=== PATIENT | female | born 1935 | race Caucasian/White ===

== ENCOUNTER → 2016-11-24 | Outpatient (CLI) | payer MEDICARE, BC ==
--- NOTE | 2016-11-25 13:09 | MM ---
Reason for exam: screening (asymptomatic). Last mammogram was performed 1 year and 1 month ago. History: Patient is postmenopausal. Benign right US cyst aspiration of the right breast, July 11, 2006. Benign stereotactic core biopsy of the left breast, February 22, 2003. Core biopsy of the left breast. Took estrogen for 33 years beginning at age 41. Physical Findings: A clinical breast exam by your physician is recommended on an annual basis and results should be correlated with mammographic findings. MG 3D Screening Mammo W/Cad Bilateral CC and MLO view(s) were taken. Prior study comparison: November 06, 2015, bilateral MG 3d screening mammo w/cad. October 30, 2014, bilateral MG screening mammo w CAD. October 02, 2013, bilateral MG screening mammo w CAD. September 29, 2011, bilateral digital screening mammo w/CAD. The breast tissue is heterogeneously dense. This may lower the sensitivity of mammography. There are benign appearing bilateral calcifications present back to 8-8-12. No suspicious abnormality. No significant changes when compared with prior studies. ASSESSMENT: Benign, BI-RAD 2 RECOMMENDATION: Routine screening mammogram of both breasts in 1 year.
== END | disposition home or self-care (01) ==
LOC: RADMAMWWP 11:00
PROVIDERS: ATTEND Family Medicine
DX: Z12.31 Encounter for screening mammogram for malignant neoplasm of breast (principal)
CPT/HCPCS: 77063; G0202

== ENCOUNTER → 2020-09-10 | Outpatient (CLI) | payer MEDICARE, BC ==
[~2020-09-10] MED LIST: IOPAMIDOL CONTRAST (ORAL USE) VIAL PO PRN
--- NOTE | 2020-09-10 10:40 | CT ---
EXAMINATION TYPE: CT abdomen pelvis wo con DATE OF EXAM: 09/10/2020 COMPARISON: None HISTORY: Bowel obstruction CT DLP: 261.00 mGycm Examination of the solid and hollow viscera is limited given the lack of contrast. FINDINGS: LUNG BASES: No evidence for nodule. No evidence for infiltrate. LIVER/GB: The gallbladder is unremarkable. No space-occupying hepatic lesion. PANCREAS: No pancreatic mass identified. No inflammatory process seen. SPLEEN: No evidence for splenomegaly. No intrasplenic lesions seen. ADRENALS: No adrenal nodules identified. No evidence for thickening. KIDNEYS: No evidence for renal mass. No nephrolithiasis. No hydronephrosis. BOWEL: Appendix has a normal appearance. No evidence of bowel obstruction. No inflammatory process. T he stomach is almost entirely intrathoracic in location. Contrast is noted within the small bowel. No dilated bowel identified. No evidence for free air or abscess. All Lymph nodes: No evidence for adenopathy greater than 1 cm. Abdominal aorta: Atheromatous changes seen. No evidence for aneurysm. Genital organs: No significant abnormality. Other: No significant abnormality. IMPRESSION: The stomach is almost entirely intrathoracic in location. No evidence for obstruction. No inflammator y process.
--- NOTE | 2020-09-10 13:13 | FL ---
EXAMINATION TYPE: FL barium swallow DATE OF EXAM: 09/10/2020 CLINICAL HISTORY: Hiatal hernia TECHNIQUE: A double contrast esophagram is performed utilizing air and barium. A total of 42 second s of fluoroscopic time was utilized during procedure and 71 images obtained. COMPARISON: None FINDINGS: There is normal transit of contrast through the esophagus without holdup. No definite intri nsic or extrinsic mass is seen. No gastroesophageal reflux was observed. Organoaxial volvulus is susp ected. 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
== END | disposition home or self-care (01) ==
LOC: RADCTMAIN 07:45
PROVIDERS: ATTEND Surgery Plastic and Reconstructive Surgery
DX: K44.9 Diaphragmatic hernia without obstruction or gangrene (principal)
CPT/HCPCS: 36415; 74176; 74220; 82565; 84520

== ENCOUNTER 2020-09-24 07:27 | Day surgery (SDC) | payer MEDICARE, BC ==
[2020-09-19 10:08] VITALS: BMI 24.5
[~2020-09-24 07:27] MED LIST changes: -IOPAMIDOL CONTRAST (ORAL USE) VIAL PO PRN; +LACTATED RINGERS 1,000 ML IV SCH
[2020-09-24 07:50] VITALS: RESP 16; TEMP 96.4
[2020-09-24] MEDS ORDERED: LIDOCAINE 1% INJ 10MG/ML (20 ML MDV) ONE (08:13)
[2020-09-24] MEDS ORDERED: PROPOFOL 10 MG/ML 20 ML VIAL IV ONE (08:13)
--- NOTE | 2020-09-24 08:18 | P.GSHP ---
History of Present Illness H&P Date: 09/24/20 CHIEF COMPLAINT: GERD HISTORY OF PRESENT ILLNESS: The patient is a 85-year-old female who presents reports gastroesophageal reflux disease. Upper endoscopy was offered for further evaluation and management. PAST MEDICAL HISTORY: Please see list. PAST SURGICAL HISTORY: Please see list. MEDICATIONS: Please see list. ALLERGIES: Please see list. SOCIAL HISTORY: No illicit drug use FAMILY HISTORY: No reports of Crohn disease or ulcerative colitis. REVIEW OF ORGAN SYSTEMS: CONSTITUTIONAL: No reports of fevers or chills. GI: Denies any blood in stools or constipation. PHYSICAL EXAM: VITAL SIGNS: Stable GENERAL: Well-developed and pleasant in no acute distress. HEENT: No scleral icterus. Extraocular movements grossly intact. Moist buccal mucosa. NECK: Supple without lymphadenopathy. CHEST: Unlabored respirations. Equal bilateral excursions. CARDIOVASCULAR: Regular rate and rhythm. Distal 2+ pulses. ABDOMEN: Soft, nondistended. MUSCULOSKELETAL: No clubbing, cyanosis, or edema. ASSESSMENT: 1. Gastroesophageal reflux disease PLAN: 1. Recommend proceeding with an upper endoscopy Patient has advanced directive Past Medical History Past Medical History: GERD/Reflux, Hyperlipidemia, Hypertension, Osteoarthritis (OA), Renal Disease, Skin Disorder Additional Past Medical History / Comment(s): hiatal hernia, sensitive skin, "weak bladder"-urinary leakage, reflux/gas/abdominal pain especially when bending over, varicose veins History of Any Multi-Drug Resistant Organisms: None Reported Past Surgical History: Appendectomy, Bladder Surgery, Cardiac Valve Replacement, Heart Catheterization, Hysterectomy, Orthopedic Surgery Additional Past Surgical History / Comment(s): aortic valve replacement 2019, rt leg surgery for varicose veins, eliana carpal tunnel, bladder sling, eliana cataracts Past Anesthesia/Blood Transfusion Reactions: Motion Sickness Smoking Status: Never smoker - Past Family History Mother Family Medical History: No Reported History Medications and Allergies Home Medications Medication Instructions Recorded Confirmed Type Aspirin [Adult Low Dose Aspirin EC] 81 mg PO DAILY 09/19/20 09/24/20 History Levothyroxine Sodium [Synthroid] 88 mcg PO DAILY 09/19/20 09/19/20 History Metoprolol Tartrate [Lopressor] 25 mg PO BID 09/19/20 09/19/20 History Multivit-Min/FA/Lycopen/Lutein 1 each PO DAILY 09/19/20 09/19/20 History [Centrum Silver Tablet] [place]-3 Fatty Acids/Fish Oil [Fish 1 each PO DAILY 09/19/20 09/19/20 History Oil 1,000 mg Softgel] Omeprazole [PriLOSEC] 40 mg PO W/SUPPER 09/19/20 09/24/20 History Ubidecarenone [Co Q-10] 100 mg PO DAILY 09/19/20 09/24/20 History gemfibroziL [Lopid] 600 mg PO AC-BID 09/19/20 09/19/20 History Allergies Allergy/AdvReac Type Severity Reaction Status Date / Time adhesive tape Allergy Rash/Hives Verified 09/24/20 07:44 doxycycline Allergy Unknown Verified 09/24/20 07:44 Sulfa (Sulfonamide Allergy Unknown Verified 09/24/20 07:44 Antibiotics) Surgical - Exam Vital Signs Temp Pulse Resp BP Pulse Ox 96.4 F L 55 L 16 140/66 96 09/24/20 07:46 09/24/20 07:46 09/24/20 07:46 09/24/20 07:46 09/24/20 07:46
--- NOTE | 2020-09-24 08:42 | P.PCN ---
Date of Procedure: 09/24/20 Description of Procedure: PREOPERATIVE DIAGNOSIS: Gastroesophageal reflux disease. Hiatal hernia POSTOPERATIVE DIAGNOSIS: Gastritis. Gastroesophageal reflux disease. Diaphragmatic hiatal hernia, paraesophageal OPERATION: Esophagogastroduodenoscopy with biopsies along antrum. SURGEON: Dominga Villar MD ANESTHESIA: MAC. INDICATIONS: The patient is a 85-year-old female who presents with a history of reflux disease. Benefits and risks of the procedure were described. Informed consent was obtained. DESCRIPTION: The patient was brought into the endoscopy suite and laid in the left lateral decubitus position. An Olympus gastroscope was passed along the posterior oropharynx down to the distal esophagus where the squamocolumnar junction was encountered at 32 cm from the incisors. The stomach was entered and no bile reflux was found. Additional findings are listed below. Biopsies with cold for ceps were obtained of the antrum. The first through third portion of the duodenum was examined and unremarkable. Retroflexion of the scope confirmed Hill grade 4 lower esophageal valve. The squamocolumnar junction demonstrated LA grade A erosive esophagitis. The stomach was desufflated. The patient tolerated the procedure well. FINDINGS: Squamocolumnar junction 32 cm from the incisors. Diaphragmatic hiatus at 35 cm. 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 LA grade A erosive esophagitis. No active duodenitis. Chronic gastritis RECOMMENDATIONS: 1. Recommend CT of the chest and/or esophagram to elucidate paraesophageal hiatal hernia Plan - Discharge Summary New Discharge Prescriptions: Continue Ubidecarenone [Co Q-10] 100 mg PO DAILY Multivit-Min/FA/Lycopen/Lutein [Centrum Silver Tablet] 1 each PO DAILY gemfibroziL [Lopid] 600 mg PO AC-BID Metoprolol Tartrate [Lopressor] 25 mg PO BID Aspirin [Adult Low Dose Aspirin EC] 81 mg PO DAILY [place]-3 Fatty Acids/Fish Oil [Fish Oil 1,000 mg Softgel] 1 each PO DAILY Omeprazole [PriLOSEC] 40 mg PO W/SUPPER Levothyroxine Sodium [Synthroid] 88 mcg PO DAILY Discharge Medication List Aspirin [Adult Low Dose Aspirin EC] 81 mg PO DAILY 09/19/20 [History] Levothyroxine Sodium [Synthroid] 88 mcg PO DAILY 09/19/20 [History] Metoprolol Tartrate [Lopressor] 25 mg PO BID 09/19/20 [History] Multivit-Min/FA/Lycopen/Lutein [Centrum Silver Tablet] 1 each PO DAILY 09/19/20 [History] [place]-3 Fatty Acids/Fish Oil [Fish Oil 1,000 mg Softgel] 1 each PO DAILY 09/19/20 [History] Omeprazole [PriLOSEC] 40 mg PO W/SUPPER 09/19/20 [History] Ubidecarenone [Co Q-10] 100 mg PO DAILY 09/19/20 [History] gemfibroziL [Lopid] 600 mg PO AC-BID 09/19/20 [History] Follow up Appointment(s)/Referral(s): Dominga Villar MD [STAFF PHYSICIAN] - 09/30/20 Patient Instructions/Handouts: Hiatal Hernia (DC) Discharge Disposition: HOME SELF-CARE
[2020-09-24 09:04] VITALS: BP 102/59; PULSE 66
== END 2020-09-24 10:00 | disposition home or self-care (01) ==
LOC: ORWHC2ENDO 07:27
PROVIDERS: ATTEND Surgery Plastic and Reconstructive Surgery
DX: K29.70 Gastritis, unspecified, without bleeding (principal); K44.9 Diaphragmatic hernia without obstruction or gangrene; E78.5 Hyperlipidemia, unspecified; K21.9 Gastro-esophageal reflux disease without esophagitis; I10 Essential (primary) hypertension; M19.90 Unspecified osteoarthritis, unspecified site; Z79.82 Long term (current) use of aspirin; Z88.2 Allergy status to sulfonamides; Z90.49 Acquired absence of other specified parts of digestive tract; Z95.2 Presence of prosthetic heart valve
CPT/HCPCS: 43239; 88305; J2001; J2704

== ENCOUNTER 2020-11-12 11:55 | Inpatient (IN) | payer MEDICARE, BC ==
[~2020-11-12 11:55] MED LIST changes: +HEPARIN SODIUM,PORCINE 10,000 UNIT in SODIUM CHLORIDE 0.9% 1,000 ML IRRIGATION PRN; +HEPARIN SODIUM,PORCINE 2,500 UNIT in SODIUM CHLORIDE 0.9% 250 ML IRRIGATION PRN; -LACTATED RINGERS 1,000 ML IV SCH
--- NOTE | 2020-11-12 12:57 | ED ---
Chest Pain HPI - General Chief Complaint: Chest Pain Stated Complaint: elevated troponin Time Seen by Provider: 11/12/20 12:13 Source: patient, EMS, RN notes reviewed Mode of arrival: EMS Limitations: no limitations - History of Present Illness Initial Comments: 85-year-old female with hypertension history of thyroid disease history of cardiac valve replacement who presents from The hospital after presenting this morning with complaints of chest pain last evening states the pain was sharp across her chest down both arms and across her back. Lasted 2 or 3 hours she said she felt better when she laid down. This morning she is asymptomatic she was found the have a markedly elevated troponin no obvious ST elevation lower. She currently has no pain no place at this time. He did recently have a hiatal hernia repair done about one week ago at [facility] in [facility] Complaint: chest pain - Related Data Home Medications Medication Instructions Recorded Confirmed Aspirin [Adult Low Dose Aspirin EC] 81 mg PO DAILY 09/19/20 09/24/20 Levothyroxine Sodium [Synthroid] 88 mcg PO DAILY 09/19/20 09/19/20 Metoprolol Tartrate [Lopressor] 25 mg PO BID 09/19/20 09/19/20 Multivit-Min/FA/Lycopen/Lutein 1 each PO DAILY 09/19/20 09/19/20 [Centrum Silver Tablet] [place]-3 Fatty Acids/Fish Oil [Fish 1 each PO DAILY 09/19/20 09/19/20 Oil 1,000 mg Softgel] Omeprazole [PriLOSEC] 40 mg PO W/SUPPER 09/19/20 09/24/20 Ubidecarenone [Co Q-10] 100 mg PO DAILY 09/19/20 09/24/20 gemfibroziL [Lopid] 600 mg PO AC-BID 09/19/20 09/19/20 Allergies Allergy/AdvReac Type Severity Reaction Status Date / Time adhesive tape Allergy Rash/Hives Verified 09/24/20 07:44 doxycycline Allergy Unknown Verified 09/24/20 07:44 Sulfa (Sulfonamide Allergy Unknown Verified 09/24/20 07:44 Antibiotics) Review of Systems ROS Statement: Those systems with pertinent positive or pertinent negative responses have been documented in the HPI. ROS Other: All systems not noted in ROS Statement are negative. EKG Findings - EKG Results: EKG: interpreted by ERMD, sinus rhythm (Sinus rhythm a 65. Interval 136 QRS anabaptist 86 QT since QTC 4:30/447 evidence of possible left atrial enlargement old inferior changes this is unchanged from the EKG presented from [facility].) Past Medical History Past Medical History: Atrial Fibrillation, GERD/Reflux, Hyperlipidemia, Thyroid Disorder Past Surgical History: Adenoidectomy, Cardiac Valve Replacement, Hernia Repair Additional Past Surgical History / Comment(s): heart valve Smoking Status: Never smoker Past Alcohol Use History: Rare Past Drug Use History: None Reported General Exam - General Exam Comments Initial Comments: This is a well-developed well-nourished awake alert oriented 3 female Limitations: no limitations General appearance: alert, in no apparent distress Head exam: Present: atraumatic, normocephalic, normal inspection Eye exam: Present: normal appearance, PERRL, EOMI. Absent: scleral icterus, conjunctival injection, periorbital swelling ENT exam: Present: normal exam, mucous membranes moist Neck exam: Present: normal inspection. Absent: tenderness, meningismus, lymphadenopathy Respiratory exam: Present: normal lung sounds bilaterally. Absent: respiratory distress, wheezes, rales, rhonchi, stridor Cardiovascular Exam: Present: regular rate, normal rhythm, normal heart sounds. Absent: systolic murmur, diastolic murmur, rubs, gallop, clicks GI/Abdominal exam: Present: soft, normal bowel sounds. Absent: distended, tenderness, guarding, rebound, rigid Extremities exam: Present: normal inspection, full ROM, normal capillary refill. Absent: tenderness, pedal edema, joint swelling, calf tenderness Back exam: Present: normal inspection Neurological exam: Present: alert, oriented X3, CN II-XII intact Psychiatric exam: Present: normal affect, normal mood Skin exam: Present: warm, dry, intact, normal color. Absent: rash Course Vital Signs 11/12/20 11:58 Temperature 98.7 F Pulse Rate 66 Respiratory 18 Rate Blood Pressure 128/61 O2 Sat by Pulse 95 Oximetry Chest Pain MDM - MDM I did review the materials presented from [facility] I did discuss the case both with Dr. Ruiz and Dr. Mast from cardiology. Patient will be admitted for further evaluation and treatment. Disposition Clinical Impression: Non-ST elevation myocardial infarction (NSTEMI), Chest pain Disposition: ADMITTED IP TO THIS HOSP Condition: Fair Referrals: Ayden Adrian MD [Primary Care Provider] - 1-2 days
[2020-11-12] MEDS ORDERED: HEPARIN SODIUM 1,000 UN/ML (10ML VL) IV PRN (12:58)
[2020-11-12] MEDS ORDERED: HEPARIN SOD,PORK IN 0.45% NACL 25,000 UNIT in 0.45% NACL 1 250ML.BAG IV SCH (13:00)
[2020-11-12] MEDS ORDERED: NALOXONE 0.4 MG/ML 1 ML VIAL IV PRN (13:01)
[2020-11-12] MEDS ORDERED: NITROGLYCERIN SL TABS 0.4 MG TAB SUBLINGUAL PRN (13:08)
[2020-11-12] MEDS ORDERED: ATORVASTATIN 80 MG TAB PO STA (13:08)
[2020-11-12] MEDS ORDERED: ASPIRIN 325 MG TAB PO STA (13:08)
[2020-11-12] MEDS ORDERED: SODIUM CHLORIDE 0.9% 1,000 ML in EMPTY BAG 1 BAG IV ONE (13:08)
[2020-11-12] MEDS ORDERED: ALPRAZolam 0.5 MG TAB PO PRN (13:08)
[2020-11-12] MEDS ORDERED: ALPRAZolam 0.25 MG TAB PO PRN (13:08)
[2020-11-12 13:25] LABS: Basophils % (A) 0 %; Eosinophils # (A) 0.3 k/uL (0-0.7); Eosinophils % (A) 3 %; HCT 34.4 % (34.0-46.0); HGB 11.3 gm/dL (11.4-16.0); Lymphocytes # (A) 1.4 k/uL (1.0-4.8); Lymphocytes % (A) 13 %; MCHC 32.8 g/dL (31.0-37.0); MCV 97.4 fL (80.0-100.0); Mean Platelet Volume 9.2; Monocytes # (A) 0.6 k/uL (0-1.0); Monocytes % (A) 6 %; Neutrophils # (A) 8.4 k/uL (1.3-7.7); Neutrophils % (A) 77 %; Platelet Count 308 k/uL (150-450); RBC 3.53 m/uL (3.80-5.40); RDW 12.4 % (11.5-15.5); WBC 10.9 k/uL (3.8-10.6)
[2020-11-12 13:49] LABS: INR 1.1 (<1.2); Prothrombin Time 11.7 sec (9.0-12.0)
[2020-11-12 14:03] LABS: Partial Thromboplastin Time 118.2 sec (22.0-30.0)
[2020-11-12 16:51] LABS: Glucose,Whole Blood 121 mg/dL (75-99)
[2020-11-12] MEDS ORDERED: MAG HYDROX/AL HYDROX/SIMETH 30 ML CUP PO PRN (17:18)
[2020-11-12] MEDS ORDERED: ACETAMINOPHEN TAB 325 MG TAB PO PRN (17:18)
[2020-11-12] MEDS ORDERED: MELATONIN 3 MG TABLET PO PRN (17:18)
[2020-11-12] MEDS ORDERED: CALCIUM CARBONATE 500 MG CHEWABLE PO PRN (17:18)
[2020-11-12] MEDS ORDERED: ONDANSETRON 4 MG/2 ML VIAL IVP PRN (17:18)
--- NOTE | 2020-11-12 17:20 | P.HPIM ---
History of Present Illness H&P Date: 11/12/20 Chief Complaint: Chest pain History of presenting complaint: This is a pleasant 85-year-old patient follows with Dr. Adrian. 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 Patient had an incarcerated stomach and one week ago underwent hiatal hernia repair by in [facility]. Patient was referred by Dr. Riojas, of her surgeon from [facility]. Patient also has a PEG tube to support the stomach and does not use for feeding. Patient is on a liquid diet with no lumps and bumps. Patient's had stress test in the past on a bit negative and does follow with a nanny caregiver. Yesterday patient's is feeling tired and yesterday evening started having chest pain. It went down to both the arms. Did dizzy. This morning went to [facility]. Patient reported for acute PR with a troponin in up to 24. EKG showed peaked T waves. Cartilage was consulted. Patient seen by Dr. Velazquez and is planning to take the patient to the cardiac cath lab manager. Patient has some residual chest pain. Patient's [id number] at the bedside. Patient recently sold a house and is in process of moving to [place]. Review of systems: GEN.: Tired EYES: None HEENT: None NECK: None RESPIRATORY: None CARDIOVASCULAR: [As above GASTROINTESTINAL: Occasional heartburn GENITOURINARY: Urinary incontinence MUSCULOSKELETAL: Joint pains LYMPHATICS: None HEMATOLOGICAL: None PSYCHIATRY: None NEUROLOGICAL: None Past medical history to include: Hypertension, hypothyroid, osteoarthritis, GERD Past surgical history to include: Adenoidectomy, aortic valve replacement with a bovine valve, hiatal hernia repair Social history: No smoking. Alcohol rarely. Currently living with her son and [id number]. Physical examination: VITAL SIGNS: 98.7, 66, 18, 1 28 x 61, 95% on room air GENERAL: BMI 23.6, laying in bed, awake. EYES: Pupils equal. Conjunctiva normal. HEENT: External appearance of nose and ears normal, oral cavity grossly normal. NECK: JVD not raised; masses not palpable. HEART: First and second heart sounds are normal; no edema. LUNGS: Respiratory rate normal; clear to auscultation. ABDOMEN: Soft, nontender, liver spleen not palpable, no masses palpable, PEG tube. PSYCH: Alert and oriented x3; mood and affect normal. 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 LYMPHATICS: No lymph nodes palpable in the axilla and neck INVESTIGATIONS, reviewed in the clinical context: White count 10.9 hemoglobin 11.3 platelets 308 Troponin I 39.8 Lab work from [facility]: Sodium 133, potassium 3.8, BUN 15, creatinine 1, AST 170, AST 35, bilirubin 0.7, WBC 9.1, hemoglobin 9.4, EKG tracing personally reviewed by me-prominent peaked T waves Assessment and plan: -Acute non-ST elevation myocardial infarction IV heparin. Aspirin. Lipitor. Patient seen by Dr. Mast from [facility]. Pending cardiac cardiac cath lab manager. -IV heparin monitoring Follow PTT -Essential hypertension Lopressor 25 mg twice a day -Hypothyroid Synthroid 88 g a day -GERD Prilosec 40 mg with supper -Hyperlipidemia Lopid 600 mg twice a day -Patient 1 week ago underwent repair of incarcerated stomach and has a PEG tube to hold the stomach intra-abdominally. It is not to be used for feeding. Patient is on a clear liquid diet for the same. Care was discussed with the patient and [id number] at the bedside. Home medications resumed. IV heparin. Aspirin, beta alessandro, Lipitor. Pending cardiac catheterization. Given the complexity and severity of patient's condition expect the patient to be in the hospital at least for 2 overnights Past Medical History Past Medical History: Atrial Fibrillation, GERD/Reflux, Hyperlipidemia, Thyroid Disorder Past Surgical History: Adenoidectomy, Cardiac Valve Replacement, Hernia Repair Additional Past Surgical History / Comment(s): heart valve Smoking Status: Never smoker Past Alcohol Use History: Rare Past Drug Use History: None Reported Medications and Allergies Home Medications Medication Instructions Recorded Confirmed Type Aspirin [Adult Low Dose Aspirin EC] 81 mg PO DAILY 09/19/20 11/12/20 History Levothyroxine Sodium [Synthroid] 88 mcg PO DAILY 09/19/20 11/12/20 History Metoprolol Tartrate [Lopressor] 25 mg PO BID 09/19/20 11/12/20 History Multivit-Min/FA/Lycopen/Lutein 1 tab PO DAILY 09/19/20 11/12/20 History [Centrum Silver Tablet] [place]-3 Fatty Acids/Fish Oil [Fish 1 cap PO DAILY 09/19/20 11/12/20 History Oil 1,000 mg Softgel] Omeprazole [PriLOSEC] 40 mg PO W/SUPPER 09/19/20 11/12/20 History Ubidecarenone [Co Q-10] 100 mg PO DAILY 09/19/20 11/12/20 History gemfibroziL [Lopid] 600 mg PO AC-BID 09/19/20 11/12/20 History Allergies Allergy/AdvReac Type Severity Reaction Status Date / Time adhesive tape Allergy Rash/Hives Verified 11/12/20 12:52 doxycycline Allergy Unknown Verified 11/12/20 12:52 Sulfa (Sulfonamide Allergy Unknown Verified 11/12/20 12:52 Antibiotics) Physical Exam Vitals: Vital Signs Temp Pulse Resp BP Pulse Ox 11/12/20 16:53 68 18 117/54 94 L 11/12/20 15:40 64 18 112/64 94 L 11/12/20 13:56 67 18 115/57 94 L 11/12/20 13:11 65 18 121/59 98 11/12/20 11:58 98.7 F 66 18 128/61 95 Intake and Output 11/12/20 11/12/20 11/12/20 06:59 14:59 22:59 Intake Total 5.103 0 Balance 5.103 0 Intake: Intake, IV Titration 5.103 0 Amount Heparin Sod,Pork in 0.45% 5.103 0 NaCl 25,000 unit In 0.45 % NaCl 1 250ml.bag @ 12 UNITS/KG/HR 6.804 mls/hr IV .Q24H [facility] Rx#: [id number] Other: Weight 56.699 kg Results CBC & Chem 7: 11/12/20 13:00 Labs: Abnormal Lab Results - Last 24 Hours (Table) 11/12/20 11/12/20 11/12/20 Range/Units 13:00 13:00 13:00 WBC 10.9 H (3.8-10.6) k/uL RBC 3.53 L (3.80-5.40) m/uL Hgb 11.3 L (11.4-16.0) gm/dL Neutrophils # 8.4 H (1.3-7.7) k/uL APTT 118.2 H* (22.0-30.0) sec POC Glucose (mg/dL) (75-99) mg/dL Troponin I 39.800 H* (0.000-0.034) ng/mL 11/12/20 11/12/20 Range/Units 15:55 16:48 WBC (3.8-10.6) k/uL RBC (3.80-5.40) m/uL Hgb (11.4-16.0) gm/dL Neutrophils # (1.3-7.7) k/uL APTT (22.0-30.0) sec POC Glucose (mg/dL) 121 H (75-99) mg/dL Troponin I 38.100 H* (0.000-0.034) ng/mL
--- NOTE | 2020-11-12 17:49 | XR ---
EXAMINATION TYPE: XR chest 1V portable DATE OF EXAM: 11/12/2020 COMPARISON: NONE HISTORY: Hip fracture. TECHNIQUE: Single frontal view of the chest is obtained. FINDINGS: There is a comminuted, mildly displaced right intertrochanteric fracture. IMPRESSION: There is a comminuted, mildly displaced right intertrochanteric fracture.
[2020-11-12] MEDS ORDERED: LIDOCAINE 1% INJ 10MG/ML (20 ML MDV) ONE (18:00)
[2020-11-12] MEDS ORDERED: HEPARIN SODIUM 1,000 UN/ML (10ML VL) ONE (18:00)
[2020-11-12] MEDS ORDERED: VERAPAMIL 2.5 MG/ML 2 ML AMP ONE (18:00)
[2020-11-12] MEDS ORDERED: IV FLUID CONTINUATION 900 ML IV ONE (18:08)
--- NOTE | 2020-11-12 18:08 | P.CRDCN ---
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 The patient presented to the emergency department complaining of chest discomfort. She was in her usual state of health yesterday when she was at home and suddenly started experiencing discomfort in the middle of the chest as a pressure on the chest radiating to her back associated with numbness in both arms. The chest discomfort yesterday was associated with sweating. Currently the patient is having mild ongoing chest discomfort. She was also experiencing some shortness of breath. No dizziness or lightheadedness and no presyncope or syncope. In the emergency department the initial EKG showed sinus rhythm with peaked T waves. Beside that the troponin came in to be severely abnormal coronary syndrome. Because of that heart catheterization was advised. The patient stated that she underwent transcutaneous aortic valve replacement in the past and she underwent a heart catheterization before the procedure and that was unremarkable. Without have any higher medical records at this point. Her blood work reviewed including the CBC and BMP. The patient is in process to undergo a heart catheterization. Past Medical History Past Medical History: Atrial Fibrillation, GERD/Reflux, Hyperlipidemia, Thyroid Disorder Past Surgical History: Adenoidectomy, Cardiac Valve Replacement, Hernia Repair Additional Past Surgical History / Comment(s): heart valve Smoking Status: Never smoker Past Alcohol Use History: Rare Past Drug Use History: None Reported Medications and Allergies Home Medications Medication Instructions Recorded Confirmed Type Aspirin [Adult Low Dose Aspirin EC] 81 mg PO DAILY 09/19/20 11/12/20 History Levothyroxine Sodium [Synthroid] 88 mcg PO DAILY 09/19/20 11/12/20 History Metoprolol Tartrate [Lopressor] 25 mg PO BID 09/19/20 11/12/20 History Multivit-Min/FA/Lycopen/Lutein 1 tab PO DAILY 09/19/20 11/12/20 History [Centrum Silver Tablet] [place]-3 Fatty Acids/Fish Oil [Fish 1 cap PO DAILY 09/19/20 11/12/20 History Oil 1,000 mg Softgel] Omeprazole [PriLOSEC] 40 mg PO W/SUPPER 09/19/20 11/12/20 History Ubidecarenone [Co Q-10] 100 mg PO DAILY 09/19/20 11/12/20 History gemfibroziL [Lopid] 600 mg PO AC-BID 09/19/20 11/12/20 History Allergies Allergy/AdvReac Type Severity Reaction Status Date / Time adhesive tape Allergy Rash/Hives Verified 11/12/20 12:52 doxycycline Allergy Unknown Verified 11/12/20 12:52 Sulfa (Sulfonamide Allergy Unknown Verified 11/12/20 12:52 Antibiotics) Physical Exam Vitals: Vital Signs Temp Pulse Resp BP Pulse Ox 11/12/20 17:45 81 18 128/57 95 11/12/20 16:53 68 18 117/54 94 L 11/12/20 15:40 64 18 112/64 94 L 11/12/20 13:56 67 18 115/57 94 L 11/12/20 13:11 65 18 121/59 98 11/12/20 11:58 98.7 F 66 18 128/61 95 Intake and Output 11/12/20 11/12/20 11/12/20 06:59 14:59 22:59 Intake Total 5.103 0 Balance 5.103 0 Intake: Intake, IV Titration 5.103 0 Amount Heparin Sod,Pork in 0.45% 5.103 0 NaCl 25,000 unit In 0.45 % NaCl 1 250ml.bag @ 12 UNITS/KG/HR 6.804 mls/hr IV .Q24H [facility] Rx#: [id number] Other: Weight 56.699 kg - Constitutional General appearance: no acute distress - Cardiovascular Rhythm: regular Heart sounds: normal: S1, S2 Abnormal Heart Sounds: systolic murmur Results 11/12/20 13:00 Cardiac Enzymes 11/12/20 11/12/20 Range/Units 13:00 15:55 Troponin I 39.800 H* 38.100 H* (0.000-0.034) ng/mL Coagulation 11/12/20 Range/Units 13:00 PT 11.7 (9.0-12.0) sec APTT 118.2 H* (22.0-30.0) sec CBC 11/12/20 Range/Units 13:00 WBC 10.9 H (3.8-10.6) k/uL RBC 3.53 L (3.80-5.40) m/uL Hgb 11.3 L (11.4-16.0) gm/dL Hct 34.4 (34.0-46.0) % Plt Count 308 (150-450) k/uL Current Medications Generic Name Dose Route Start Last Admin Trade Name Freq PRN Reason Stop Dose Admin Acetaminophen 650 mg 11/12/20 17:18 Acetaminophen Tab 325 Mg Tab PO Q6HR PRN Mild Pain or Fever > 100.5 Al Hydroxide/Mg Hydroxide 15 ml 11/12/20 17:18 Mag Hydrox/Al Hydrox/Simeth 30 Ml Cup PO Q6HR PRN Indigestion Alprazolam 0.25 mg 11/12/20 13:08 Alprazolam 0.25 Mg Tab PO Q6HR PRN Mild Anxiety Alprazolam 0.5 mg 11/12/20 13:08 Alprazolam 0.5 Mg Tab PO Q6HR PRN Moderate Anxiety Calcium Carbonate/Glycine 1,000 mg 11/12/20 17:18 Calcium Carbonate 500 Mg Chewable PO Q4HR PRN Dyspepsia Heparin Sodium (Porcine) 0 unit 11/12/20 12:58 Heparin Sodium 1,000 Un/Ml (10ml Vl) IV PER PROTOCOL PRN Low PTT Protocol Heparin Sodium/Sodium Chloride 250 mls @ 6.804 mls/hr 11/12/20 13:00 11/12/20 15:38 25,000 unit/ Sodium Chloride IV 9 units/kg/hr .Q24H JOZEF 5.103 mls/hr Titration Protocol 12 UNITS/KG/HR Sodium Chloride 1,000 ml/ IV 1,000 mls @ 56.699 mls/hr 11/12/20 13:08 10/23 04/13 13:28 Solution IV 11/13/20 06:46 56.699 mls/hr .[id number] ONE Administration 1 ML/KG/HR Heparin Sodium (Porcine) 10, 1,001 mls @ 999 mls/hr 11/12/20 07:00 000 unit/ Sodium Chloride IRRIGATION 11/12/20 23:00 ONCE PRN INTRA-OP Heparin Sodium (Porcine) 2,500 250.5 mls @ 250 mls/hr 11/12/20 07:00 unit/ Sodium Chloride IRRIGATION 11/12/20 23:00 ONCE PRN INTRA-OP Levothyroxine Sodium 88 mcg 11/13/20 06:30 Levothyroxine 88 Mcg Tab PO DAILY@0630 [facility] Melatonin 3 mg 11/12/20 17:18 Melatonin 3 Mg Tablet PO HS PRN Insomnia Metoprolol Tartrate 25 mg 11/12/20 21:00 Metoprolol Tartrate 25 Mg Tab PO BID [facility] Naloxone HCl 0.2 mg 11/12/20 13:01 Naloxone 0.4 Mg/Ml 1 Ml Vial IV Q2M PRN Opioid Reversal Nitroglycerin 0.4 mg 11/12/20 13:08 Nitroglycerin Sl Tabs 0.4 Mg Tab SUBLINGUAL Q5M PRN Chest Pain Ondansetron HCl 4 mg 11/12/20 17:18 Ondansetron 4 Mg/2 Ml Vial IVP Q8HR PRN Nausea And Vomiting Pantoprazole Sodium 40 mg 11/12/20 17:30 Pantoprazole 40 Mg Tablet PO W/SUPPER [facility] Intake and Output 11/12/20 11/12/20 11/12/20 06:59 14:59 22:59 Intake Total 5.103 0 Balance 5.103 0 Intake: Intake, IV Titration 5.103 0 Amount Heparin Sod,Pork in 0.45% 5.103 0 NaCl 25,000 unit In 0.45 % NaCl 1 250ml.bag @ 12 UNITS/KG/HR 6.804 mls/hr IV .Q24H [facility] Rx#: [id number] Other: Weight 56.699 kg Patient Weight 11/13/20 06:59 Weight 56.699 kg 11/12/20 13:00 Assessment and Plan Assessment: Assessment #1 acute coronary syndrome #2 valvular heart disease and status post vascular tenderness aortic valve replacement #3 hypertension #4 dyslipidemia # recent surgery for incarcerated stomach and placement of PEG tube Plan #1 The patient was advised to undergo a coronary angiogram #2 the procedure in details was explained to her #3 Continue aspirin and high intensity statin and heparin and metoprolol #4 obtain an echocardiogram was Doppler #5 follow-up with the patient
[2020-11-12] MEDS ORDERED: MIDAZOLAM 2 MG/2 ML VIAL IV ONE (18:23)
[2020-11-12] MEDS ORDERED: LIDOCAINE 1% INJ 10MG/ML (20 ML MDV) SQ ONE (18:24)
[2020-11-12] MEDS ORDERED: VERAPAMIL SYRINGE (5 MG/10 ML) INTRAARTER ONE (18:26)
[2020-11-12] MEDS ORDERED: HEPARIN SODIUM 1,000 UN/ML (10ML VL) IV ONE (18:41)
[2020-11-12] MEDS ORDERED: IOPAMIDOL-370 125ML BTL INJ ONE (18:52)
[2020-11-12] MEDS ORDERED: RX INFO: IV CONTRAST WAS GIVEN 1 EACH MISC MISCELLANE PRN (18:57)
[2020-11-12] MEDS ORDERED: SODIUM CHLORIDE 0.9% 1,000 ML IV SCH (19:00)
--- NOTE | 2020-11-12 20:08 | CC ---
CARDIAC CATHETERIZATION REPORT DATE OF SERVICE: November 12, 2020. PERFORMING PHYSICIAN: Kain Velazquez MD. PROCEDURE PERFORMED: Selective right and left coronary angiogram. INDICATION: This is a pleasant 85-year-old female patient with hypertension and dyslipidemia and transcutaneous aortic valve replacement, who was transferred to the emergency department from another hospital with chest discomfort and abnormal cardiac enzymes consistent with non ST elevation myocardial infarction. APPROACH: Right radial artery. COMPLICATION: None. LEVEL OF SEDATION: Moderate with sedation length of 30 minutes. PROCEDURE DESCRIPTION: After obtaining informed consent, the patient was brought to the cardiac laborer filter plant. The right radial artery was cannulated using micropuncture technique, the micropuncture wire passed easily. Then I placed a 6-Khmer sheath at the right radial artery. Selective right and left coronary angiogram performed with JR4 and JL3.5 catheters. Left heart catheterization was not performed. SELECTIVE CORONARY ANGIOGRAM: 1. The right coronary artery is a medium caliber vessel and appeared to be a codominant vessel. The RCA appeared to have mild disease only. 2. The left main is a large caliber vessel. It bifurcates into left circumflex and left anterior descending artery. 3. The left circumflex is a large caliber vessel. It is a dominant vessel. The left circumflex proximally and distally appeared to be angiographically normal. After that, bifurcates into PDA and PLV branches. The PDA branch of the left circumflex appeared to be concerning for distal occlusion. The wire did not go through it very easily. 4. The LAD: The LAD appeared to have mild disease only. The LAD gives rise into multiple small diagonal branches. They appeared to be angiographically normal. 5. ATTEMPTED PCI OF THE LEFT CIRCUMFLEX: Anticoagulation was achieved using heparin with continuous ACT monitoring. Subsequently, I did engage the left main using JL3 guide. I did advance the wire to the distal left circumflex but the wire was not going through the PDA of the left circumflex very easily. Because I was not quite sure if the PDA is occluded or because of the angulation looks like it is occluded, I decided to stop. The procedure was completed without any complication. POSTPROCEDURE MANAGEMENT: 1. Dual anti-platelet therapy. 2. Aggressive cholesterol control. 3. Risk factor modifications. 4. Obtain echocardiogram with Doppler. 5. Follow up with the patient. MMODL / IJN: [id number] /
[2020-11-12] MEDS ORDERED: NITROGLYCERIN OINT 1 INCH/GM PACKET TOPICAL SCH (22:00)
[2020-11-12] MEDS: METOPROLOL TARTRATE 25 MG TAB PO SCH (22:34)
[2020-11-12] MEDS: PANTOPRAZOLE 40 MG TABLET PO SCH (22:34)
[2020-11-13] MEDS: LEVOTHYROXINE 88 MCG TAB PO SCH (06:16)
[2020-11-13 08:42] LABS: Basophils % (A) 0 %; Eosinophils # (A) 0.2 k/uL (0-0.7); Eosinophils % (A) 1 %; HCT 36.1 % (34.0-46.0); HGB 11.5 gm/dL (11.4-16.0); Lymphocytes # (A) 0.9 k/uL (1.0-4.8); Lymphocytes % (A) 6 %; MCH 31.2 pg (25.0-35.0); MCHC 31.7 g/dL (31.0-37.0); MCV 98.3 fL (80.0-100.0); Mean Platelet Volume 8.7; Monocytes % (A) 6 %; Neutrophils # (A) 13.1 k/uL (1.3-7.7); Neutrophils % (A) 85 %; Platelet Count 354 k/uL (150-450); RBC 3.67 m/uL (3.80-5.40); RDW 12.4 % (11.5-15.5); WBC 15.5 k/uL (3.8-10.6)
[2020-11-13 08:54] LABS: INR 1.1 (<1.2); Prothrombin Time 11.2 sec (9.0-12.0)
[2020-11-13] MEDS: ATORVASTATIN 40 MG TAB PO SCH (09:01)
[2020-11-13] MEDS: ASPIRIN 81 MG PO SCH (09:01)
[2020-11-13] MEDS: CLOPIDOGREL 75 MG TAB PO SCH (09:01)
[2020-11-13] MEDS: METOPROLOL TARTRATE 25 MG TAB PO SCH ×2 (09:01→22:10)
[2020-11-13 09:37] LABS: Calcium 8.8 mg/dL (8.4-10.2); Potassium 4.5 mmol/L (3.5-5.1)
--- NOTE | 2020-11-13 10:50 | P.PN ---
Subjective This is a pleasant 85 year old female past medical history significant for recent bowel resection, hypertension, TAVR, dyslipidemia and hypothyroidism. She underwent cardiac catheterization yesterday with Dr. Velazquez revealing distal occlusion of the PDA. No PCI performed. She is seen and examined laying flat in bed in no acute distress. She denies chest pain, shortness of breath, dizziness or palpitations. She complains of feeling nauseated with poor appetite. Blood pressure 112/59 heart rate 81 afebrile and maintaining oxygen saturation on room air. Laboratory data reviewed, WBC 15.5, hgb 11.5, plt 354, sodium 131, potassium 4.5, creatinine 0.86. Peak troponin 39.8. Telemetry tracings indicate SR with no arrhythmia. GENERAL: Well-appearing, well-nourished and in no acute distress. NECK: Supple without JVD or thyromegaly. LUNGS: Breath sounds clear to auscultation bilaterally. Respiration equal and unlabored. No wheezes, rales or rhonchi. HEART: Regular rate and rhythm with systolic ejection murmur at the base, no rubs or gallops. S1 and S2 heard. EXTREMITIES: Normal range of motion, no edema. No clubbing or cyanosis. P eripheral pulses intact. ASSESSMENT NSTEMI Valvular heart disease s/p TAVR Hypertension Dyslipidemia PLAN Echocardiogram has been obtained and will be reviewed. Check lactic acid. Add daily aspirin along with plavix. Add atorvastatin to her daily regimen. Increase activity and ambulation as tolerated. Nurse Practitioner note has been reviewed, I agree with a documented findings and plan of care. Patient was seen and examined. Objective - Vital Signs Vital signs: Vital Signs Temp 98.8 F 11/13/20 08:20 Pulse 81 11/13/20 08:20 Resp 16 11/13/20 08:20 BP 112/59 11/13/20 08:20 Pulse Ox 94 L 11/13/20 08:20 Intake & Output 11/12/20 11/13/20 11/13/20 18:59 06:59 18:59 Intake Total 105.103 780 0 Balance 105.103 780 0 Weight 56.699 kg 56 kg Intake: IV 100 Intake, IV Titration 5.103 Amount Heparin Sod,Pork in 0.45% 5.103 NaCl 25,000 unit In 0.45 % NaCl 1 250ml.bag @ 12 UNITS/KG/HR 6.804 mls/hr IV .Q24H [facility] Rx#: [id number] Oral 780 0 Other: # Voids 1 - Labs CBC & Chem 7: 11/13/20 07:41 11/13/20 09:02 Labs: Abnormal Lab Results - Last 24 Hours (Table) 11/12/20 11/12/20 11/12/20 Range/Units 13:00 13:00 13:00 WBC 10.9 H (3.8-10.6) k/uL RBC 3.53 L (3.80-5.40) m/uL Hgb 11.3 L (11.4-16.0) gm/dL Neutrophils # 8.4 H (1.3-7.7) k/uL Lymphocytes # (1.0-4.8) k/uL APTT 118.2 H* (22.0-30.0) sec Sodium (137-145) mmol/L Carbon Dioxide (22-30) mmol/L POC Glucose (mg/dL) (75-99) mg/dL Troponin I 39.800 H* (0.000-0.034) ng/mL 11/12/20 11/12/20 11/13/20 Range/Units 15:55 16:48 07:41 WBC 15.5 H (3.8-10.6) k/uL RBC 3.67 L (3.80-5.40) m/uL Hgb (11.4-16.0) gm/dL Neutrophils # 13.1 H (1.3-7.7) k/uL Lymphocytes # 0.9 L (1.0-4.8) k/uL APTT (22.0-30.0) sec Sodium (137-145) mmol/L Carbon Dioxide (22-30) mmol/L POC Glucose (mg/dL) 121 H (75-99) mg/dL Troponin I 38.100 H* (0.000-0.034) ng/mL 11/13/20 Range/Units 09:02 WBC (3.8-10.6) k/uL RBC (3.80-5.40) m/uL Hgb (11.4-16.0) gm/dL Neutrophils # (1.3-7.7) k/uL Lymphocytes # (1.0-4.8) k/uL APTT (22.0-30.0) sec Sodium 131 L (137-145) mmol/L Carbon Dioxide 16 L (22-30) mmol/L POC Glucose (mg/dL) (75-99) mg/dL Troponin I (0.000-0.034) ng/mL
--- NOTE | 2020-11-13 12:03 | ECHOF ---
Referral Reason:acs MEASUREMENTS -------- HEIGHT: 160.0 cm WEIGHT: 55.8 kg BP: IVSd: 0.9 cm (0.6 - 1.1) LVIDd: 3.6 cm (3.9 - 5.3) LVPWd: 1.1 cm (0.6 - 1.1) IVSs: 1.2 cm LVIDs: 2.3 cm LVPWs: 1.4 cm LAESV Index (A-L): 48.54 ml/m MV EXCURSION: 13.883 mm (> 18.000) MV EF SLOPE: 26 mm/s (70 - 150) EPSS: 0.5 cm MV E Slick: 1.23 m/s MV DecT: 297 ms MV A Slick: 1.88 m/s MV E/A Ratio: 0.65 AV maxP.88 mmHg AV meanP.24 mmHg RAP: 5.00 mmHg RVSP: 57.92 mmHg FINDINGS -------- Sinus rhythm. This was a technically adequate study. The left ventricular size is normal. Left ventricular wall thickness is normal. Overall left vent ricular systolic function is low-normal with, an EF between 50 - 55 %. Apical lateral LV wall motio n is hypokinetic. The right ventricle is normal in size. LA is severely dilated >40 ml/m2 The right atrial size is normal. There is mild aortic regurgitation. Peak/mean gradient across the Aortic Valve is 27.88mmHg / 16.24 mmHg. TAVR done Moderate mitral annular calcification present. [id number] mitral regurgitation is present. The peak and mean MV gradients are 16.60mmHg 6.42mmHg as measured by doppler. Moderate mitral sten osis. Mild tricuspid regurgitation present. There is moderate pulmonary hypertension. The right ventric ular systolic pressure, as measured by Doppler, is 57.92mmHg. The pulmonic valve was not well visualized. There is no pulmonic regurgitation present. There is no pericardial effusion. CONCLUSIONS -------- 1. Overall left ventricular systolic function is low-normal with, an EF between 50 - 55 %. 2. Apical lateral LV wall motion is hypokinetic. 3. LA is severely dilated >40 ml/m2 4. There is mild aortic regurgitation. 5. Peak/mean gradient across the Aortic Valve is 27.88mmHg / 16.24mmHg. 6. TAVR done 7. Moderate mitral annular calcification present. 8. [id number]-tfvskhyp mitral regurgitation is present. 9. The peak and mean MV gradients are 16.60mmHg 6.42mmHg as measured by doppler. 10. Moderate mitral stenosis. 11. Mild tricuspid regurgitation present. 12. There is moderate pulmonary hypertension. 13. There is no pericardial effusion. DANCER OR CHOREOGRAPHER: Ailyn Garcia RDCS
[2020-11-13] MEDS: PANTOPRAZOLE 40 MG TABLET PO SCH (13:46)
[2020-11-13] MEDS: ISOSORBIDE MONONITRATE ER 15 MG TAB PO SCH (13:46)
--- NOTE | 2020-11-13 15:27 | P.PN ---
Progress Note - Text Progress Note Date: 11/13/20 Chief Complaint: Chest pain History of presenting complaint: This is a pleasant 85-year-old patient follows with Dr. Adrian. 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 Patient had an incarcerated stomach and one week ago underwent hiatal hernia repair by in [place]. Patient was referred by Dr. Riojas, of her surgeon from [facility]. Patient also has a PEG tube to support the stomach and does not use for feeding. Patient is on a liquid diet with no lumps and bumps. Patient's had stress test in the past on a bit negative and does follow with a mechanical field engineer. Yesterday patient's is feeling tired and yesterday evening started having chest pain. It went down to both the arms. Did dizzy. This morning went to [facility]. Patient reported for acute IN with a troponin in up to 24. EKG showed peaked T waves. Cardiology was consulted. Patient seen by Dr. Velazquez and is planning to take the patient to the chemistry lab instructor. Patient has some residual chest pain. Patient's ibtdqfru-[id number]-van at the bedside. Patient recently sold a house and is in process of moving to [place]. Admitted with acute non-Q-wave IN. Started on IV heparin. Patient is taken to cardiac catheterization lab by Dr. Mast. Intraoperative, intracardiac wire could not be advanced as procedure was stopped without any complications. November 13: Patient is laying in bed this afternoon. Complaining of some chest pressure. I have ordered Imdur 50 mg. Patient feels rather tired. Review of systems: Was done for constitutional, cardiovascular, GI, pulmonary. relevant finding as above Active Medications Acetaminophen (Acetaminophen Tab 325 Mg Tab) 650 mg PO Q6HR PRN PRN Reason: Mild Pain or Fever > 100.5 Al Hydroxide/Mg Hydroxide (Mag Hydrox/Al Hydrox/Simeth 30 Ml Cup) 15 ml PO Q6HR PRN PRN Reason: Indigestion Alprazolam (Alprazolam 0.25 Mg Tab) 0.25 mg PO Q6HR PRN PRN Reason: Mild Anxiety Alprazolam (Alprazolam 0.5 Mg Tab) 0.5 mg PO Q6HR PRN PRN Reason: Moderate Anxiety Aspirin (Aspirin 81 Mg) 81 mg PO DAILY [facility] Last Admin: 11/13/20 09:01 Dose: 81 mg Documented by: Atorvastatin Calcium (Atorvastatin 40 Mg Tab) 40 mg PO DAILY [facility] Last Admin: 11/13/20 09:01 Dose: 40 mg Documented by: Calcium Carbonate/Glycine (Calcium Carbonate 500 Mg Chewable) 1,000 mg PO Q4HR PRN PRN Reason: Dyspepsia Clopidogrel Bisulfate (Clopidogrel 75 Mg Tab) 75 mg PO DAILY [facility] Last Admin: 11/13/20 09:01 Dose: 75 mg Documented by: Isosorbide Mononitrate (Isosorbide Mononitrate Er 15 Mg Tab) 15 mg PO DAILY [facility] Last Admin: 11/13/20 13:46 Dose: 15 mg Documented by: Levothyroxine Sodium (Levothyroxine 88 Mcg Tab) 88 mcg PO DAILY@0630 [facility] Last Admin: 11/13/20 06:16 Dose: 88 mcg Documented by: Melatonin (Melatonin 3 Mg Tablet) 3 mg PO HS PRN PRN Reason: Insomnia Metoprolol Tartrate (Metoprolol Tartrate 25 Mg Tab) 25 mg PO BID [facility] Last Admin: 11/13/20 09:01 Dose: 25 mg Documented by: Miscellaneous Information (Rx Info: Iv Contrast Was Given 1 Each Misc) 1 each MISCELLANE DAILY PRN PRN Reason: Per Protocol Stop: 11/14/20 18:57 Naloxone HCl (Naloxone 0.4 Mg/Ml 1 Ml Vial) 0.2 mg IV Q2M PRN PRN Reason: Opioid Reversal Nitroglycerin (Nitroglycerin Sl Tabs 0.4 Mg Tab) 0.4 mg SUBLINGUAL Q5M PRN PRN Reason: Chest Pain Ondansetron HCl (Ondansetron 4 Mg/2 Ml Vial) 4 mg IVP Q8HR PRN PRN Reason: Nausea And Vomiting Pantoprazole Sodium (Pantoprazole 40 Mg Tablet) 40 mg PO W/SUPPER [facility] Last Admin: 11/13/20 13:46 Dose: 40 mg Documented by: Past medical history to include: Hypertension, hypothyroid, osteoarthritis, GERD Past surgical history to include: Adenoidectomy, aortic valve replacement with a bovine valve, hiatal hernia repair Social history: No smoking. Alcohol rarely. Currently living with her son and zuicruqg-ce-ifa. Physical examination: VITAL SIGNS: 98, 75, 16, 93/51, 93% on room air GENERAL: Laying in bed, awake, tired. EYES: Pupils equal. Conjunctiva normal. NECK: JVD not raised; masses not palpable. HEART: First and second heart sounds are normal; no edema. LUNGS: Respiratory rate normal; clear to auscultation. ABDOMEN: Soft, nontender, liver spleen not palpable, no masses palpable, PEG tube. PSYCH: Alert and oriented x3; mood and affect normal. MUSCULOSKELETAL: Evidence of OA especially in the hands INVESTIGATIONS, reviewed in the clinical context: November 13: White count 15.5 hemoglobin 11.5 platelets 354 potassium 4.5 crit 0.86 sodium 131 White count 10.9 hemoglobin 11.3 platelets 308 Troponin I 39.8, 38 Lab work from [facility]: Sodium 133, potassium 3.8, BUN 15, creatinine 1, AST 170, AST 35, bilirubin 0.7, WBC 9.1, hemoglobin 9.4, EKG tracing personally reviewed by me-prominent peaked T waves Chest x-ray film personally reviewed by me-bilateral bases haziness Assessment and plan: -Acute non-ST elevation myocardial infarction Underwent cardiac catheterization -CAD [Cardiac catheterization: Intracardiac Guidewire could not be advanced, hence procedure was abandoned]. Aspirin 81 mg, Lipitor 40 mg, Lopressor 25 mg twice a day -Post IN angina: New diagnosis Add Imdur 50 mg by mouth daily. -IV heparin monitoring: Discontinued -Essential hypertension Lopressor 25 mg twice a day -Hypothyroid Synthroid 88 g a day -GERD Prilosec 40 mg with supper -Hyperlipidemia Lipitor 40 mg daily - repair of incarcerated stomach and has a PEG tube to hold the stomach intra- abdominally [procedure done 1 week prior to admission.] clear liquid diet for the same. Care was discussed with the patient . Continue current medications. Add Imdur 50 mg daily. Continue liquid diet.
--- NOTE | 2020-11-13 22:14 | P.GSCN ---
History of Present Illness Consult date: 11/13/20 History of present illness: CHIEF COMPLAINT: Hiatal hernia repair HISTORY OF PRESENT ILLNESS: The patient is a 85 year old female who is less than 2 weeks out from an intrathoracic paraesophageal hiatal hernia repair at [facility]. Patient had gone home. She recently developed weakness. She was brought back to the hospital with elevated troponins over 24 consistent with acute myocardial infarction. As a result recent surgery at [facility] for paraesophageal hiatal hernia, general surgery is consulted. She denies any abdominal pain. She is tolerating liquids. PAST MEDICAL HISTORY: See list and reviewed PAST SURGICAL HISTORY: See list and reviewed MEDICATIONS: See list and reviewed ALLERGIES: See list and reviewed SOCIAL HISTORY: See list and reviewed FAMILY HISTORY: See list and reviewed REVIEW OF ORGAN SYSTEMS: CONSTITUTIONAL: No fevers or chills. EYES: Denies any trouble with vision. Wears glasses. HEENT: No difficulties with hearing. No nosebleeds. No difficulty swallowing. RESPIRATORY: Denies pneumonia. Denies any troubles with breathing or dyspnea on exertion. CARDIOVASCULAR: Has atrial fibrillation. Current acute myocardial infarction. Has cardiac valve replacement. GASTROINTESTINAL: Denies fatty food intolerance. Denies change in bowel habits and gas bloat. Has gastroesophageal reflux disease. Recent paraesophageal hiatal hernia repair. GENITOURINARY: Denies any blood in urine or increased urinary frequency. NEUROLOGICAL: Denies any numbness or tingling along the distal extremities. No seizure disorders or headaches. MUSCULOSKELETAL: Has back pain, stiffness or joint arthritis. SKIN: No current skin cancer. No rash. PSYCHIATRIC: Denies current depression or suicidal thoughts. ENDOCRINE: Has hypothyroidism. Denies any blood sugar glucose intolerance. HEME/LYMPHATIC: Denies any lumps and bumps around the neck. No recent deep venous thrombosis. ALLERGY/IMMUNOLOGY: No immunoglobulin therapy. No immune deficiencies. BREAST: Denies current breast lumps, pain or nipple discharge. PHYSICAL EXAM: VITALS: Reviewed CONSTITUTIONAL: Well developed and in no acute distress. EYES: Conjuctivae without sclera icterus. Extraocular movements grossly intact. HEAD, EARS, NOSE, THROAT: Moist buccal mucosa. Head is atraumatic, normocephalic. Hears conversational speech. No nasal drainage. NECK: Supple. No JV distention. No thyroidomegaly. RESPIRATORY: Non-labored respirations and equal bilateral excursions. No gross wheezes. CARDIOVASCULAR: 2+ radial pulses. ABDOMEN: No peritonitis. LYMPH: No neck lymphadenopathy. MUSCULOSKELETAL: Nail and fingers with good capillary refill. SKIN: Warm and well perfused with good skin turgor. NEUROLOGIC: Cranial nerves II through XII grossly intact. No focal or lateralizing signs. PSYCH: Appropriate affect. Alert and oriented to person, place and time. Displays appropriate insight. CLINCAL LABS: Reviewed. WBC elevated from over 10,000-15,000. Troponins elevated over 39 on admission. EKG: Inferior infarction with left atrial enlargement. RADIOLOGY: Report reviewed with left pleural effusion. ASSESSMENT: 1. Acute myocardial infarction 2. Recent paraesophageal hiatal hernia repair PLAN: 1. With recent surgery, recommend Yaneth liquid diet without carbonated beverages or straws. 2. Management of acute myocardial infarction per cardiology. Thank you for this kind consultation. Past Medical History Past Medical History: Atrial Fibrillation, GERD/Reflux, Hyperlipidemia, Thyroid Disorder History of Any Multi-Drug Resistant Organisms: None Reported Past Surgical History: Adenoidectomy, Cardiac Valve Replacement, Heart Catheterization, Hernia Repair Additional Past Surgical History / Comment(s): heart valve Past Anesthesia/Blood Transfusion Reactions: No Reported Reaction Past Psychological History: No Psychological Hx Reported Smoking Status: Never smoker Past Alcohol Use History: Rare Past Drug Use History: None Reported - Past Family History Mother Additional Family Medical History / Comment(s): Lupus Father Family Medical History: Coronary Artery Disease (CAD) Medications and Allergies Home Medications Medication Instructions Recorded Confirmed Type Aspirin [Adult Low Dose Aspirin EC] 81 mg PO DAILY 09/19/20 11/12/20 History Levothyroxine Sodium [Synthroid] 88 mcg PO DAILY 09/19/20 11/12/20 History Metoprolol Tartrate [Lopressor] 25 mg PO BID 09/19/20 11/12/20 History Multivit-Min/FA/Lycopen/Lutein 1 tab PO DAILY 09/19/20 11/12/20 History [Centrum Silver Tablet] [place]-3 Fatty Acids/Fish Oil [Fish 1 cap PO DAILY 09/19/20 11/12/20 History Oil 1,000 mg Softgel] Omeprazole [PriLOSEC] 40 mg PO W/SUPPER 09/19/20 11/12/20 History Ubidecarenone [Co Q-10] 100 mg PO DAILY 09/19/20 11/12/20 History gemfibroziL [Lopid] 600 mg PO AC-BID 09/19/20 11/12/20 History Allergies Allergy/AdvReac Type Severity Reaction Status Date / Time adhesive tape Allergy Rash/Hives Verified 11/12/20 12:52 doxycycline Allergy Unknown Verified 11/12/20 12:52 Sulfa (Sulfonamide Allergy Unknown Verified 11/12/20 12:52 Antibiotics) Surgical - Exam Vital Signs Temp Pulse Resp BP Pulse Ox 98.7 F 66 18 128/61 95 11/12/20 11:58 11/12/20 11:58 11/12/20 11:58 11/12/20 11:58 11/12/20 11:58 Results - Labs 11/13/20 07:41 11/13/20 09:02 Abnormal Lab Results - Last 24 Hours (Table) 11/13/20 11/13/20 Range/Units 07:41 09:02 WBC 15.5 H (3.8-10.6) k/uL RBC 3.67 L (3.80-5.40) m/uL Neutrophils # 13.1 H (1.3-7.7) k/uL Lymphocytes # 0.9 L (1.0-4.8) k/uL Sodium 131 L (137-145) mmol/L Carbon Dioxide 16 L (22-30) mmol/L Diabetes panel 11/13/20 Range/Units 09:02 Sodium 131 L (137-145) mmol/L Potassium 4.5 (3.5-5.1) mmol/L Chloride 105 (98-107) mmol/L Carbon Dioxide 16 L (22-30) mmol/L BUN 13 (7-17) mg/dL Creatinine 0.86 (0.52-1.04) mg/dL Glucose 90 (74-99) mg/dL Calcium 8.8 (8.4-10.2) mg/dL Calcium panel 11/13/20 Range/Units 09:02 Calcium 8.8 (8.4-10.2) mg/dL Pituitary panel 11/13/20 Range/Units 09:02 Sodium 131 L (137-145) mmol/L Potassium 4.5 (3.5-5.1) mmol/L Chloride 105 (98-107) mmol/L Carbon Dioxide 16 L (22-30) mmol/L BUN 13 (7-17) mg/dL Creatinine 0.86 (0.52-1.04) mg/dL Glucose 90 (74-99) mg/dL Calcium 8.8 (8.4-10.2) mg/dL Adrenal panel 11/13/20 Range/Units 09:02 Sodium 131 L (137-145) mmol/L Potassium 4.5 (3.5-5.1) mmol/L Chloride 105 (98-107) mmol/L Carbon Dioxide 16 L (22-30) mmol/L BUN 13 (7-17) mg/dL Creatinine 0.86 (0.52-1.04) mg/dL Glucose 90 (74-99) mg/dL Calcium 8.8 (8.4-10.2) mg/dL Assessment and Plan (1) Paraesophageal hiatal hernia Current Visit: Yes Status: Acute Code(s): K44.9 - DIAPHRAGMATIC HERNIA WITHOUT OBSTRUCTION OR GANGRENE SNOMED Code(s): 3439903 (2) Atrial fibrillation Current Visit: Yes Status: Acute Code(s): I48.91 - UNSPECIFIED ATRIAL FIBRILLATION SNOMED Code(s): 05190280 (3) Non-ST elevation myocardial infarction (NSTEMI) Current Visit: Yes Status: Acute Code(s): I21.4 - NON-ST ELEVATION (NSTEMI) MYOCARDIAL INFARCTION SNOMED Code(s): 52844952
[2020-11-14 01:07] VITALS: RESP 16
[2020-11-14] MEDS: LEVOTHYROXINE 88 MCG TAB PO SCH (06:22)
[2020-11-14] MEDS: ATORVASTATIN 40 MG TAB PO SCH (09:03)
[2020-11-14] MEDS: ISOSORBIDE MONONITRATE ER 15 MG TAB PO SCH (09:03)
[2020-11-14] MEDS: CLOPIDOGREL 75 MG TAB PO SCH (09:03)
[2020-11-14] MEDS: METOPROLOL TARTRATE 25 MG TAB PO SCH ×2 (09:03→20:36)
[2020-11-14] MEDS: ASPIRIN 81 MG PO SCH (09:03)
[2020-11-14 09:18] LABS: Chol/HDL Ratio 4.65; LDL Cholesterol,Calculated 116.8 mg/dL (0.0-131.0); VLDL Calculation 29.2 mg/dL (5.00-40.00)
--- NOTE | 2020-11-14 09:52 | P.PN ---
Subjective This is a pleasant 85 year old female past medical history significant for recent bowel resection, hypertension, TAVR, dyslipidemia and hypothyroidism. She underwent cardiac catheterization yesterday with Dr. Velazquez revealing distal occlusion of the PDA. No PCI performed. She is seen and examined laying flat in bed in no acute distress. She denies chest pain, shortness of breath, dizziness or palpitations. She complains of feeling nauseated with poor appetite. Blood pressure 112/59 heart rate 81 afebrile and maintaining oxygen saturation on room air. Laboratory data reviewed, WBC 15.5, hgb 11.5, plt 354, sodium 131, potassium 4.5, creatinine 0.86. Peak troponin 39.8. Telemetry tracings indicate SR with no arrhythmia. 11/14/2020 Pt seen and examiend sitting up in bed in no acute distress. STill not really eating. Tolerating water. No chest pain or shortness of breath. Echo reviewed, EF 50-55%, apical lateral hypokinesia noted, s/p TAVR with mean gradient 16 mmHg. D-dimer 7.5. Vital signs stable. Tolerating increased activity. GENERAL: Well-appearing, well-nourished and in no acute distress. NECK: Supple without JVD or thyromegaly. LUNGS: Breath sounds clear to auscultation bilaterally. Respiration equal and unlabored. No wheezes, rales or rhonchi. HEART: Regular rate and rhythm with systolic ejection murmur at the base, no rubs or gallops. S1 and S2 heard. EXTREMITIES: Normal range of motion, no edema. No clubbing or cyanosis. Peripheral pulses intact. ASSESSMENT NSTEMI Valvular heart disease s/p TAVR Hypertension Dyslipidemia PLAN Continue dual anti-platelet therapy. Check CTA to rule out PE. Continue to increase activity and encourage oral intake. Further recommendations to follow based on clinical course. Nurse Practitioner note has been reviewed, I agree with a documented findings and plan of care. Patient was seen and examined. Objective - Vital Signs Vital signs: Vital Signs Temp 98.4 F 11/14/20 07:20 Pulse 66 11/14/20 07:20 Resp 16 11/14/20 07:20 BP 101/55 11/14/20 07:20 Pulse Ox 96 11/14/20 07:20 Intake & Output 11/13/20 11/14/20 11/14/20 18:59 06:59 18:59 Intake Total 967 250 Output Total 500 Balance 967 -250 Weight 55.9 kg Intake: IV 30 10 Invasive Line 1 20 10 Invasive Line 2 10 Oral 937 240 Output: Urine 500 Other: # Voids 1 1 1 - Labs CBC & Chem 7: 11/13/20 07:41 11/13/20 09:02 Labs: Abnormal Lab Results - Last 24 Hours (Table) 11/14/20 11/14/20 Range/Units 07:23 07:23 D-Dimer 7.52 H (<0.60) mg/L FEU C-Reactive Protein 25.7 H (<1.0) mg/dL
--- NOTE | 2020-11-14 10:45 | P.PN ---
<HayleyEileen - Last Filed: 11/14/20 10:38> Subjective Progress Note Date: 11/14/20 CHIEF COMPLAINT: Hiatal hernia repair HISTORY OF PRESENT ILLNESS: The patient is a 85 year old female who is less than 2 weeks out from an intrathoracic paraesophageal hiatal hernia repair at [facility]. Patient is the hospital with an NSTEMI. She is followed by cardiology service. Surgical service is following due to her recent intrathoracic paraesophageal hiatal hernia repair. Patient has been had very minimal oral intake. She reports that when she drinks it sits heavy and epigastric area. She's currently been receiving full liquid diet. And is unable to eat oatmeal. She has been having some nausea. She was able to drink some milk. And a few sips of watered down ensure. Patient denies any further chest pain. She did have elevated d-dimer CTA of the chest ordered by cardiology service. Afebrile. PHYSICAL EXAM: VITAL SIGNS: Reviewed GENERAL: Well-developed in no acute distress. HEENT: No sclera icterus. Extraocular movements grossly intact. Moist buccal mucosa. Head is atraumatic, normocephalic. Hears conversational speech. No nasal drainage. NECK: Supple without lymphadenopathy. CHEST: Non-labored respirations and equal bilateral excursions. CARDIOVASCULAR: Palpable 2+ radial pulses. ABDOMEN: Soft. Nondistended. Nontender. Incision sites clean dry and intact. Has PEG tube in place. MUSCULOSKELETAL: No clubbing or cyanosis. NEUROLOGIC: No focal or lateralizing signs. Cranial nerves II through XII grossly intact. PSYCH: Appropriate affect. Alert and oriented to person, place and time. SKIN: Well perfused. Good skin turgor. ASSESSMENT: 1. Acute myocardial infarction 2. Recent paraesophageal hiatal hernia repair PLAN: -Change diet to Yaneth clear liquids without carbonated beverages or straws -Management of acute myocardial infarction per cardiology Physician Metal Ceiling Builder note has been reviewed by physician. Signing provider agrees with the documented findings, assessment, and plan of care. Objective - Vital Signs Vital signs: Vital Signs Temp 98.4 F 11/14/20 07:20 Pulse 66 11/14/20 07:20 Resp 16 11/14/20 07:20 BP 101/55 11/14/20 07:20 Pulse Ox 96 11/14/20 07:20 Intake & Output 11/13/20 11/14/20 11/14/20 18:59 06:59 18:59 Intake Total 967 250 Output Total 500 Balance 967 -250 Weight 55.9 kg Intake: IV 30 10 Invasive Line 1 20 10 Invasive Line 2 10 Oral 937 240 Output: Urine 500 Other: # Voids 1 1 1 - Labs CBC & Chem 7: 11/13/20 07:41 11/13/20 09:02 Labs: Abnormal Lab Results - Last 24 Hours (Table) 11/14/20 11/14/20 Range/Units 07:23 07:23 D-Dimer 7.52 H (<0.60) mg/L FEU C-Reactive Protein 25.7 H (<1.0) mg/dL <Dominga Villar - Last Filed: 11/14/20 17:39> Subjective Patient seen and evaluated. CHIEF COMPLAINT: Hiatal hernia repair HISTORY OF PRESENT ILLNESS: The patient is a 85 year old female status post repair of large intrathoracic paraesophageal hiatal hernia by cardiothoracic surgeon in [facility] less than 1 week ago whi developed acute myocardial infarction. She reports tolerating liquids. She does have a PEG tube use as a positional bolster. Her son and family at bedside. She is voiding spontaneously. REVIEW OF ORGAN SYSTEMS: No moderate or shortness of breath. No fevers or chills. No nausea or vomiting. PHYSICAL EXAM: VITALS: Reviewed CONSTITUTIONAL: Well developed and in no acute distress. EYES: Conjuctivae without sclera icterus. Extraocular movements grossly intact. HEAD, EARS, NOSE, THROAT: Moist buccal mucosa. Head is atraumatic, normocephalic. Hears conversational speech. No nasal drainage. NECK: Supple. No JV distention. No thyroidomegaly. RESPIRATORY: Non-labored respirations and equal bilateral excursions. No gross wheezes. CARDIOVASCULAR: Irregular rate. Irregular rhythm. ABDOMEN: Incisions clean dry and intact. PEG tube with appropriate tenderness. No cellulitis or infection. MUSCULOSKELETAL: No clubbing, cyanosis, or edema. SKIN: Warm and well perfused with good skin turgor. NEUROLOGIC: Cranial nerves II through XII grossly intact. No focal or lateralizing signs. PSYCH: Appropriate affect. Alert and oriented to person, place and time. Displays appropriate insight. CLINCAL LABS: Reviewed. WBC elevated from over 10,000-15,000. Troponins elevated over 39 on admission. IMAGES: CT chest independently reviewed demonstrating complete reduction of large intrathoracic paraesophageal hernia. This is my independent interpretation. ASSESSMENT: 1. Acute myocardial infarction 2. Recent paraesophageal hiatal hernia repair PLAN: 1. May have bariatric full liquid diet without straws or carbonated beverages including appropriate shakes. 2. Recommend follow-up as outpatient with her operating surgeon once medically stable for discharge. Objective - Vital Signs Vital signs: Vital Signs Temp 98.2 F 11/14/20 12:30 Pulse 70 11/14/20 12:30 Resp 16 11/14/20 12:30 BP 106/55 11/14/20 12:30 Pulse Ox 94 L 11/14/20 12:30 Intake & Output 11/13/20 11/14/20 11/14/20 18:59 06:59 18:59 Intake Total 967 497 Output Total 900 Balance 967 -403 Weight 55.9 kg Intake: IV 30 20 Invasive Line 1 20 20 Invasive Line 2 10 Oral 937 477 Output: Urine 900 Other: # Voids 1 1 1 - Labs CBC & Chem 7: 11/14/20 16:28 11/13/20 09:02 Labs: Abnormal Lab Results - Last 24 Hours (Table) 11/14/20 11/14/20 11/14/20 Range/Units 07:23 07:23 16:28 RBC 3.26 L (3.80-5.40) m/uL Hgb 10.5 L (11.4-16.0) gm/dL Hct 31.4 L (34.0-46.0) % Neutrophils # 8.1 H (1.3-7.7) k/uL D-Dimer 7.52 H (<0.60) mg/L FEU C-Reactive Protein 25.7 H (<1.0) mg/dL Assessment and Plan (1) Paraesophageal hiatal hernia Current Visit: Yes Status: Acute Code(s): K44.9 - DIAPHRAGMATIC HERNIA WITHOUT OBSTRUCTION OR GANGRENE SNOMED Code(s): 9435580 (2) Atrial fibrillation Current Visit: Yes Status: Acute Code(s): I48.91 - UNSPECIFIED ATRIAL FIBRILLATION SNOMED Code(s): 20962202 (3) Non-ST elevation myocardial infarction (NSTEMI) Current Visit: Yes Status: Acute Code(s): I21.4 - NON-ST ELEVATION (NSTEMI) MYOCARDIAL INFARCTION SNOMED Code(s): 11798581
--- NOTE | 2020-11-14 11:31 | CT ---
"EXAMINATION TYPE: CT angio chest DATE OF EXAM: 11/14/2020 11:19 AM COMPARISON: Chest x-ray 2 days ago. HISTORY: elevated d-dimer CT DLP: 196.2 mGycm Automated exposure control for dose reduction was used. CONTRAST: CTA scan of the thorax is performed with IV Contrast, patient injected with 60 mL of Isovue 370, pulm onary embolism protocol. MIP images are created and reviewed. FINDINGS: LUNGS: There are now small to moderate size left greater than right pleural effusions with associated compressive atelectasis. Mild bilateral interstitial edema. No suspicious focal consolidation. MEDIASTINUM: There is satisfactory enhancement of the pulmonary artery and its branches, there is no CT evidence for pulmonary embolism. Satisfactory enhancement of the thoracic aorta without aneurysm or dissection. Stent graft at the aortic root noted. There are prominent bilateral hilar lymph nodes. No greater than 1 cm mediastinal lymph nodes No pericardial effusion is seen. Heart size upper limi ts of normal. OTHER: Foci of free air below diaphragm. Exaggerated thoracic kyphosis. Slight scoliotic curvature. PEG tube below diaphragm on localizer. IMPRESSION: 1. No CT evidence for acute pulmonary embolism. 2. Small to moderate size left greater than right pleural effusions and mild interstitial edema sugge sting fluid overload state versus CHF exacerbation. Correlate clinically. 3. Foci of free air may be related to recent intra-abdominal surgery or PEG tube placement. Correlate clinically. A [place] level critical message alert has been initiated for Zack Ruiz MD via the [employer] 36 0 | Critical Results System on 11/14/2020 11:29 AM. This message alert has been sent to Zack Ruiz MD via the preferences provided by the clinician for the receipt of Radiology Critical Findings. [facility] [id number]."
--- NOTE | 2020-11-14 15:04 | P.PN ---
Progress Note - Text Progress Note Date: 11/14/20 Chief Complaint: Chest pain History of presenting complaint: This is a pleasant 85-year-old patient follows with Dr. Adrian. 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 Patient had an incarcerated stomach and one week ago underwent hiatal hernia repair by in [place]. [facility]. Patient was referred by Dr. Riojas, of her surgeon from [facility]. Patient also has a PEG tube to support the stomach and does not use for feeding. Patient is on a liquid diet with no lumps and bumps. Patient's had stress test in the past on a bit negative and does follow with a wildlife veterinarian. Yesterday patient's is feeling tired and yesterday evening started having chest pain. It went down to both the arms. Did dizzy. This morning went to [facility]. Patient reported for acute TX with a troponin in up to 24. EKG showed peaked T waves. Cardiology was consulted. Patient seen by Dr. Velazquez and is planning to take the patient to the industrial laborer. Patient has some residual chest pain. Patient's [id number] at the bedside. Patient recently sold a house and is in process of moving to [place]. Admitted with acute non-Q-wave TX. Started on IV heparin. Patient is taken to cardiac catheterization lab by Dr. Mast. Intraoperative, intracardiac wire could not be advanced as procedure was stopped without any complications. November 13: Patient is laying in bed this afternoon. Complaining of some chest pressure. I have ordered Imdur 50 mg. Patient feels rather tired. November 14: Sitting at the edge of the bed. Feeling better. Up to the bathroom. Last diet. Son present. Long talk was held with the patient and the family. Questions answered. Increase activity in the hallways tolerated. Patient to maintain on bariatric liquid diet. Seen by Dr. Riojas. Review of systems: Was done for constitutional, cardiovascular, GI, pulmonary. relevant finding as above Active Medications Acetaminophen (Acetaminophen Tab 325 Mg Tab) 650 mg PO Q6HR PRN PRN Reason: Mild Pain or Fever > 100.5 Al Hydroxide/Mg Hydroxide (Mag Hydrox/Al Hydrox/Simeth 30 Ml Cup) 15 ml PO Q6HR PRN PRN Reason: Indigestion Alprazolam (Alprazolam 0.25 Mg Tab) 0.25 mg PO Q6HR PRN PRN Reason: Mild Anxiety Alprazolam (Alprazolam 0.5 Mg Tab) 0.5 mg PO Q6HR PRN PRN Reason: Moderate Anxiety Aspirin (Aspirin 81 Mg) 81 mg PO DAILY [facility] Last Admin: 11/14/20 09:03 Dose: 81 mg Documented by: Atorvastatin Calcium (Atorvastatin 40 Mg Tab) 40 mg PO DAILY [facility] Last Admin: 11/14/20 09:03 Dose: 40 mg Documented by: Calcium Carbonate/Glycine (Calcium Carbonate 500 Mg Chewable) 1,000 mg PO Q4HR PRN PRN Reason: Dyspepsia Clopidogrel Bisulfate (Clopidogrel 75 Mg Tab) 75 mg PO DAILY [facility] Last Admin: 11/14/20 09:03 Dose: 75 mg Documented by: Isosorbide Mononitrate (Isosorbide Mononitrate Er 15 Mg Tab) 15 mg PO DAILY [facility] Last Admin: 11/14/20 09:03 Dose: 15 mg Documented by: Levothyroxine Sodium (Levothyroxine 88 Mcg Tab) 88 mcg PO DAILY@0630 [facility] Last Admin: 11/14/20 06:22 Dose: 88 mcg Documented by: Melatonin (Melatonin 3 Mg Tablet) 3 mg PO HS PRN PRN Reason: Insomnia Metoprolol Tartrate (Metoprolol Tartrate 25 Mg Tab) 25 mg PO BID [facility] Last Admin: 11/14/20 09:03 Dose: 25 mg Documented by: Miscellaneous Information (Rx Info: Iv Contrast Was Given 1 Each Misc) 1 each MISCELLANE DAILY PRN PRN Reason: Per Protocol Stop: 11/14/20 18:57 Naloxone HCl (Naloxone 0.4 Mg/Ml 1 Ml Vial) 0.2 mg IV Q2M PRN PRN Reason: Opioid Reversal Nitroglycerin (Nitroglycerin Sl Tabs 0.4 Mg Tab) 0.4 mg SUBLINGUAL Q5M PRN PRN Reason: Chest Pain Ondansetron HCl (Ondansetron 4 Mg/2 Ml Vial) 4 mg IVP Q8HR PRN PRN Reason: Nausea And Vomiting Pantoprazole Sodium (Pantoprazole 40 Mg Tablet) 40 mg PO W/SUPPER [facility] Last Admin: 11/13/20 13:46 Dose: 40 mg Documented by: Past medical history to include: Hypertension, hypothyroid, osteoarthritis, GERD Past surgical history to include: Adenoidectomy, aortic valve replacement with a bovine valve, hiatal hernia repair Social history: No smoking. Alcohol rarely. Currently living with her son and [id number]. Physical examination: VITAL SIGNS: 98.2, 70, 16, 106/55, 94% room air GENERAL: Sitting of the edge the bed, comfortable EYES: Pupils equal. Conjunctiva normal. NECK: JVD not raised; masses not palpable. HEART: First and second heart sounds are normal; no edema. LUNGS: Respiratory rate normal; clear to auscultation. ABDOMEN: Soft, nontender, liver spleen not palpable, no masses palpable, PEG tube. PSYCH: Alert and oriented x3; mood and affect normal. MUSCULOSKELETAL: Evidence of OA especially in the hands INVESTIGATIONS, reviewed in the clinical context: CT chest: Negative for PE. November 13: White count 15.5 hemoglobin 11.5 platelets 354 potassium 4.5 crit 0.86 sodium 131 White count 10.9 hemoglobin 11.3 platelets 308 Troponin I 39.8, 38 Lab work from [facility]: Sodium 133, potassium 3.8, BUN 15, creatinine 1, AST 170, AST 35, bilirubin 0.7, WBC 9.1, hemoglobin 9.4, EKG tracing personally reviewed by me-prominent peaked T waves Chest x-ray film personally reviewed by me-bilateral bases haziness Assessment and plan: -Acute non-ST elevation myocardial infarction Underwent cardiac catheterization-no angioplasty or stent. -CAD [Cardiac catheterization: Intracardiac Guidewire could not be advanced, hence procedure was abandoned]. Aspirin 81 mg, Lipitor 40 mg, Lopressor 25 mg twice a day -Post TX angina: Improved Imdur 15 mg daily -IV heparin monitoring: Discontinued -Essential hypertension Lopressor 25 mg twice a day -Hypothyroid Synthroid 88 g a day -GERD Prilosec 40 mg with supper -Hyperlipidemia Lipitor 40 mg daily - repair of incarcerated stomach and has a PEG tube to hold the stomach intra-abdominally [procedure done 1 week prior to admission.] clear liquid diet for the same. Discussed with patient and family. Questions answered. Increase activity. Hopefully home tomorrow. Total time spent today about 45 minutes with over 25 minutes of discussion.
[2020-11-14] MEDS ORDERED: AMIODARONE 360 MG in DEXTROSE 5% IN WATER 200 ML IV ONE ×2 (15:54)
[2020-11-14] MEDS ORDERED: DEXTROSE 5% IN WATER 100 ML with AMIODARONE 150 MG IV ONE (15:54)
[2020-11-14] MEDS ORDERED: HEPARIN SODIUM 1,000 UN/ML (10ML VL) IV ONE (16:11)
[2020-11-14] MEDS ORDERED: HEPARIN SODIUM 1,000 UN/ML (10ML VL) IV PRN (16:11)
[2020-11-14] MEDS ORDERED: HEPARIN SOD,PORK IN 0.45% NACL 25,000 UNIT in 0.45% NACL 1 250ML.BAG IV SCH (16:15)
[2020-11-14 16:40] LABS: Basophils % (A) 0 %; Eosinophils # (A) 0.4 k/uL (0-0.7); Eosinophils % (A) 4 %; HCT 31.4 % (34.0-46.0); HGB 10.5 gm/dL (11.4-16.0); Lymphocytes % (A) 10 %; MCH 32.4 pg (25.0-35.0); MCHC 33.5 g/dL (31.0-37.0); MCV 96.5 fL (80.0-100.0); Mean Platelet Volume 7.9; Monocytes # (A) 0.6 k/uL (0-1.0); Monocytes % (A) 6 %; Neutrophils # (A) 8.1 k/uL (1.3-7.7); Neutrophils % (A) 79 %; Platelet Count 358 k/uL (150-450); RBC 3.26 m/uL (3.80-5.40); RDW 12.4 % (11.5-15.5); WBC 10.2 k/uL (3.8-10.6)
[2020-11-14] MEDS: PANTOPRAZOLE 40 MG TABLET PO SCH (16:44)
[2020-11-14 16:50] LABS: Prothrombin Time 10.9 sec (9.0-12.0)
[2020-11-14] MEDS ORDERED: AMIODARONE 450 MG in DEXTROSE 5% IN WATER 250 ML IV SCH ×2 (22:00)
[2020-11-15] MEDS: LEVOTHYROXINE 88 MCG TAB PO SCH (05:42)
[2020-11-15] MEDS: ISOSORBIDE MONONITRATE ER 15 MG TAB PO SCH (08:43)
[2020-11-15] MEDS: ATORVASTATIN 40 MG TAB PO SCH (08:43)
[2020-11-15] MEDS: ASPIRIN 81 MG PO SCH (08:43)
[2020-11-15] MEDS: METOPROLOL TARTRATE 25 MG TAB PO SCH ×2 (08:43→20:37)
[2020-11-15 09:04] LABS: Basophils % (A) 0 %; Eosinophils # (A) 0.4 k/uL (0-0.7); Eosinophils % (A) 4 %; HCT 30.4 % (34.0-46.0); HGB 10.3 gm/dL (11.4-16.0); Lymphocytes # (A) 0.9 k/uL (1.0-4.8); Lymphocytes % (A) 9 %; MCH 32.1 pg (25.0-35.0); MCHC 33.9 g/dL (31.0-37.0); MCV 94.9 fL (80.0-100.0); Mean Platelet Volume 8.2; Monocytes # (A) 0.5 k/uL (0-1.0); Monocytes % (A) 6 %; Neutrophils # (A) 7.4 k/uL (1.3-7.7); Neutrophils % (A) 79 %; Platelet Count 426 k/uL (150-450); RDW 12.8 % (11.5-15.5); WBC 9.4 k/uL (3.8-10.6)
[2020-11-15 09:12] LABS: Partial Thromboplastin Time 42.9 sec (22.0-30.0); Prothrombin Time 10.7 sec (9.0-12.0)
[2020-11-15] MEDS: PANTOPRAZOLE 40 MG TABLET PO SCH (09:53)
--- NOTE | 2020-11-15 12:04 | P.PN ---
Subjective Progress Note Date: 11/15/20 Principal diagnosis: Hiatal hernia Patient denies pain today. Having mild dysphagia with liquid intake. White blood cell count normal at 9.4. She is afebrile. Objective - Vital Signs Vital signs: Vital Signs Temp 98.2 F 11/15/20 04:00 Pulse 66 11/15/20 04:00 Resp 16 11/15/20 04:00 BP 91/53 11/15/20 04:00 Pulse Ox 96 11/15/20 04:00 Intake & Output 11/14/20 11/15/20 11/15/20 18:59 06:59 18:59 Intake Total 527 188.3 597.055 Output Total 900 Balance -373 188.3 597.055 Weight 57.2 kg Intake: IV 50 20 Invasive Line 1 30 10 Invasive Line 3 20 10 Intake, IV Titration 168.3 117.055 Amount Amiodarone 360 mg In 100 Dextrose 5% in Water 200 ml @ 1 MG/MIN 33.333 mls/ hr IV .Q6H ONE Rx#: [id number] Amiodarone 450 mg In 8 Dextrose 5% in Water 250 ml @ 0.5 MG/MIN 16.667 mls/hr IV .Q15H [facility] Rx#: [id number] Heparin Sod,Pork in 0.45% 60.3 117.055 NaCl 25,000 unit In 0.45 % NaCl 1 250ml.bag @ 12 UNITS/KG/HR 6.708 mls/hr IV .Q24H [facility] Rx#: [id number] Oral [id number] Output: Urine 900 Other: # Voids 1 2 1 # Bowel Movements 1 - Exam Abdomen: Soft, nondistended, no appreciable tenderness, incisions clean and dry - Labs CBC & Chem 7: 11/15/20 08:09 11/13/20 09:02 Labs: Abnormal Lab Results - Last 24 Hours (Table) 11/14/20 11/14/20 11/15/20 Range/Units 16:28 22:48 08:09 RBC 3.26 L 3.20 L (3.80-5.40) m/uL Hgb 10.5 L 10.3 L (11.4-16.0) gm/dL Hct 31.4 L 30.4 L (34.0-46.0) % Neutrophils # 8.1 H (1.3-7.7) k/uL Lymphocytes # 0.9 L (1.0-4.8) k/uL APTT 48.5 H (22.0-30.0) sec 11/15/20 Range/Units 08:09 RBC (3.80-5.40) m/uL Hgb (11.4-16.0) gm/dL Hct (34.0-46.0) % Neutrophils # (1.3-7.7) k/uL Lymphocytes # (1.0-4.8) k/uL APTT 42.9 H (22.0-30.0) sec Assessment and Plan (1) Paraesophageal hiatal hernia Narrative/Plan: Continue liquid diet. Continue cardiac support and evaluation. Will follow. Current Visit: Yes Status: Acute Code(s): K44.9 - DIAPHRAGMATIC HERNIA WITHOUT OBSTRUCTION OR GANGRENE SNOMED Code(s): 8447484
[2020-11-15] MEDS: AMIODARONE 200 MG TAB PO SCH ×3 (12:31→20:52)
[2020-11-15] MEDS: APIXABAN 2.5 MG TABLET PO SCH ×2 (12:31→20:37)
--- NOTE | 2020-11-15 14:06 | P.PN ---
Subjective Progress Note Date: 11/15/20 This is a pleasant 85 year old female past medical history significant for recent bowel resection, hypertension, TAVR, dyslipidemia and hypothyroidism. She underwent cardiac catheterization yesterday with Dr. Velazquez revealing distal occlusion of the PDA. No PCI performed. She is seen and examined laying flat in bed in no acute distress. She denies chest pain, shortness of breath, dizziness or palpitations. She complains of feeling nauseated with poor appetite. Blood pressure 112/59 heart rate 81 afebrile and maintaining oxygen saturation on room air. Laboratory data reviewed, WBC 15.5, hgb 11.5, plt 354, sodium 131, potassium 4.5, creatinine 0.86. Peak troponin 39.8. Telemetry tracings indicate SR with no arrhythmia. 11/14/2020 Pt seen and examiend sitting up in bed in no acute distress. STill not really eating. Tolerating water. No chest pain or shortness of breath. Echo reviewed, E F 50-55%, apical lateral hypokinesia noted, s/p TAVR with mean gradient 16 mmHg. D-dimer 7.5. Vital signs stable. Tolerating increased activity. 11/14/2020 Yesterday, patient went into atrial fibrillation and was started on amiodarone drip. Patient subsequently converted to a sinus rhythm with heart rate in the 60s and 70s, blood pressure 101/61, pulse ox 96% on room air. We will plan to transition patient to amiodarone 200 mg 3 times daily and start patient on eliquis 2.5 mg twice daily. CTA of the chest done yesterday revealed no acute pulmonary embolism. Small to moderate size left greater than right pleural effusions and mild interstitial edema suggesting fluid overload state versus heart failure exacerbation. Foci of free air May be related to recent intra- abdominal surgery a PEG tube placement. GENERAL: Well-appearing, well-nourished and in no acute distress. NECK: Supple without JVD or thyromegaly. LUNGS: Breath sounds clear to auscultation bilaterally. Respiration equal and unlabored. No wheezes, rales or rhonchi. HEART: Regular rate and rhythm with systolic ejection murmur at the base, no rubs or gallops. S1 and S2 heard. EXTREMITIES: Normal range of motion, no edema. No clubbing or cyanosis. Peripheral pulses intact. ASSESSMENT NSTEMI Valvular heart disease s/p TAVR Paroxysmal atrial fibrillation, new onset Hypertension Dyslipidemia PLAN Continue dual anti-platelet therapy. Continue Lopressor 25 mg twice daily and transition IV amiodarone to oral at 200 mg 3 times daily, eliquis 2.5 mg twice daily New prescriptions have been sent to patient's pharmacy Continue to increase activity and encourage oral intake. Further recommendations to follow based on clinical course. Nurse Practitioner note has been reviewed, I agree with a documented findings an d plan of care. Patient was seen and examined. Objective - Vital Signs Vital signs: Vital Signs Temp 98.2 F 11/15/20 04:00 Pulse 66 11/15/20 04:00 Resp 16 11/15/20 04:00 BP 91/53 11/15/20 04:00 Pulse Ox 96 11/15/20 04:00 Intake & Output 11/14/20 11/15/20 11/15/20 18:59 06:59 18:59 Intake Total 527 188.3 597.055 Output Total 900 Balance -373 188.3 597.055 Weight 57.2 kg Intake: IV 50 20 Invasive Line 1 30 10 Invasive Line 3 20 10 Intake, IV Titration 168.3 117.055 Amount Amiodarone 360 mg In 100 Dextrose 5% in Water 200 ml @ 1 MG/MIN 33.333 mls/ hr IV .Q6H [facility] Rx#: [id number] Amiodarone 450 mg In 8 Dextrose 5% in Water 250 ml @ 0.5 MG/MIN 16.667 mls/hr IV .Q15H [facility] Rx#: [id number] Heparin Sod,Pork in 0.45% 60.3 117.055 NaCl 25,000 unit In 0.45 % NaCl 1 250ml.bag @ 12 UNITS/KG/HR 6.708 mls/hr IV .Q24H [facility] Rx#: [id number] Oral [id number] Output: Urine 900 Other: # Voids 1 2 1 # Bowel Movements 1 - Labs CBC & Chem 7: 11/15/20 08:09 11/13/20 09:02 Labs: Abnormal Lab Results - Last 24 Hours (Table) 11/14/20 11/14/20 11/15/20 Range/Units 16:28 22:48 08:09 RBC 3.26 L 3.20 L (3.80-5.40) m/uL Hgb 10.5 L 10.3 L (11.4-16.0) gm/dL Hct 31.4 L 30.4 L (34.0-46.0) % Neutrophils # 8.1 H (1.3-7.7) k/uL Lymphocytes # 0.9 L (1.0-4.8) k/uL APTT 48.5 H (22.0-30.0) sec 11/15/20 Range/Units 08:09 RBC (3.80-5.40) m/uL Hgb (11.4-16.0) gm/dL Hct (34.0-46.0) % Neutrophils # (1.3-7.7) k/uL Lymphocytes # (1.0-4.8) k/uL APTT 42.9 H (22.0-30.0) sec
--- NOTE | 2020-11-15 19:46 | PN ---
PROGRESS NOTE DATE OF SERVICE: 11/15/2020 This 85-year-old woman who was admitted with acute zlg-MA-sbwqbtd-elevation myocardial infarction is being closely monitored. No chest pain. No palpitations. No fever. Cardiology and Surgery are following the patient closely. PHYSICAL EXAMINATION: Alert and oriented x3. Pulse is 67, blood pressure 123/66, respirations 16, temperature 97 degrees, pulse ox 98% on room air. HEENT: Conjunctivae normal. Oral mucosa moist. NECK: No jugular venous distention. No lymph node enlargement. CARDIOVASCULAR: S1, S2, muffled. No S3, no S4, RESPIRATORY: Diminished breath sounds at the bases. A few scattered rhonchi. ABDOMEN: Soft, nontender. LEGS: No edema, no swelling. NERVOUS SYSTEM: No focal deficits. LABS: WBC 9.3, hemoglobin 10.3. D-dimer 7.52. Chest CTA was done yesterday which showed possible free air below the diaphragm, PEG tube noted. ASSESSMENT: 1. Acute nii-OK-ktrjxuz-elevation myocardial infarction. 2. History of coronary artery disease. 3. Post infarction angina. 4. Hypertension. 5. Hypothyroidism. 6. History of gastroesophageal reflux disease. 7. Hyperlipidemia. 8. Repair of incarcerated hernia. RECOMMENDATIONS AND DISCUSSION: I recommend to continue current management, continue symptomatic treatment. Repeat labs. Closely follow with multiple consultants. Guarded prognosis. Further recommendations to follow. MMODL / IJN: [id number] /
[2020-11-16] MEDS: LEVOTHYROXINE 88 MCG TAB PO SCH (05:40)
[2020-11-16] MEDS: ASPIRIN 81 MG PO SCH (08:19)
[2020-11-16] MEDS: ISOSORBIDE MONONITRATE ER 15 MG TAB PO SCH (08:19)
[2020-11-16] MEDS: APIXABAN 2.5 MG TABLET PO SCH ×2 (08:19→20:22)
[2020-11-16] MEDS: METOPROLOL TARTRATE 25 MG TAB PO SCH ×2 (08:20→20:22)
[2020-11-16] MEDS: ATORVASTATIN 40 MG TAB PO SCH (08:20)
[2020-11-16] MEDS: AMIODARONE 200 MG TAB PO SCH ×3 (08:20→21:10)
[2020-11-16 08:50] LABS: Basophils % (A) 0 %; Eosinophils # (A) 0.5 k/uL (0-0.7); Eosinophils % (A) 5 %; HGB 11.1 gm/dL (11.4-16.0); Lymphocytes # (A) 0.9 k/uL (1.0-4.8); Lymphocytes % (A) 10 %; MCH 31.6 pg (25.0-35.0); MCHC 32.5 g/dL (31.0-37.0); MCV 97.4 fL (80.0-100.0); Mean Platelet Volume 8.1; Monocytes # (A) 0.3 k/uL (0-1.0); Monocytes % (A) 4 %; Neutrophils % (A) 80 %; Platelet Count 488 k/uL (150-450); RBC 3.49 m/uL (3.80-5.40); RDW 12.5 % (11.5-15.5); WBC 8.8 k/uL (3.8-10.6)
[2020-11-16 09:06] LABS: Potassium 3.5 mmol/L (3.5-5.1)
--- NOTE | 2020-11-16 11:06 | P.PN ---
Subjective Progress Note Date: 11/16/20 Principal diagnosis: Hiatal hernia Patient denies abdominal pain today. Says she is tolerating her liquid diet without difficulties. No chest pain. Denies shortness of breath. Objective - Vital Signs Vital signs: Vital Signs Temp 98.6 F 11/16/20 07:10 Pulse 96 11/16/20 07:10 Resp 16 11/16/20 07:10 BP 96/60 11/16/20 07:10 Pulse Ox 96 11/16/20 07:10 Intake & Output 11/15/20 11/16/20 11/16/20 18:59 06:59 18:59 Intake Total 2496.055 10 468 Balance 2496.055 10 468 Weight 57.4 kg Intake: IV 30 10 10 Invasive Line 1 10 Invasive Line 3 20 10 10 Intake, IV Titration 388.055 Amount Amiodarone 450 mg In 250 Dextrose 5% in Water 250 ml @ 0.5 MG/MIN 16.667 mls/hr IV .Q15H [facility] Rx#: [id number] Heparin Sod,Pork in 0.45% 138.055 NaCl 25,000 unit In 0.45 % NaCl 1 250ml.bag @ 12 UNITS/KG/HR 6.708 mls/hr IV .Q24H [facility] Rx#: [id number] Oral [id number] Other: # Voids 3 2 # Bowel Movements 4 - Exam Abdomen: Soft, nontender, nondistended - Labs CBC & Chem 7: 11/16/20 08:02 11/16/20 08:02 Labs: Abnormal Lab Results - Last 24 Hours (Table) 11/16/20 11/16/20 Range/Units 08:02 08:02 RBC 3.49 L (3.80-5.40) m/uL Hgb 11.1 L (11.4-16.0) gm/dL Plt Count 488 H (150-450) k/uL Lymphocytes # 0.9 L (1.0-4.8) k/uL Sodium 133 L (137-145) mmol/L Carbon Dioxide 21 L (22-30) mmol/L Glucose 133 H (74-99) mg/dL Assessment and Plan (1) Paraesophageal hiatal hernia Narrative/Plan: Patient doing better at this time. Continue cardiac workup. Continue liquid diet. Ambulate. Current Visit: Yes Status: Acute Code(s): K44.9 - DIAPHRAGMATIC HERNIA WITHOUT OBSTRUCTION OR GANGRENE SNOMED Code(s): 3428701
--- NOTE | 2020-11-16 12:56 | P.PN ---
Subjective Progress Note Date: 11/16/20 This is a pleasant 85 year old female past medical history significant for recent bowel resection, hypertension, TAVR, dyslipidemia and hypothyroidism. She underwent cardiac catheterization yesterday with Dr. Velazquez revealing distal occlusion of the PDA. No PCI performed. She is seen and examined laying flat in bed in no acute distress. She denies chest pain, shortness of breath, dizziness or palpitations. She complains of feeling nauseated with poor appetite. Blood pressure 112/59 heart rate 81 afebrile and maintaining oxygen saturation on room air. Laboratory data reviewed, WBC 15.5, hgb 11.5, plt 354, sodium 131, potassium 4.5, creatinine 0.86. Peak troponin 39.8. Telemetry tracings indicate SR with no arrhythmia. 11/14/2020 Pt seen and examiend sitting up in bed in no acute distress. STill not really eating. Tolerating water. No chest pain or shortness of breath. Echo reviewed, E F 50-55%, apical lateral hypokinesia noted, s/p TAVR with mean gradient 16 mmHg. D-dimer 7.5. Vital signs stable. Tolerating increased activity. 11/15/2020 Yesterday, patient went into atrial fibrillation and was started on amiodarone drip. Patient subsequently converted to a sinus rhythm with heart rate in the 60s and 70s, blood pressure 101/61, pulse ox 96% on room air. We will plan to transition patient to amiodarone 200 mg 3 times daily and start patient on eliquis 2.5 mg twice daily. CTA of the chest done yesterday revealed no acute pulmonary embolism. Small to moderate size left greater than right pleural effusions and mild interstitial edema suggesting fluid overload state versus heart failure exacerbation. Foci of free air May be related to recent intra- abdominal surgery a PEG tube placement. 11/16/2020 Patient has been maintained on amiodarone 200 mg 3 times daily and heart rate has remained a sinus rhythm in the 60s and 70s. Patient is also on Lopressor 25 mg twice daily. Patient denies any new complaints. No chest pain or shortness of breath. Patient has been cleared for discharge from cardiology. PHYSICAL EXAM GENERAL: Well-appearing, well-nourished and in no acute distress. NECK: Supple without JVD or thyromegaly. LUNGS: Breath sounds clear to auscultation bilaterally. Respiration equal and unlabored. No wheezes, rales or rhonchi. HEART: Regular rate and rhythm with systolic ejection murmur at the base, no rubs or gallops. S1 and S2 heard. EXTREMITIES: Normal range of motion, no edema. No clubbing or cyanosis. Peripheral pulses intact. ASSESSMENT NSTEMI Valvular heart disease s/p TAVR Paroxysmal atrial fibrillation, new onset Hypertension Dyslipidemia PLAN Continue dual anti-platelet therapy. Continue Lopressor 25 mg twice daily and amiodarone 200 mg 3 times daily with taper, eliquis 2.5 mg twice daily New prescriptions have been sent to patient's pharmacy Continue to increase activity and encourage oral intake. Further recommendations to follow based on clinical course. Nurse Practitioner note has been reviewed, I agree with a documented findings and plan of care. Patient was seen and examined. Objective - Vital Signs Vital signs: Vital Signs Temp 98.6 F 11/16/20 07:10 Pulse 96 11/16/20 07:10 Resp 16 11/16/20 07:10 BP 96/60 11/16/20 07:10 Pulse Ox 96 11/16/20 07:10 Intake & Output 11/15/20 11/16/20 11/16/20 18:59 06:59 18:59 Intake Total 2496.055 10 468 Balance 2496.055 10 468 Weight 57.4 kg Intake: IV 30 10 10 Invasive Line 1 10 Invasive Line 3 20 10 10 Intake, IV Titration 388.055 Amount Amiodarone 450 mg In 250 Dextrose 5% in Water 250 ml @ 0.5 MG/MIN 16.667 mls/hr IV .Q15H [facility] Rx#: [id number] Heparin Sod,Pork in 0.45% 138.055 NaCl 25,000 unit In 0.45 % NaCl 1 250ml.bag @ 12 UNITS/KG/HR 6.708 mls/hr IV .Q24H [facility] Rx#: [id number] Oral [id number] Other: # Voids 3 2 # Bowel Movements 4 - Labs CBC & Chem 7: 11/16/20 08:02 11/16/20 08:02 Labs: Abnormal Lab Results - Last 24 Hours (Table) 11/16/20 11/16/20 Range/Units 08:02 08:02 RBC 3.49 L (3.80-5.40) m/uL Hgb 11.1 L (11.4-16.0) gm/dL Plt Count 488 H (150-450) k/uL Lymphocytes # 0.9 L (1.0-4.8) k/uL Sodium 133 L (137-145) mmol/L Carbon Dioxide 21 L (22-30) mmol/L Glucose 133 H (74-99) mg/dL
[2020-11-16] MEDS: PANTOPRAZOLE 40 MG TABLET PO SCH (15:23)
--- NOTE | 2020-11-16 20:38 | PN ---
PROGRESS NOTE DATE OF SERVICE: 11/16/2020 This 85-year-old woman who was admitted with acute hel-JX-gmuydkg-elevation myocardial infarction is being closely monitored. No chest pain. No palpitations. No fever. Hemoglobin 11.1, sodium is 133. EXAM: Alert and oriented x3. Pulse is 70, blood pressure 97/60, respirations 16, temperature 97.7, pulse ox 98% on room air. HEENT: Conjunctivae normal. Oral mucosa moist. NECK: No jugular venous distention. No lymph node enlargement. CARDIOVASCULAR: S1, S2, muffled. No S3, no S4, RESPIRATORY: Diminished breath sounds at the bases. ABDOMEN: Soft, nontender. LEGS: No edema, no swelling. NERVOUS SYSTEM: Diffusely weak. LABS: WBC 8.2, hemoglobin 11.0. Other labs are noted. ASSESSMENT: 1. Acute mwk-DO-dbtvrow-elevation myocardial infarction. 2. History of coronary artery disease. 3. Post infarction angina. 4. Hypertension. 5. Hypothyroidism. 6. History of gastroesophageal reflux disease. 7. Hyperlipidemia. 8. Repair of incarcerated hernia. RECOMMENDATIONS: Recommend to continue current management and continue symptomatic treatment. Continue with antiplatelet agents. Continue with beta blockers. Closely follow. Continue the apixaban. Prognosis guarded because of multiple complex medical issues. Further recommendations to follow. MMODL / IJN: [id number] /
[2020-11-17] MEDS: LEVOTHYROXINE 88 MCG TAB PO SCH (06:17)
[2020-11-17 08:28] VITALS: BP 100/62; PULSE 67; TEMP 98
[2020-11-17] MEDS: ATORVASTATIN 40 MG TAB PO SCH (09:12)
[2020-11-17] MEDS: APIXABAN 2.5 MG TABLET PO SCH (09:12)
[2020-11-17] MEDS: ASPIRIN 81 MG PO SCH (09:12)
[2020-11-17] MEDS: AMIODARONE 200 MG TAB PO SCH ×2 (09:12→16:51)
[2020-11-17] MEDS: ISOSORBIDE MONONITRATE ER 15 MG TAB PO SCH (09:13)
[2020-11-17] MEDS: METOPROLOL TARTRATE 25 MG TAB PO SCH (09:13)
--- NOTE | 2020-11-17 11:15 | P.PN ---
Subjective This is a pleasant 85 year old female past medical history significant for recent bowel resection, hypertension, TAVR, dyslipidemia and hypothyroidism. She underwent cardiac catheterization yesterday with Dr. Velazquez revealing distal occlusion of the PDA. No PCI performed. She is seen and examined laying flat in bed in no acute distress. She denies chest pain, shortness of breath, dizziness or palpitations. She complains of feeling nauseated with poor appetite. Blood pressure 112/59 heart rate 81 afebrile and maintaining oxygen saturation on room air. Laboratory data reviewed, WBC 15.5, hgb 11.5, plt 354, sodium 131, potassium 4.5, creatinine 0.86. Peak troponin 39.8. Telemetry tracings indicate SR with no arrhythmia. 11/17/2020 Patient seen and examined sitting up in no acute distress. She continues to maintain sinus rhythm. She has no symptoms of chest pain or shortness of breath. Blood pressure 100/62 heart rate 67 afebrile maintaining oxygen saturation on room air. Currently maintained on Eliquis 2.5 mg twice a day, aspirin 81 mg daily, amiodarone 200 mg 3 times a day, atorvastatin 40 mg daily, Imdur 15 mg daily and metoprolol 25 mg twice a day. GENERAL: Well-appearing, well-nourished and in no acute distress. NECK: Supple without JVD or thyromegaly. LUNGS: Breath sounds clear to auscultation bilaterally. Respiration equal and unlabored. No wheezes, rales or rhonchi. HEART: Regular rate and rhythm with systolic ejection murmur at the base, no rubs or gallops. S1 and S2 heard. EXTREMITIES: Normal range of motion, no edema. No clubbing or cyanosis. Peripheral pulses intact. ASSESSMENT NSTEMI Valvular heart disease s/p TAVR Hypertension Dyslipidemia PLAN Clinically stable on current medical regimen. Follow-up on discharge with Dr. Velazquez. Nurse Practitioner note has been reviewed, I agree with a documented findings and plan of care. Patient was seen and examined. Objective - Vital Signs Vital signs: Vital Signs Temp 98 F 11/17/20 07:54 Pulse 67 11/17/20 07:54 Resp 16 11/17/20 07:54 BP 100/62 11/17/20 07:54 Pulse Ox 98 11/17/20 07:54 Intake & Output 09/11/17/20 11/17/20 18:59 06:59 18:59 Intake Total 1776 550 Balance 1776 550 Intake: IV 20 10 Invasive Line 3 20 10 Oral [id number] Other: # Voids 1 3 - Labs CBC & Chem 7: 11/16/20 08:02 11/16/20 08:02
--- NOTE | 2020-11-17 12:27 | P.PN ---
Subjective Progress Note Date: 11/17/20 CHIEF COMPLAINT: Hiatal hernia repair HISTORY OF PRESENT ILLNESS: The patient is a 85 year old female who is less than 2 weeks out from an intrathoracic paraesophageal hiatal hernia repair at [facility]. Patient is the hospital with an NSTEMI. She is followed by cardiology service. Surgical service is following due to her recent intrathoracic paraesophageal hiatal hernia repair. Patient complains of some minimal incisional pain. She reports that her pain is controlled. She denies any nausea or vomiting. She is having flatus. Afebrile. She is tolerating the Yaneth clear liquids. PHYSICAL EXAM: VITAL SIGNS: Reviewed GENERAL: Well-developed in no acute distress. HEENT: No sclera icterus. Extraocular movements grossly intact. Moist buccal mucosa. Head is atraumatic, normocephalic. Hears conversational speech. No nasal drainage. NECK: Supple without lymphadenopathy. CHEST: Non-labored respirations and equal bilateral excursions. CARDIOVASCULAR: Palpable 2+ radial pulses. ABDOMEN: Soft. Nondistended. Nontender. Incision sites clean dry and intact. Has PEG tube in place. MUSCULOSKELETAL: No clubbing or cyanosis. NEUROLOGIC: No focal or lateralizing signs. Cranial nerves II through XII grossly intact. PSYCH: Appropriate affect. Alert and oriented to person, place and time. SKIN: Well perfused. Good skin turgor. ASSESSMENT: 1. Acute myocardial infarction 2. Recent paraesophageal hiatal hernia repair PLAN: -Patient can be discharge from surgical standpoint when medically cleared -Patient follow-up with her [facility] surgeon as scheduled -continue Yaneth clear liquids without carbonated beverages or straws -Management of acute myocardial infarction per cardiology -Surgical service will sign off. Please call with any questions or concerns. Physician Motor Vehicle License Clerk note has been reviewed by physician. Signing provider agrees with the documented findings, assessment, and plan of care. Objective - Vital Signs Vital signs: Vital Signs Temp 98 F 11/17/20 07:54 Pulse 67 11/17/20 07:54 Resp 16 11/17/20 07:54 BP 100/62 11/17/20 07:54 Pulse Ox 98 11/17/20 07:54 Intake & Output 11/16/20 11/17/20 11/17/20 18:59 06:59 18:59 Intake Total 1776 550 490 Balance 1776 550 490 Intake: IV 20 10 10 Invasive Line 3 20 10 10 Oral [id number] Other: # Voids 1 3 - Labs CBC & Chem 7: 11/16/20 08:02 11/16/20 08:02
[2020-11-17] MEDS: PANTOPRAZOLE 40 MG TABLET PO SCH (16:51)
--- NOTE | 2020-11-17 18:22 | P.DS ---
Providers Date of admission: 11/12/20 13:02 Expected date of discharge: 11/17/20 Attending physician: Zack Ruiz Consults: 11/12/20 13:01 Consult Physician Stat Consulting Provider: Kain Velazquez Consult Reason/Comments: N STEMI Do you want consulting provider notified?: Already Contacted 11/13/20 15:05 Consult Physician Routine Consulting Provider: Dominga Villar Consult Reason/Comments: recent herina repair, decreased PO intake Do you want consulting provider notified?: Yes Primary care physician: [facility] Course: Chief Complaint: Chest pain History of presenting complaint: This is a pleasant 85-year-old patient follows with Dr. Adrian. 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 Patient had an incarcerated stomach and one week ago underwent hiatal hernia repair by in [facility]. Patient was referred by Dr. Riojas, of her surgeon from [facility]. Patient also has a PEG tube to support the stomach and does not use for feeding. Patient is on a liquid diet with no lumps and bumps. Patient's had stress test in the past on a bit negative and does follow with a technologist development. Yesterday patient's is feeling tired and yesterday evening started having chest pain. It went down to both the arms. Did dizzy. This morning went to [facility]. Patient reported for acute GA with a troponin in up to 24. EKG showed peaked T waves. Cardiology was consulted. Patient seen by Dr. Velazquez and is planning to take the patient to the cath lab manager. Patient has some residual chest pain. Patient's [id number] at the bedside. Patient recently sold a house and is in process of moving to [place]. Admitted with acute non-Q-wave GA. Started on IV heparin. Patient is taken to cardiac catheterization lab by Dr. Mast. Intraoperative, intracardiac wire could not be advanced as procedure was stopped without any complications. Patient was managed medically. Oral increases added. Activities gradually increase. Also seen by Dr. Riojas from general surgery. Maintain a liquid diet. November 17: Doing well. Up and about in the hallway. No chest pain or shortness of breath. Care was discussed in detail with the patient. Medications were discussed. Patient follows with cardiology. Discussion and discharge planning more than 35 minutes Consultation: Dr. Riojas from general surgery Dr. 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 Alcohol rarely. Currently living with her son and [id number]. Physical examination: VITAL SIGNS: 98, 67, 16, 100/62, 98% room air GENERAL: Sitting up in a chair EYES: Pupils equal. Conjunctiva normal. NECK: JVD not raised; masses not palpable. HEART: First and second heart sounds are normal; no edema. LUNGS: Respiratory rate normal; clear to auscultation. ABDOMEN: Soft, nontender, liver spleen not palpable, no masses palpable, PEG tube. PSYCH: Alert and oriented x3; mood and affect normal. MUSCULOSKELETAL: Evidence of OA especially in the hands INVESTIGATIONS, reviewed in the clinical context: November 16: White count 8.8 hemoglobin 11.[address] chest: Negative for PE. November 13: White count 15.5 hemoglobin 11.5 platelets 354 potassium 4.5 crit 0.86 sodium 131 White count 10.9 hemoglobin 11.3 platelets 308 Troponin I 39.8, 38 Lab work from [facility]: Sodium 133, potassium 3.8, BUN 15, creatinine 1, AST 170, AST 35, bilirubin 0.7, WBC 9.1, hemoglobin 9.4, EKG tracing personally reviewed by me-prominent peaked T waves Chest x-ray film personally reviewed by me-bilateral bases haziness Assessment and plan: -Acute non-ST elevation myocardial infarction Underwent cardiac catheterization-no angioplasty or stent. -CAD [Cardiac catheterization: Intracardiac Guidewire could not be advanced, hence procedure was abandoned]. Aspirin 81 mg, Lipitor 40 mg, Lopressor 25 mg twice a day -Post GA angina: Result Imdur 15 mg daily -IV heparin monitoring: Discontinued -Essential hypertension Lopressor 25 mg twice a day -Hypothyroid Synthroid 88 g a day -GERD Prilosec 40 mg with supper -Hyperlipidemia Lipitor 40 mg daily - repair of incarcerated stomach and has a PEG tube to hold the stomach intra- abdominally [procedure done 1 week prior to admission.] clear liquid diet for the same. Patient to follow-up with her surgeon. Disposition: Home Plan - Discharge Summary Discharge Rx Participant: Yes New Discharge Prescriptions: New Atorvastatin [Lipitor] 40 mg PO DAILY #30 tablet Nitroglycerin Sl Tabs [Nitrostat] 0.4 mg SUBLINGUAL Q5M PRN #30 tab PRN Reason: Chest Pain Amiodarone [Cordarone] 200 mg PO TID #51 tab Apixaban [Eliquis] 2.5 mg PO BID #60 tab Isosorbide Mononitrate ER [Imdur] 15 mg PO DAILY #30 tab Melatonin 3 mg PO HS PRN tablet PRN Reason: Insomnia Hydrocortisone [Anusol-Hc] 1 applic RECTAL DAILY #30 gm Continue Multivit-Min/FA/Lycopen/Lutein [Centrum Silver Tablet] 1 tab PO DAILY Metoprolol Tartrate [Lopressor] 25 mg PO BID Aspirin [Adult Low Dose Aspirin EC] 81 mg PO DAILY Omeprazole [PriLOSEC] 40 mg PO W/SUPPER Levothyroxine Sodium [Synthroid] 88 mcg PO DAILY Discontinued gemfibroziL [Lopid] 600 mg PO AC-BID [place]-3 Fatty Acids/Fish Oil [Fish Oil 1,000 mg Softgel] 1 cap PO DAILY No Action Ubidecarenone [Co Q-10] 100 mg PO DAILY Discharge Medication List Aspirin [Adult Low Dose Aspirin EC] 81 mg PO DAILY 09/19/20 [History] Levothyroxine Sodium [Synthroid] 88 mcg PO DAILY 09/19/20 [History] Metoprolol Tartrate [Lopressor] 25 mg PO BID 09/19/20 [History] Multivit-Min/FA/Lycopen/Lutein [Centrum Silver Tablet] 1 tab PO DAILY 09/19/20 [History] Omeprazole [PriLOSEC] 40 mg PO W/SUPPER 09/19/20 [History] Ubidecarenone [Co Q-10] 100 mg PO DAILY 09/19/20 [History] Amiodarone [Cordarone] 200 mg PO TID #51 tab 11/15/20 [Rx] Apixaban [Eliquis] 2.5 mg PO BID #60 tab 11/15/20 [Rx] Atorvastatin [Lipitor] 40 mg PO DAILY #30 tablet 11/15/20 [Rx] Isosorbide Mononitrate ER [Imdur] 15 mg PO DAILY #30 tab 11/15/20 [Rx] Hydrocortisone [Anusol-Hc] 1 applic RECTAL DAILY #30 gm 11/17/20 [Rx] Melatonin 3 mg PO HS PRN tablet 11/17/20 [Rx] Nitroglycerin Sl Tabs [Nitrostat] 0.4 mg SUBLINGUAL Q5M PRN #30 tab 11/17/20 [Rx] Follow up Appointment(s)/Referral(s): Kain Velazquez MD [STAFF PHYSICIAN] - 1 Week (office will call with follow up appointment date and time) Ayden Adrian MD [Primary Care Provider] - 11/21/20 2:00 pm Patient Instructions/Handouts: *Surgery [facility] - After Heart Catheterization - [employer] Instructions, Heart Attack (DC), A-fib (Atrial Fibrillation) (ED), Heart Healthy Diet (GEN), Low-Sodium Diet (ED), Blood Thinners (ED) Activity/Diet/Wound Care/Special Instructions: nati $492/month Discharge Disposition: HOME SELF-CARE
== END 2020-11-17 17:06 | disposition home or self-care (01) | DRG 281 ==
LOC: EC 11:55 → 3SCARD 13:02
PROVIDERS: ADMIT Hospitalist; ATTEND Hospitalist
PROC: B2111ZZ Fluoroscopy of Multiple Coronary Arteries using Low Osmolar Contrast (ICD-10-PCS; principal; 2020-11-12 13:10)
DX: I21.4 Non-ST elevation (NSTEMI) myocardial infarction (principal); I23.7 Postinfarction angina; J90 Pleural effusion, not elsewhere classified; E03.9 Hypothyroidism, unspecified; E78.5 Hyperlipidemia, unspecified; I10 Essential (primary) hypertension; I25.10 Atherosclerotic heart disease of native coronary artery without angina pectoris; I25.2 Old myocardial infarction; I48.0 Paroxysmal atrial fibrillation; K21.9 Gastro-esophageal reflux disease without esophagitis; K44.9 Diaphragmatic hernia without obstruction or gangrene; R13.10 Dysphagia, unspecified; Z53.09 Procedure and treatment not carried out because of other contraindication; Z79.01 Long term (current) use of anticoagulants; Z79.82 Long term (current) use of aspirin; Z79.890 Hormone replacement therapy; Z79.899 Other long term (current) drug therapy; Z82.49 Family history of ischemic heart disease and other diseases of the circulatory system; Z93.1 Gastrostomy status; Z95.2 Presence of prosthetic heart valve
CPT/HCPCS: 71045; 71275; 80048; 80061; 83605; 84484; 85025; 85379; 85610; 85730; 86140; 87324; 93005; 93306; 93458; 99285

== ENCOUNTER 2020-12-12 14:02 | Inpatient (IN) | payer MEDICARE, BC ==
--- NOTE | 2020-12-12 14:28 | ED ---
General Adult HPI - General Chief complaint: Shortness of Breath Stated complaint: DONNA Time Seen by Provider: 12/12/20 14:08 Source: patient, EMS, old records reviewed (Review of records from [facility]) Mode of arrival: ambulatory Limitations: no limitations - History of Present Illness Initial comments: Patient is a pleasant 85-year-old female presenting to the emergency Department as a transfer from [place]. Patient went there for cough and short of breath. Patient found to have low pulse ox of 85%. Patient had questionable infiltrate left lower lobe been diagnosed with pneumonia. Patient was started on cefepime. Covert test was negative. Patient states symptoms have been for several couple of days. No fevers. No leg pain or leg swelling. Patient did have recent heart catheterization here however no stent was placed. - Related Data Home Medications Medication Instructions Recorded Confirmed Aspirin [Adult Low Dose Aspirin EC] 81 mg PO DAILY 09/19/20 11/12/20 Levothyroxine Sodium [Synthroid] 88 mcg PO DAILY 09/19/20 11/12/20 Metoprolol Tartrate [Lopressor] 25 mg PO BID 09/19/20 11/12/20 Multivit-Min/FA/Lycopen/Lutein 1 tab PO DAILY 09/19/20 11/12/20 [Centrum Silver Tablet] Omeprazole [PriLOSEC] 40 mg PO W/SUPPER 09/19/20 11/12/20 Ubidecarenone [Co Q-10] 100 mg PO DAILY 09/19/20 11/12/20 Previous Rx's Medication Instructions Recorded Amiodarone [Cordarone] 200 mg PO TID #51 tab 11/15/20 Apixaban [Eliquis] 2.5 mg PO BID #60 tab 11/15/20 Atorvastatin [Lipitor] 40 mg PO DAILY #30 tablet 11/15/20 Isosorbide Mononitrate ER [Imdur] 15 mg PO DAILY #30 tab 11/15/20 Hydrocortisone [Anusol-Hc] 1 applic RECTAL DAILY #30 gm 11/17/20 Melatonin 3 mg PO HS PRN tablet 11/17/20 Nitroglycerin Sl Tabs [Nitrostat] 0.4 mg SUBLINGUAL Q5M PRN #30 tab 11/17/20 Allergies Allergy/AdvReac Type Severity Reaction Status Date / Time adhesive tape Allergy Rash/Hives Verified 11/12/20 12:52 doxycycline Allergy Unknown Verified 11/12/20 12:52 Sulfa (Sulfonamide Allergy Unknown Verified 11/12/20 12:52 Antibiotics) Review of Systems ROS Statement: Those systems with pertinent positive or pertinent negative responses have been documented in the HPI. ROS Other: All systems not noted in ROS Statement are negative. Constitutional: Denies: chills Eyes: Denies: eye pain ENT: Denies: ear pain Respiratory: Reports: cough, dyspnea Cardiovascular: Denies: chest pain Endocrine: Reports: fatigue Gastrointestinal: Denies: abdominal pain Genitourinary: Denies: dysuria Musculoskeletal: Denies: back pain Skin: Denies: rash Neurological: Denies: weakness Past Medical History Past Medical History: Atrial Fibrillation, GERD/Reflux, Hyperlipidemia, Myocardial Infarction ([place]), Thyroid Disorder History of Any Multi-Drug Resistant Organisms: None Reported Past Surgical History: Adenoidectomy, Cardiac Valve Replacement, Heart Catheterization, Hernia Repair Additional Past Surgical History / Comment(s): heart valve Past Anesthesia/Blood Transfusion Reactions: No Reported Reaction Past Psychological History: No Psychological Hx Reported Smoking Status: Never smoker Past Alcohol Use History: Rare Past Drug Use History: None Reported - Past Family History Mother Additional Family Medical History / Comment(s): Lupus Father Family Medical History: Coronary Artery Disease (CAD) General Exam Limitations: no limitations General appearance: alert, in no apparent distress Head exam: Present: normocephalic Eye exam: Present: normal appearance Neck exam: Present: normal inspection Respiratory exam: Present: normal lung sounds bilaterally Cardiovascular Exam: Present: regular rate, normal rhythm GI/Abdominal exam: Present: soft. Absent: tenderness Extremities exam: Present: normal inspection. Absent: pedal edema, calf tenderness Neurological exam: Present: alert Psychiatric exam: Present: normal affect, normal mood Skin exam: Present: normal color Course Vital Signs 12/12/20 14:09 Temperature 98.9 F Pulse Rate 63 Respiratory 18 Rate Blood Pressure 108/57 O2 Sat by Pulse 97 Oximetry Medical Decision Making - Medical Decision Making Records reviewed. Chest x-ray images were not sent and therefore will be reordered. Case was discussed with Dr. López, who will admit For Dr. Ruiz, who admits for Dr. Adrian. Disposition Clinical Impression: Community acquired pneumonia Disposition: ADMITTED IP TO THIS HOSP Is patient prescribed a controlled substance at d/c from ED?: No Referrals: Ayden Adrian MD [Primary Care Provider] - 1-2 days Decision Time: 14:28
[2020-12-12] MEDS ORDERED: PNEUMONIA PROTOCOL UTILIZED 1 EACH MISC PO PRN (14:29)
[2020-12-12 15:02] LABS: Basophils % (A) 0 %; Eosinophils # (A) 0.5 k/uL (0-0.7); Eosinophils % (A) 5 %; HCT 34.4 % (34.0-46.0); HGB 11.3 gm/dL (11.4-16.0); Lymphocytes # (A) 1.4 k/uL (1.0-4.8); Lymphocytes % (A) 14 %; MCH 32.1 pg (25.0-35.0); MCHC 32.9 g/dL (31.0-37.0); MCV 97.5 fL (80.0-100.0); Mean Platelet Volume 8.5; Monocytes # (A) 0.7 k/uL (0-1.0); Monocytes % (A) 7 %; Neutrophils # (A) 6.9 k/uL (1.3-7.7); Neutrophils % (A) 71 %; Platelet Count 230 k/uL (150-450); RBC 3.53 m/uL (3.80-5.40); RDW 13.9 % (11.5-15.5); WBC 9.6 k/uL (3.8-10.6)
[2020-12-12 15:12] LABS: Albumin 3.2 g/dL (3.5-5.0); Calcium 8.6 mg/dL (8.4-10.2); Potassium 3.5 mmol/L (3.5-5.1); Total Bilirubin 0.9 mg/dL (0.2-1.3); Total Protein 6.1 g/dL (6.3-8.2)
[2020-12-12 15:20] LABS: INR 1.1 (<1.2); Prothrombin Time 11.2 sec (9.0-12.0)
--- NOTE | 2020-12-12 15:35 | XR ---
EXAMINATION TYPE: XR chest 2V DATE OF EXAM: 12/12/2020 COMPARISON: 11/12/2020 HISTORY: Shortness of breath TECHNIQUE: Frontal and lateral views of the chest are obtained. FINDINGS: Scattered senescent parenchymal changes noted. Hyperinflation compatible with COPD. There is pulmonary venous congestion with small effusions and cardiomegaly suspicious for congestive failure. Correlate clinically. Mediastinal structures are stable and grossly unremarkable. No evidence for hilar prominence. Degenerative changes dorsal spine. IMPRESSION: 1. There is pulmonary venous congestion with small effusions and cardiomegaly suspicious for congesti ve failure. Correlate clinically.
[2020-12-12] MEDS ORDERED: FUROSEMIDE 10 MG/ML 4 ML VIAL IV STA (15:44)
--- NOTE | 2020-12-12 16:32 | P.CNPUL ---
History of Present Illness Consult date: 12/12/20 Reason for consult: dyspnea History of present illness: 85-year-old female patient who presented emergency department because of worsening shortness of breath. A pulmonary consultation was requested accordingly. This was a transfer from [facility]. The patient went therefore increased shortness of breath and cough. She was found to have a lower pulse of 75% on room air oxygen. She was reported to have an infiltration of the left lung and she was diagnosed having a pneumonia and she was started on IV cefepime and she was transferred to us. Her COVID-19 testing was negative. Her symptoms apparently started 2 days ago. No leg swelling. No neck pain. No chest pain. The patient is known to have valvular heart disease and she has an aortic valve replacement, TAVR with a history of atrial fibrillation, current rhythm is sinus She is also known to have hypertension and hypothyroidism. The patient also has history of coronary artery disease. The patient has been hospitalized recently for an acute non-ST segment myocardial infarction. Cardiac catheterization was done on 11/12/2020 showed mild nonocclusive disease and medical management was recommended. At that time, the patient also had a CT angiogram that was done on 11/14/2020 that showed no evidence of any pulmonary embolism. There was small to moderate-sized bilateral pleural effusion left more than right, and there was mild interstitial edema/fluid overload along with atelectasis of the left lung base. The patient also has a PEG tube in place. There was some foci of air within the abdomen related to recent abdominal surgery. The patient also has had history of incarcerated stomach and she has undergone previous hiatal hernia repair by Dr ozuna is [facility]. The patient was noted to have an intrathoracic paraesophageal hiatal hernia that was repaired surgically. She still has a PEG tube in place for now. She denies having any abdominal pain. She didn't started liquid diet. No reported aspiration. Her current blood work shows a white cell count of 9.6 with a hemoglobin of 11.3, normal coagulation profile, d-dimer of 2.02, normal electrolytes, BUN is at 18 with a creatinine of 0.9, normal LFTs, troponins of 0.03, total protein 6.1 with an albumin of 3.2. For now the patient is on 2 L of oxygen by nasal cannula and pulse ox 97%. Review of Systems GEN.: Tired EYES: None HEENT: None NECK: None RESPIRATORY: Increased cough and dyspnea along with some increased hypoxemia CARDIOVASCULAR: [As above GASTROINTESTINAL: Occasional heartburn, no reported aspiration. GENITOURINARY: Urinary incontinence MUSCULOSKELETAL: Joint pains LYMPHATICS: None HEMATOLOGICAL: None PSYCHIATRY: None NEUROLOGICAL: None Past Medical History Past Medical History: No Reported History, Atrial Fibrillation, Coronary Artery Disease (CAD), GERD/Reflux, Hyperlipidemia, Myocardial Infarction ([place]), Thyroid Disorder Additional Past Medical History / Comment(s): Paraesophageal hiatal hernia history of TAVR with aortic valve replacement History of Any Multi-Drug Resistant Organisms: None Reported Past Surgical History: Adenoidectomy, Cardiac Valve Replacement, Heart Catheterization, Hernia Repair Additional Past Surgical History / Comment(s): heart valve Past Anesthesia/Blood Transfusion Reactions: No Reported Reaction Past Psychological History: No Psychological Hx Reported Smoking Status: Never smoker Past Alcohol Use History: Rare Past Drug Use History: None Reported - Past Family History Mother Additional Family Medical History / Comment(s): Lupus Father Family Medical History: Coronary Artery Disease (CAD) Medications and Allergies Home Medications Medication Instructions Recorded Confirmed Type Aspirin [Adult Low Dose Aspirin EC] 81 mg PO HS 09/19/20 12/12/20 History Levothyroxine Sodium [Synthroid] 88 mcg PO DAILY 09/19/20 12/12/20 History Metoprolol Tartrate [Lopressor] 25 mg PO BID 09/19/20 12/12/20 History Multivit-Min/FA/Lycopen/Lutein 1 tab PO HS 09/19/20 12/12/20 History [Centrum Silver Tablet] Omeprazole [PriLOSEC] 40 mg PO DAILY@1600 09/19/20 12/12/20 History Ubidecarenone [Co Q-10] 100 mg PO DAILY 09/19/20 12/12/20 History Apixaban [Eliquis] 2.5 mg PO BID #60 tab 11/15/20 12/12/20 Rx Atorvastatin [Lipitor] 40 mg PO DAILY #30 tablet 11/15/20 12/12/20 Rx Nitroglycerin Sl Tabs [Nitrostat] 0.4 mg SUBLINGUAL Q5M PRN #30 tab 11/17/20 12/12/20 Rx Amiodarone [Cordarone] 200 mg PO DAILY 12/12/20 12/12/20 History Furosemide [Lasix] 20 mg PO DAILY 12/12/20 12/12/20 History Isosorbide Mononitrate ER [Imdur] 15 mg PO DAILY 12/12/20 12/12/20 History Allergies Allergy/AdvReac Type Severity Reaction Status Date / Time adhesive tape Allergy Rash/Hives Verified 12/12/20 14:56 doxycycline Allergy Unknown Verified 12/12/20 14:56 Sulfa (Sulfonamide Allergy Unknown Verified 12/12/20 14:56 Antibiotics) Physical Exam Vitals: Vital Signs Temp Pulse Resp BP Pulse Ox 12/12/20 14:09 98.9 F 63 18 108/57 97 Intake and Output 12/12/20 12/12/20 12/12/20 06:59 14:59 22:59 Other: Weight 55.338 kg EYES: Pupils equal. Conjunctiva normal. HEENT: External appearance of nose and ears normal, oral cavity grossly normal. NECK: JVD not raised; masses not palpable. HEART: First and second heart sounds are normal; no edema. LUNGS: Respiratory rate normal; clear to auscultation. ABDOMEN: Soft, nontender, liver spleen not palpable, no masses palpable, PEG tube. PSYCH: Alert and oriented x3; mood and affect normal. 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 LYMPHATICS: No lymph nodes palpable in the axilla and neck Results - Laboratory Findings CBC and BMP: 12/12/20 14:51 12/12/20 14:51 PT/INR, D-dimer PT 11.2 sec (9.0-12.0) 12/12/20 14:51 INR 1.1 (<1.2) 12/12/20 14:51 D-Dimer 2.02 mg/L FEU (<0.60) H 12/12/20 14:51 Abnormal lab findings: Abnormal Labs 12/12/20 12/12/20 12/12/20 14:51 14:51 14:51 RBC 3.53 L Hgb 11.3 L D-Dimer 2.02 H Sodium 133 L BUN 18 H Glucose 120 H AST 38 H Total Protein 6.1 L Albumin 3.2 L - Diagnostic Findings Chest x-ray: image reviewed Assessment and Plan Plan: 1 acute hypoxic respiratory failure, shortness of breath on that investigation, rule out aspiration, rule out ongoing pneumonia. Pulmonary embolism is felt to be less likely. Complications related to recent hiatal hernia repair need to be considered including issues like strictures, leaks, fistulas, etc. 2 bilateral pleural effusion left more than right based on previous chest x-rays and previous CT angiogram of the chest that was done in 11/14/2020. No evidence of any pulmonary embolism 3 coronary artery disease with nonocclusive disease post acute non-STEMI back in October 2020. Please refer to the results of the cardiac catheterization 4 history of aortic valve disease post TAVR 5 history of paroxysmal atrial fibrillation current rhythm is sinus, ejection fraction is preserved 6 history of paraesophageal hiatal hernia post surgical repair, still is active in place 7 hypertension 8 hypothyroidism 9 hyperlipidemia 10 acid reflux Plan Obtain computed tomography scan of the chest with contrast Obtain upper GI series Surgery consultation with Dr. Riojas IV cefepime Titrate FiO2 to maintain saturation above 90% Check pro calcitonin level We'll continue to follow
--- NOTE | 2020-12-12 16:37 | CT ---
EXAMINATION TYPE: CT angio chest DATE OF EXAM: 12/12/2020 COMPARISON: 11/14/2020 HISTORY: 85-year-old female shortness of breath, Dyspnea TECHNIQUE: Contiguous axial scanning of the chest performed with IV Contrast, patient injected with 8 0, wasted 33 mL of Isovue 370. Coronal/sagittal MIP reconstructions performed. CT DLP: 174.5 mGycm Automated exposure control for dose reduction was used. FINDINGS: Heart overall normal size without pericardial effusion. No flattening of the interventricular septum reflux of contrast into the hepatic veins. There is some left atrial dilatation. Aorta normal caliber with conventional arch vessel branching anatomy. Enlarging mediastinal and hilar lymphadenopathy. AP window node measures 9 mm. Hilar lymph nodes measure up to 2.1 cm. Left hilar lymph node measures up to 1.5 cm. Lower left peritracheal lymph node measures 1.9 cm. Subcarinal lymph node measures 1.6 cm. Satisfactory opacification of the pulmonary arterial system without evidence for pulmonary embolus. Moderate left and small right pleural effusions are redemonstrated. There are increasing septal lines and developing areas of groundglass Irregular thickening of the distal esophagus with surrounding stranding and fluid. Suspected large hi atal hernia repair. Mild degenerative disc disease mid to lower thoracic spine. IMPRESSION: 1. NO EVIDENCE FOR PULMONARY EMBOLUS. 2. WORSENING SEPTAL LINES AND DEVELOPING AREAS OF GROUNDGLASS. EARLY FOR DEVELOPING PULMONARY EDEMA. 3. CONTINUED MODERATE LEFT AND SMALL RIGHT PLEURAL EFFUSIONS WITH ADJACENT ATELECTASIS. 4. ENLARGING MEDIASTINAL AND HILAR LYMPH NODES CURRENTLY MEASURING UP TO 2.1 CM. LIKELY REACTIVE. 3 M ONT FOLLOW-UP CT CHEST TO ENSURE CLEARANCE. 5. IRREGULAR THICKENING AND POOR DEFINITION OF THE DISTAL ESOPHAGUS WITH SURROUNDING STRANDING AND FL UID. THIS MAY REPRESENT POSTSURGICAL CHANGE RELATED TO HIATAL HERNIA REPAIR. DIRECT VISUALIZATION IF THERE IS CONCERN FOR ESOPHAGEAL INJURY.
--- NOTE | 2020-12-12 17:19 | US ---
EXAMINATION TYPE: US venous doppler duplex LE BI DATE OF EXAM: 12/12/2020 5:10 PM COMPARISON: NONE CLINICAL HISTORY: leg swelling. Bilateral swelling onset 11/04/20 SIDE PERFORMED: Bilateral TECHNIQUE: The lower extremity deep venous system is examined utilizing real time linear array sonog julio with graded compression, doppler sonography and color-flow sonography. VESSELS IMAGED: Common Femoral Vein Deep Femoral Vein Greater Saphenous Vein * Femoral Vein Popliteal Vein Small Saphenous Vein * Proximal Calf Veins (* superficial vessels) Right Leg: Negative for DVT Rt GVS removed Left Leg: Negative for DVT IMPRESSION: No evidence of DVT
[2020-12-12] MEDS: CEFEPIME 2 GM in SODIUM CHLORIDE 0.9% 100 ML IVPB SCH (17:51)
[2020-12-12] MEDS: FUROSEMIDE 10 MG/ML 4 ML VIAL IV SCH (17:51)
[2020-12-12] MEDS ORDERED: NITROGLYCERIN SL TABS 0.4 MG TAB SUBLINGUAL PRN (21:22)
--- NOTE | 2020-12-12 21:36 | P.HPIM ---
History of Present Illness This is a pleasant 85 years old female with past medical history of proximal Atrial Fibrillation, Coronary Artery Disease , GERD, hiatal hernia status post surgical repair, Hyperlipidemia, hypothyroidism,history of TAVR with aortic valve replacement. She is a patient of Dr. gill Hensley. Patient presents because of dyspnea 2 days associated with coughing and secretions back in her throat but no phlegm. No chest pain. No urinary symptoms. She had some diarrhea but stopped now. Walking with no difficulties. Patient denies smoking, alcohol or illicit drugs. On admission her Vitas looks stable. Her creatinine 0.9 which looks at baseline on GFR is showing third stage chronic kidney disease, d-dimer elevated at 2.02. CTA of the chest showing no pulmonary embolism, bilateral hilar and mediastinal lymphadenopathy and thickened distal esophageal tissue suspicious for recent hiatal hernia repair. Ultrasound of the leg is negative for DVT. EKG showing normal sinus rhythm at [address]-T changes. QTC 487. BNP is elevated at 4730. On admission patient was started on Lasix 40 mg 3 times a day, cefepime, home dose of Eliquis Review of Systems CONSTITUTIONAL: No fever, no malaise, no fatigue. HEENT: No recent visual problems or hearing problems. Denied any sore throat. CARDIOVASCULAR: No orthopnea, PND, no palpitations, no syncope. PULMONARY: No chest wall tenderness no cough, no hemoptysis. GASTROINTESTINAL: No diarrhea, no nausea, no vomiting, no abdominal pain. Normoactive bowel sounds. NEUROLOGICAL: No headaches, no weakness, no numbness. HEMATOLOGICAL: Denies any bleeding or petechiae. GENITOURINARY: Denies any burning micturition, frequency, or urgency. MUSCULOSKELETAL/RHEUMATOLOGICAL: Denies any joint pain, swelling, or any muscle pain. ENDOCRINE: Denies any polyuria or polydipsia. Past Medical History Past Medical History: No Reported History, Atrial Fibrillation, Coronary Artery Disease (CAD), GERD/Reflux, Hyperlipidemia, Myocardial Infarction ([place]), Thyroid Disorder Additional Past Medical History / Comment(s): Paraesophageal hiatal hernia history of TAVR with aortic valve replacement History of Any Multi-Drug Resistant Organisms: None Reported Past Surgical History: Adenoidectomy, Cardiac Valve Replacement, Heart Ca theterization, Hernia Repair Additional Past Surgical History / Comment(s): heart valve Past Anesthesia/Blood Transfusion Reactions: No Reported Reaction Past Psychological History: No Psychological Hx Reported Smoking Status: Never smoker Past Alcohol Use History: Rare Past Drug Use History: None Reported - Past Family History Mother Additional Family Medical History / Comment(s): Lupus Father Family Medical History: Coronary Artery Disease (CAD) Medications and Allergies Home Medications Medication Instructions Recorded Confirmed Type Aspirin [Adult Low Dose Aspirin EC] 81 mg PO HS 09/19/20 12/12/20 History Levothyroxine Sodium [Synthroid] 88 mcg PO DAILY 09/19/20 12/12/20 History Metoprolol Tartrate [Lopressor] 25 mg PO BID 09/19/20 12/12/20 History Multivit-Min/FA/Lycopen/Lutein 1 tab PO HS 09/19/20 12/12/20 History [Centrum Silver Tablet] Omeprazole [PriLOSEC] 40 mg PO DAILY@1600 09/19/20 12/12/20 History Ubidecarenone [Co Q-10] 100 mg PO DAILY 09/19/20 12/12/20 History Apixaban [Eliquis] 2.5 mg PO BID #60 tab 11/15/20 12/12/20 Rx Atorvastatin [Lipitor] 40 mg PO DAILY #30 tablet 11/15/20 12/12/20 Rx Nitroglycerin Sl Tabs [Nitrostat] 0.4 mg SUBLINGUAL Q5M PRN #30 tab 11/17/20 12/12/20 Rx Amiodarone [Cordarone] 200 mg PO DAILY 12/12/20 12/12/20 History Furosemide [Lasix] 20 mg PO DAILY 12/12/20 12/12/20 History Isosorbide Mononitrate ER [Imdur] 15 mg PO DAILY 12/12/20 12/12/20 History Allergies Allergy/AdvReac Type Severity Reaction Status Date / Time adhesive tape Allergy Rash/Hives Verified 12/12/20 14:56 doxycycline Allergy Unknown Verified 12/12/20 14:56 Sulfa (Sulfonamide Allergy Unknown Verified 12/12/20 14:56 Antibiotics) Physical Exam Vitals: Vital Signs Temp Pulse Resp BP Pulse Ox 12/12/20 19:21 68 18 115/75 98 12/12/20 16:30 61 16 120/57 98 12/12/20 16:00 66 18 99/55 93 L 12/12/20 15:00 60 99/46 97 12/12/20 14:30 18 108/57 97 12/12/20 14:09 98.9 F 63 18 108/57 97 12/12/20 14:08 117/101 Intake and Output 12/12/20 12/12/20 12/12/20 06:59 14:59 22:59 Other: Weight 55.338 kg GENERAL: The patient is alert and oriented x3, not in any acute distress. Well developed, well nourished. HEENT: Pupils are round and equally reacting to light. EOMI. No scleral icterus. No conjunctival pallor. Normocephalic, atraumatic. No pharyngeal erythema. No thyromegaly. CARDIOVASCULAR: S1 and S2 present. No murmurs, rubs, or gallops. -PULMONARY: Chest is clear to auscultation, no wheezing. mild bilateral basal precipitation. ABDOMEN: Soft, nontender, nondistended, normoactive bowel sounds. No palpable organomegaly. MUSCULOSKELETAL: No joint swelling or deformity. -EXTREMITIES: No cyanosis, clubbing,. Bilateral pitting edema. NEUROLOGICAL: Gross neurological examination did not reveal any focal deficits. SKIN: No rashes. no petechiae. Results CBC & Chem 7: 12/12/20 14:51 12/12/20 14:51 Labs: Abnormal Lab Results - Last 24 Hours (Table) 12/12/20 12/12/20 12/12/20 Range/Units 14:51 14:51 14:51 RBC 3.53 L (3.80-5.40) m/uL Hgb 11.3 L (11.4-16.0) gm/dL D-Dimer 2.02 H (<0.60) mg/L FEU Sodium 133 L (137-145) mmol/L BUN 18 H (7-17) mg/dL Glucose 120 H (74-99) mg/dL AST 38 H (14-36) U/L Total Protein 6.1 L (6.3-8.2) g/dL Albumin 3.2 L (3.5-5.0) g/dL Assessment and Plan Assessment: Acute on chronic diastolic heart failure, with ejection fraction of 50-55% with moderate mitral stenosis Mild Acute hypoxic respiratory failure secondary to above Elevated d-dimer with negative pulmonary embolism on CTA of the chest and DVT per ultrasound of the legs. Bilateral enlarged hilar and mediastinal lymphadenopathy Thickened distal esophagus, could be related to recent repair of hiatal hernia Kidney disease stage III History of aortic valve disease with TAVR Paroxysmal atrial fibrillation on Eliquis, metoprolol and amiodarone Plan: This is a pleasant 85 years old female who presents with CHF Continue with IV Lasix and monitor input and output and electrolytes. Suspicion of infection is very low however we will continue with antibiotic and check for procalcitonin Continue with Eliquis Follow-up recommendation by insurance claims adjuster, core blower operator and general surgery. Labs and medication were reviewed.. Continue same treatment. Continue with symptomatic treatment. Resume home medication. Monitor lytes and vitals. DVT and GI prophylaxis. Further recommendationsas per clinical course of the patient DVT prophylaxis: Eliquis GI Prophylaxis: Pepcid PT/OT: Pending Prognosis is guarded
[2020-12-12] MEDS ORDERED: ACETAMINOPHEN TAB 325 MG TAB PO PRN (23:48)
[2020-12-13] MEDS: FUROSEMIDE 10 MG/ML 4 ML VIAL IV SCH ×3 (01:48→22:20)
[2020-12-13] MEDS: CEFEPIME 2 GM in SODIUM CHLORIDE 0.9% 100 ML IVPB SCH ×2 (03:46→15:53)
[2020-12-13] MEDS: LEVOTHYROXINE 88 MCG TAB PO SCH (05:50)
--- NOTE | 2020-12-13 07:17 | XR ---
EXAMINATION TYPE: XR chest 2V DATE OF EXAM: 12/13/2020 HISTORY: Shortness of breath. COMPARISON: None. TECHNIQUE: 2 views of the chest is submitted. FINDINGS: Demonstrated are scattered senescent parenchymal change. Interstitial prominence with basilar atelectasis or small effusions noted. The heart is stable. Hilar and mediastinal structures are within normal limits. Degenerative changes are seen of the dorsal spine. IMPRESSION: 1. Interstitial prominence with basilar atelectasis or small effusions noted.
[2020-12-13] MEDS: AMIODARONE 200 MG TAB PO SCH (07:42)
[2020-12-13] MEDS: APIXABAN 2.5 MG TABLET PO SCH ×2 (07:42→22:20)
[2020-12-13] MEDS: ATORVASTATIN 40 MG TAB PO SCH (07:43)
[2020-12-13] MEDS: METOPROLOL TARTRATE 25 MG TAB PO SCH ×2 (07:43→22:20)
[2020-12-13] MEDS: ISOSORBIDE MONONITRATE ER 15 MG TAB PO SCH (08:11)
[2020-12-13] MEDS ORDERED: FAMOTIDINE 20 MG/2 ML VIAL IV SCH (09:00)
[2020-12-13 09:03] LABS: Basophils # (A) 0.04 X 10*3/uL (0.00-0.10); Basophils % (A) 0.4 %; Eosinophils # (A) 0.77 X 10*3/uL (0.04-0.35); Eosinophils % (A) 7.4 %; HGB 10.7 g/dL (12.0-15.0); Lymphocytes # (A) 1.22 X 10*3/uL (0.90-5.00); Lymphocytes % (A) 11.7 %; MCH 31.8 pg (27.0-32.0); MCHC 32.4 g/dL (32.0-37.0); MCV 98.2 fL (80.0-97.0); Monocytes # (A) 1.07 X 10*3/uL (0.20-1.00); Monocytes % (A) 10.2 %; Neutrophils # (A) 7.34 X 10*3/uL (1.80-7.70); Platelet Count 237 X 10*3/uL (140-440); RBC 3.36 X 10*6/uL (4.10-5.20); RDW 14.3 % (11.5-14.5); WBC 10.47 X 10*3/uL (4.50-10.00)
[2020-12-13 09:32] LABS: African American GFR (CKD) 50.6 (60.0-200.0); Anion Gap 15.5 mmol/L (4.00-12.00); BUN/Creat Ratio 14.09 Ratio (12.00-20.00); Blood Urea Nitrogen 16.2 mg/dL (9.0-27.0); Calcium 8.6 mg/dL (8.7-10.3); Carbon Dioxide 24.5 mmol/L (21.6-31.8); Magnesium 1.9 mg/dL (1.5-2.4); Non-African American GFR(CKD) 43.7 (60.0-200.0)
[2020-12-13] MEDS ORDERED: Potassium Replacement Protocol 1 EACH MISC MISCELLANE PRN (10:29)
[2020-12-13] MEDS: POTASSIUM CHLORIDE ER 20 MEQ TAB.ER PO SCH ×2 (10:49→11:54)
--- NOTE | 2020-12-13 10:59 | P.PN ---
Subjective Progress Note Date: 12/13/20 85-year-old female patient who presented emergency department because of worsen ing shortness of breath. A pulmonary consultation was requested accordingly. This was a transfer from [facility]. The patient went therefore increased shortness of breath and cough. She was found to have a lower pulse of 75% on room air oxygen. She was reported to have an infiltration of the left lung and she was diagnosed having a pneumonia and she was started on IV cefepime and she was transferred to us. Her COVID-19 testing was negative. Her symptoms apparently started 2 days ago. No leg swelling. No neck pain. No chest pain. The patient is known to have valvular heart disease and she has an aortic valve replacement, TAVR with a history of atrial fibrillation, current rhythm is sinus She is also known to have hypertension and hypothyroidism. The patient also has history of coronary artery disease. The patient has been hospitalized recently for an acute non-ST segment myocardial infarction. Cardiac catheterization was done on 11/12/2020 showed mild nonocclusive disease and medical management was recommended. At that time, the patient also had a CT angiogram that was done on 11/14/2020 that showed no evidence of any pulmonary embolism. There was small to moderate-sized bilateral pleural effusion left more than right, and there was mild interstitial edema/fluid overload along with atelectasis of the left lung base. The patient also has a PEG tube in place. There was some foci of air within the abdomen related to recent abdominal surgery. The patient also has had history of incarcerated stomach and she has undergone previous hiatal hernia repair by Dr ozuna is [facility]. The patient was noted to have an intrathoracic paraesophageal hiatal hernia that was repaired surgically. She still has a PEG tube in place for now. She denies having any abdominal pain. She didn't started liquid diet. No reported aspiration. Her current blood work shows a white cell count of 9.6 with a hemoglobin of 11.3, normal coagulation profile, d-dimer of 2.02, normal electrolytes, BUN is at 18 with a creatinine of 0.9, normal LFTs, troponins of 0.03, total protein 6.1 with an albumin of 3.2. For now the patient is on 2 L of oxygen by nasal cannula and pulse ox 97%. On today's evaluation of 12/10/2020, the patient is feeling well. No signif icant respiratory difficulties. Cough is still present. She is on 2 L of oxygen by nasal cannula. Further investigation was not with a CAT scan of the chest that showed no evidence of any pulmonary embolism. There was worsening septal lines of developing areas of groundglass consistent with questionable early pulmonary edema. She also had moderate left and small right-sided pleural effusion with adjacent atelectasis an enlarging mediastinal and hilar lymph nodes measuring up to 2.1 cm in size. Irregular thickening and poor definition of the distal esophagus was noted. The Doppler of the lower extremity has been negative. For now, the patient is covered with empiric antibiotics. The patient is currently on IV cefepime. Gen. surgery consultation was requested as still pending for now. Objective - Vital Signs Vital signs: Vital Signs Temp 97.8 F 12/13/20 08:00 Pulse 68 12/13/20 08:00 Resp 18 12/13/20 08:00 BP 104/63 12/13/20 08:00 Pulse Ox 97 12/13/20 08:00 Intake & Output 12/12/20 12/13/20 12/13/20 18:59 06:59 18:59 Weight 55.338 kg 53 kg Other: Voiding Method Bedside Commode Bedside Commode # Voids 0 # Bowel Movements 0 - Exam EYES: Pupils equal. Conjunctiva normal. HEENT: External appearance of nose and ears normal, oral cavity grossly normal. NECK: JVD not raised; masses not palpable. HEART: First and second heart sounds are normal; no edema. LUNGS: Respiratory rate normal; clear to auscultation. ABDOMEN: Soft, nontender, liver spleen not palpable, no masses palpable, PEG tube. PSYCH: Alert and oriented x3; mood and affect normal. 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 LYMPHATICS: No lymph nodes palpable in the axilla and neck - Labs CBC & Chem 7: 12/13/20 04:11 12/13/20 04:11 Labs: Abnormal Lab Results - Last 24 Hours (Table) 12/12/20 12/12/20 12/12/20 Range/Units 14:51 14:51 14:51 WBC (4.50-10.00) X 10*3/uL RBC 3.53 L (3.80-5.40) m/uL Hgb 11.3 L (11.4-16.0) gm/dL Hct (37.2-46.3) % MCV (80.0-97.0) fL Monocytes # (0.20-1.00) X 10*3/uL Eosinophils # (0.04-0.35) X 10*3/uL D-Dimer 2.02 H (<0.60) mg/L FEU Sodium 133 L (137-145) mmol/L Potassium (3.5-5.5) mmol/L Anion Gap (4.00-12.00) mmol/L BUN 18 H (7-17) mg/dL Est GFR (CKD-EPI)AfAm (60.0-200.0) Est GFR (CKD-EPI)NonAf (60.0-200.0) Glucose 120 H (74-99) mg/dL Calcium (8.7-10.3) mg/dL AST 38 H (14-36) U/L Total Protein 6.1 L (6.3-8.2) g/dL Albumin 3.2 L (3.5-5.0) g/dL Procalcitonin (0.02-0.09) ng/mL 12/13/20 12/13/20 12/13/20 Range/Units 04:11 04:11 04:11 WBC 10.47 H (4.50-10.00) X 10*3/uL RBC 3.36 L (3.80-5.40) m/uL Hgb 10.7 L (11.4-16.0) gm/dL Hct 33.0 L (37.2-46.3) % MCV 98.2 H (80.0-97.0) fL Monocytes # 1.07 H (0.20-1.00) X 10*3/uL Eosinophils # 0.77 H (0.04-0.35) X 10*3/uL D-Dimer (<0.60) mg/L FEU Sodium (137-145) mmol/L Potassium 3.0 L (3.5-5.5) mmol/L Anion Gap 15.50 H (4.00-12.00) mmol/L BUN (7-17) mg/dL Est GFR (CKD-EPI)AfAm 50.6 L (60.0-200.0) Est GFR (CKD-EPI)NonAf 43.7 L (60.0-200.0) Glucose 116 H (74-99) mg/dL Calcium 8.6 L (8.7-10.3) mg/dL AST (14-36) U/L Total Protein (6.3-8.2) g/dL Albumin (3.5-5.0) g/dL Procalcitonin 0.32 H (0.02-0.09) ng/mL Assessment and Plan Plan: 1 acute hypoxic respiratory failure, shortness of breath on that investigation, rule out aspiration, rule out ongoing pneumonia. Pulmonary embolism is felt to be less likely. Complications related to recent hiatal hernia repair need to be considered including issues like strictures, leaks, fistulas, etc. the patient is calm the chest showed stable bilateral pleural effusions. No evidence of any pulmonary embolism. Early groundglass changes possibly consistent with CHF. 2 bilateral pleural effusion left more than right based on previous chest x-rays and previous CT angiogram of the chest that was done in 11/14/2020. No evidence of any pulmonary embolism 3 coronary artery disease with nonocclusive disease post acute non-STEMI back in October 2020. Please refer to the results of the cardiac catheterization 4 history of aortic valve disease post TAVR 5 history of paroxysmal atrial fibrillation current rhythm is sinus, ejection fraction is preserved 6 history of paraesophageal hiatal hernia post surgical repair, still is active in place 7 hypertension 8 hypothyroidism 9 hyperlipidemia 10 acid reflux Plan Obtain computed tomography scan of the chest with contrast, the CAT scan was reviewed and was consistent mainly with CHF. The patient about the pleural effusions some early groundglass changes. The patient would benefit from diuresis. Her condition is stable for now. Surgery consultation with Dr. Riojas, consider upper GI series to rule out a ny complications related to her esophageal gastric surgery IV cefepimeto be continued for now Titrate FiO2 to maintain saturation above 90% Check pro calcitonin level 0.32 Continue IV Lasix and drop the dose to 40 mg every 12 hours. We'll continue to follow
--- NOTE | 2020-12-13 11:01 | P.GSCN ---
History of Present Illness Consult date: 12/13/20 Reason for Consult: Previous history of hiatal hernia History of present illness: This is a 5-year-old female who is minimal hospital for workup of dyspnea. Patient underwent previous repair of a large hiatal hernia and [facility]. Patient denies any dysphagia or GERD symptoms currently. She states her breathing is also improved. Past Medical History Past Medical History: No Reported History, Atrial Fibrillation, Coronary Artery Disease (CAD), GERD/Reflux, Hyperlipidemia, Myocardial Infarction ([place]), Thyroid Disorder Additional Past Medical History / Comment(s): Paraesophageal hiatal hernia history of TAVR with aortic valve replacement Last Myocardial Infarction Date:: 11/12/2020 History of Any Multi-Drug Resistant Organisms: None Reported Past Surgical History: Adenoidectomy, Cardiac Valve Replacement, Heart Catheterization, Hernia Repair Additional Past Surgical History / Comment(s): heart valve Past Anesthesia/Blood Transfusion Reactions: No Reported Reaction Past Psychological History: No Psychological Hx Reported Smoking Status: Never smoker Past Alcohol Use History: Rare Past Drug Use History: None Reported - Past Family History Mother Additional Family Medical History / Comment(s): Lupus Father Family Medical History: Coronary Artery Disease (CAD) Medications and Allergies Home Medications Medication Instructions Recorded Confirmed Type Aspirin [Adult Low Dose Aspirin EC] 81 mg PO HS 09/19/20 12/12/20 History Levothyroxine Sodium [Synthroid] 88 mcg PO DAILY 09/19/20 12/12/20 History Metoprolol Tartrate [Lopressor] 25 mg PO BID 09/19/20 12/12/20 History Multivit-Min/FA/Lycopen/Lutein 1 tab PO HS 09/19/20 12/12/20 History [Centrum Silver Tablet] Omeprazole [PriLOSEC] 40 mg PO DAILY@1600 09/19/20 12/12/20 History Ubidecarenone [Co Q-10] 100 mg PO DAILY 09/19/20 12/12/20 History Apixaban [Eliquis] 2.5 mg PO BID #60 tab 11/15/20 12/12/20 Rx Atorvastatin [Lipitor] 40 mg PO DAILY #30 tablet 11/15/20 12/12/20 Rx Nitroglycerin Sl Tabs [Nitrostat] 0.4 mg SUBLINGUAL Q5M PRN #30 tab 11/17/20 12/12/20 Rx Amiodarone [Cordarone] 200 mg PO DAILY 12/12/20 12/12/20 History Furosemide [Lasix] 20 mg PO DAILY 12/12/20 12/12/20 History Isosorbide Mononitrate ER [Imdur] 15 mg PO DAILY 12/12/20 12/12/20 History Allergies Allergy/AdvReac Type Severity Reaction Status Date / Time adhesive tape Allergy Rash/Hives Verified 12/12/20 14:56 doxycycline Allergy Unknown Verified 12/12/20 14:56 Sulfa (Sulfonamide Allergy Unknown Verified 12/12/20 14:56 Antibiotics) Surgical - Exam Vital Signs BP 117/101 12/12/20 14:08 - General well developed, well nourished, no distress - Eyes PERRL - ENT normal pinna - Neck no masses - Respiratory normal expansion - Cardiovascular Rhythm: regular - Abdomen Abdomen: soft, non tender Results - Labs 12/13/20 04:11 12/13/20 04:11 Abnormal Lab Results - Last 24 Hours (Table) 12/12/20 12/12/20 12/12/20 Range/Units 14:51 14:51 14:51 WBC (4.50-10.00) X 10*3/uL RBC 3.53 L (3.80-5.40) m/uL Hgb 11.3 L (11.4-16.0) gm/dL Hct (37.2-46.3) % MCV (80.0-97.0) fL Monocytes # (0.20-1.00) X 10*3/uL Eosinophils # (0.04-0.35) X 10*3/uL D-Dimer 2.02 H (<0.60) mg/L FEU Sodium 133 L (137-145) mmol/L Potassium (3.5-5.5) mmol/L Anion Gap (4.00-12.00) mmol/L BUN 18 H (7-17) mg/dL Est GFR (CKD-EPI)AfAm (60.0-200.0) Est GFR (CKD-EPI)NonAf (60.0-200.0) Glucose 120 H (74-99) mg/dL Calcium (8.7-10.3) mg/dL AST 38 H (14-36) U/L Total Protein 6.1 L (6.3-8.2) g/dL Albumin 3.2 L (3.5-5.0) g/dL Procalcitonin (0.02-0.09) ng/mL 12/13/20 12/13/20 12/13/20 Range/Units 04:11 04:11 04:11 WBC 10.47 H (4.50-10.00) X 10*3/uL RBC 3.36 L (3.80-5.40) m/uL Hgb 10.7 L (11.4-16.0) gm/dL Hct 33.0 L (37.2-46.3) % MCV 98.2 H (80.0-97.0) fL Monocytes # 1.07 H (0.20-1.00) X 10*3/uL Eosinophils # 0.77 H (0.04-0.35) X 10*3/uL D-Dimer (<0.60) mg/L FEU Sodium (137-145) mmol/L Potassium 3.0 L (3.5-5.5) mmol/L Anion Gap 15.50 H (4.00-12.00) mmol/L BUN (7-17) mg/dL Est GFR (CKD-EPI)AfAm 50.6 L (60.0-200.0) Est GFR (CKD-EPI)NonAf 43.7 L (60.0-200.0) Glucose 116 H (74-99) mg/dL Calcium 8.6 L (8.7-10.3) mg/dL AST (14-36) U/L Total Protein (6.3-8.2) g/dL Albumin (3.5-5.0) g/dL Procalcitonin 0.32 H (0.02-0.09) ng/mL Diabetes panel 12/12/20 12/13/20 Range/Units 14:51 04:11 Sodium 133 L 137 (137-145) mmol/L Potassium 3.5 3.0 L (3.5-5.1) mmol/L Chloride 102 97 (98-107) mmol/L Carbon Dioxide 22 24.5 (22-30) mmol/L BUN 18 H 16.2 (7-17) mg/dL Creatinine 0.92 1.2 (0.52-1.04) mg/dL Glucose 120 H 116 H (74-99) mg/dL Calcium 8.6 8.6 L (8.4-10.2) mg/dL AST 38 H (14-36) U/L ALT 30 (4-34) U/L Alkaline Phosphatase 89 (38-126) U/L Total Protein 6.1 L (6.3-8.2) g/dL Albumin 3.2 L (3.5-5.0) g/dL Calcium panel 12/12/20 12/13/20 Range/Units 14:51 04:11 Calcium 8.6 8.6 L (8.4-10.2) mg/dL Albumin 3.2 L (3.5-5.0) g/dL Pituitary panel 12/12/20 12/13/20 Range/Units 14:51 04:11 Sodium 133 L 137 (137-145) mmol/L Potassium 3.5 3.0 L (3.5-5.1) mmol/L Chloride 102 97 (98-107) mmol/L Carbon Dioxide 22 24.5 (22-30) mmol/L BUN 18 H 16.2 (7-17) mg/dL Creatinine 0.92 1.2 (0.52-1.04) mg/dL Glucose 120 H 116 H (74-99) mg/dL Calcium 8.6 8.6 L (8.4-10.2) mg/dL Adrenal panel 12/12/20 12/13/20 Range/Units 14:51 04:11 Sodium 133 L 137 (137-145) mmol/L Potassium 3.5 3.0 L (3.5-5.1) mmol/L Chloride 102 97 (98-107) mmol/L Carbon Dioxide 22 24.5 (22-30) mmol/L BUN 18 H 16.2 (7-17) mg/dL Creatinine 0.92 1.2 (0.52-1.04) mg/dL Glucose 120 H 116 H (74-99) mg/dL Calcium 8.6 8.6 L (8.4-10.2) mg/dL Total Bilirubin 0.9 (0.2-1.3) mg/dL AST 38 H (14-36) U/L ALT 30 (4-34) U/L Alkaline Phosphatase 89 (38-126) U/L Total Protein 6.1 L (6.3-8.2) g/dL Albumin 3.2 L (3.5-5.0) g/dL Assessment and Plan Assessment: Recent repair of large hiatal hernia. Patient has no symptoms of dysphagia and GERD. She will continue medical workup of her dyspnea. No surgical intervention is planned.
--- NOTE | 2020-12-13 14:16 | P.PN ---
Subjective This is a pleasant 85 years old female with past medical history of proximal Atrial Fibrillation, Coronary Artery Disease , GERD, hiatal hernia status post surgical repair, Hyperlipidemia, hypothyroidism,history of TAVR with aortic valve replacement. She is a patient of Dr. gill Hensley. Patient presents because of dyspnea 2 days associated with coughing and secretions back in her throat but no phlegm. No chest pain. No urinary symptoms. She had some diarrhea but stopped now. Walking with no difficulties. Patient denies smoking, alcohol or illicit drugs. On admission her Vitas looks stable. Her creatinine 0.9 which looks at baseline on GFR is showing third stage chronic kidney disease, d-dimer elevated at 2.02. CTA of the chest showing no pulmonary embolism, bilateral hilar and mediastinal lymphadenopathy and thickened distal esophageal tissue suspicious for recent hiatal hernia repair. Ultrasound of the leg is negative for DVT. EKG showing normal sinus rhythm at [address]-T changes. QTC 487. BNP is elevated at 4730. On admission patient was started on Lasix 40 mg 3 times a day, cefepime, home dose of Eliquis 12/13/2020 Patient dyspnea is better today, her leg swelling is better today and only minimal, therefore her Lasix were lowered from 40 mg 3 times a day down to twice a day. With mild grade fever and leukocytosis may be some mild elements of aspiration pneumonia. Patient is continued on cefepime for now. No surgical intervention. And she kept on home dose of Eliquis 2.5 mg and Pepcid for GI prophylaxis. procalcitonin is mildly elevated at 0.32. And chest x-ray showing bibasilar atelectasis versus early infiltrate. Wound about her bilateral hilar and mediastinal lymphadenopathy with rec ommendation to follow up in 3 months and she agrees with him already on the case Objective - Vital Signs Vital signs: Vital Signs Temp 97.8 F 12/13/20 08:00 Pulse 68 12/13/20 08:00 Resp 18 12/13/20 08:00 BP 104/63 12/13/20 08:00 Pulse Ox 97 12/13/20 08:00 Intake & Output 12/12/20 12/13/20 12/13/20 18:59 06:59 18:59 Weight 55.338 kg 53 kg Other: Voiding Method Bedside Commode Bedside Commode # Voids 0 # Bowel Movements 0 - Exam GENERAL: The patient is alert and oriented x3, not in any acute distress. Well developed, well nourished. HEENT: Pupils are round and equally reacting to light. EOMI. No scleral icterus. No conjunctival pallor. Normocephalic, atraumatic. No pharyngeal erythema. No thyromegaly. CARDIOVASCULAR: S1 and S2 present. No murmurs, rubs, or gallops. -PULMONARY: Chest is clear to auscultation, no wheezing. mild bilateral basal precipitation. ABDOMEN: Soft, nontender, nondistended, normoactive bowel sounds. No palpable organomegaly. MUSCULOSKELETAL: No joint swelling or deformity. -EXTREMITIES: No cyanosis, clubbing,. Bilateral pitting edema, significantly improved NEUROLOGICAL: Gross neurological examination did not reveal any focal deficits. SKIN: No rashes. no petechiae. - Labs CBC & Chem 7: 12/13/20 04:11 12/13/20 04:11 Labs: Abnormal Lab Results - Last 24 Hours (Table) 12/12/20 12/12/20 12/12/20 Range/Units 14:51 14:51 14:51 WBC (4.50-10.00) X 10*3/uL RBC 3.53 L (3.80-5.40) m/uL Hgb 11.3 L (11.4-16.0) gm/dL Hct (37.2-46.3) % MCV (80.0-97.0) fL Monocytes # (0.20-1.00) X 10*3/uL Eosinophils # (0.04-0.35) X 10*3/uL D-Dimer 2.02 H (<0.60) mg/L FEU Sodium 133 L (137-145) mmol/L Potassium (3.5-5.5) mmol/L Anion Gap (4.00-12.00) mmol/L BUN 18 H (7-17) mg/dL Est GFR (CKD-EPI)AfAm (60.0-200.0) Est GFR (CKD-EPI)NonAf (60.0-200.0) Glucose 120 H (74-99) mg/dL Calcium (8.7-10.3) mg/dL AST 38 H (14-36) U/L Total Protein 6.1 L (6.3-8.2) g/dL Albumin 3.2 L (3.5-5.0) g/dL Procalcitonin (0.02-0.09) ng/mL 12/13/20 12/13/20 12/13/20 Range/Units 04:11 04:11 04:11 WBC 10.47 H (4.50-10.00) X 10*3/uL RBC 3.36 L (3.80-5.40) m/uL Hgb 10.7 L (11.4-16.0) gm/dL Hct 33.0 L (37.2-46.3) % MCV 98.2 H (80.0-97.0) fL Monocytes # 1.07 H (0.20-1.00) X 10*3/uL Eosinophils # 0.77 H (0.04-0.35) X 10*3/uL D-Dimer (<0.60) mg/L FEU Sodium (137-145) mmol/L Potassium 3.0 L (3.5-5.5) mmol/L Anion Gap 15.50 H (4.00-12.00) mmol/L BUN (7-17) mg/dL Est GFR (CKD-EPI)AfAm 50.6 L (60.0-200.0) Est GFR (CKD-EPI)NonAf 43.7 L (60.0-200.0) Glucose 116 H (74-99) mg/dL Calcium 8.6 L (8.7-10.3) mg/dL AST (14-36) U/L Total Protein (6.3-8.2) g/dL Albumin (3.5-5.0) g/dL Procalcitonin 0.32 H (0.02-0.09) ng/mL Assessment and Plan Assessment: Acute on chronic diastolic heart failure, with ejection fraction of 50-55% with moderate mitral stenosis Probably mild aspiration pneumonia Mild Acute hypoxic respiratory failure secondary to above Elevated d-dimer with negative pulmonary embolism on CTA of the chest and DVT per ultrasound of the legs. Bilateral enlarged hilar and mediastinal lymphadenopathy Thickened distal esophagus, could be related to recent repair of hiatal hernia Kidney disease stage III History of aortic valve disease with TAVR Paroxysmal atrial fibrillation on Eliquis, metoprolol and amiodarone Plan: This is a pleasant 85 years old female who presents with CHF Continue with IV Lasix and monitor input and output and electrolytes. Continue with cefepime Continue with Eliquis Follow-up recommendation by gymnasium teacher, laboratory inspector and general surgery. Labs and medication were reviewed.. Continue same treatment. Continue with symptomatic treatment. Resume home medication. Monitor lytes and vitals. DVT and GI prophylaxis. Further recommendationsas per clinical course of the patient DVT prophylaxis: Eliquis GI Prophylaxis: Pepcid PT/OT: Pending Prognosis is guarded
--- NOTE | 2020-12-13 16:03 | P.CRDCN ---
History of Present Illness Consult date: 12/13/20 Chief complaint: Shortness of breath History of present illness: This is a pleasant 85-year-old female patient who was seen by our service recent ly with paroxysmal atrial fibrillation currently on oral anticoagulation as well as valvular heart disease and status post transcutaneous aortic valve replacement as well as multiple comorbid conditions was admitted to the hospital for further evaluation of increasing shortness of breath. The patient is known to our service from recent hospital admission with a chest discomfort and at that point she underwent a heart catheterization which revealed mild nonobstructive coronary artery disease. She underwent an echocardiogram at that point and that revealed normal left ventricular systolic function with evidence of normally functioning transcatheter valve and evidence of moderate mitral stenosis. The patient was discharged from the hospital in stable medical condition but she presented again because of dyspnea for the last few days associated with cough. No symptoms of chest pain or chest discomfort. No symptoms of fever or chills. No dizziness or lightheadedness and no feeling of heart racing or fluttering or presyncope or syncope. The chest x-ray showed findings consistent with heart failure and also bilateral pleural effusion. The patient was started on Lasix and she was seen today. She stated that she is feeling better. The shortness of breath has improved. She stated that she did have mild bilateral lower extremity edema and that also has improved. The EKG showed sinus rhythm without any significant ST or T-wave abnormalities. Her NT proBNP came in to be elevated. Pulmonary team is also on the case regarding another etiology for the shortness of breath. Please note that the patient underwent recently a hiatal hernia repair. Past Medical History Past Medical History: No Reported History, Atrial Fibrillation, Coronary Artery Disease (CAD), GERD/Reflux, Hyperlipidemia, Myocardial Infarction (VT), Thyroid Disorder Additional Past Medical History / Comment(s): Paraesophageal hiatal hernia h istory of TAVR with aortic valve replacement Last Myocardial Infarction Date:: 11/12/2020 History of Any Multi-Drug Resistant Organisms: None Reported Past Surgical History: Adenoidectomy, Cardiac Valve Replacement, Heart Cat heterization, Hernia Repair Additional Past Surgical History / Comment(s): heart valve Past Anesthesia/Blood Transfusion Reactions: No Reported Reaction Past Psychological History: No Psychological Hx Reported Smoking Status: Never smoker Past Alcohol Use History: Rare Past Drug Use History: None Reported - Past Family History Mother Additional Family Medical History / Comment(s): Lupus Father Family Medical History: Coronary Artery Disease (CAD) Medications and Allergies Home Medications Medication Instructions Recorded Confirmed Type Aspirin [Adult Low Dose Aspirin EC] 81 mg PO HS 09/19/20 12/12/20 History Levothyroxine Sodium [Synthroid] 88 mcg PO DAILY 09/19/20 12/12/20 History Metoprolol Tartrate [Lopressor] 25 mg PO BID 09/19/20 12/12/20 History Multivit-Min/FA/Lycopen/Lutein 1 tab PO HS 09/19/20 12/12/20 History [Centrum Silver Tablet] Omeprazole [PriLOSEC] 40 mg PO DAILY@1600 09/19/20 12/12/20 History Ubidecarenone [Co Q-10] 100 mg PO DAILY 09/19/20 12/12/20 History Apixaban [Eliquis] 2.5 mg PO BID #60 tab 11/15/20 12/12/20 Rx Atorvastatin [Lipitor] 40 mg PO DAILY #30 tablet 11/15/20 12/12/20 Rx Nitroglycerin Sl Tabs [Nitrostat] 0.4 mg SUBLINGUAL Q5M PRN #30 tab 11/17/20 12/12/20 Rx Amiodarone [Cordarone] 200 mg PO DAILY 12/12/20 12/12/20 History Furosemide [Lasix] 20 mg PO DAILY 12/12/20 12/12/20 History Isosorbide Mononitrate ER [Imdur] 15 mg PO DAILY 12/12/20 12/12/20 History Allergies Allergy/AdvReac Type Severity Reaction Status Date / Time adhesive tape Allergy Rash/Hives Verified 12/12/20 14:56 doxycycline Allergy Unknown Verified 12/12/20 14:56 Sulfa (Sulfonamide Allergy Unknown Verified 12/12/20 14:56 Antibiotics) Physical Exam Vitals: Vital Signs Temp Pulse Pulse Resp BP BP Pulse Ox 12/13/20 14:00 98.5 F 57 L 19 98/57 98 12/13/20 08:00 97.8 F 68 18 104/63 97 12/13/20 07:45 18 12/13/20 03:54 98.9 F 12/13/20 01:44 100.5 F H 12/13/20 00:10 100.6 F H 76 15 128/53 95 12/12/20 23:04 18 12/12/20 22:03 99.9 F H 77 18 142/53 97 12/12/20 19:21 68 18 115/75 98 12/12/20 16:30 61 16 120/57 98 12/12/20 16:00 66 18 99/55 93 L Intake and Output 12/13/20 12/13/20 12/13/20 06:59 14:59 22:59 Other: Voiding Method Bedside Commode Bedside Commode # Voids 0 # Bowel Movements 0 Weight 53 kg - Constitutional General appearance: no acute distress - Respiratory Respiratory: bilateral: diminished - Cardiovascular Rhythm: regular Heart sounds: normal: S1, S2 Abnormal Heart Sounds: systolic murmur Results 12/13/20 04:11 12/13/20 04:11 CBC 12/13/20 Range/Units 04:11 WBC 10.47 H (4.50-10.00) X 10*3/uL RBC 3.36 L (4.10-5.20) X 10*6/uL Hgb 10.7 L (12.0-15.0) g/dL Hct 33.0 L (37.2-46.3) % Plt Count 237 (140-440) X 10*3/uL Comprehensive Metabolic Panel 12/13/20 Range/Units 04:11 Sodium 137 (135-145) mmol/L Potassium 3.0 L (3.5-5.5) mmol/L Chloride 97 (96-109) mmol/L Carbon Dioxide 24.5 (21.6-31.8) mmol/L BUN 16.2 (9.0-27.0) mg/dL Creatinine 1.2 (0.6-1.5) mg/dL Glucose 116 H (70-110) mg/dL Calcium 8.6 L (8.7-10.3) mg/dL Current Medications Generic Name Dose Route Start Last Admin Trade Name Freq PRN Reason Stop Dose Admin Acetaminophen 650 mg 12/12/20 23:48 12/13/20 01:48 Acetaminophen Tab 325 Mg Tab PO 650 mg Q6HR PRN Administration Fever and/ or Pain Amiodarone HCl 200 mg 12/13/20 09:00 12/13/20 07:42 Amiodarone 200 Mg Tab PO 200 mg DAILY JOZEF Administration Apixaban 2.5 mg 12/13/20 09:00 12/13/20 07:42 Apixaban 2.5 Mg Tablet PO 2.5 mg BID JOZEF Administration Protocol Aspirin 81 mg 12/13/20 21:00 Aspirin 81 Mg PO HS JOZEF Atorvastatin Calcium 40 mg 12/13/20 09:00 12/13/20 07:43 Atorvastatin 40 Mg Tab PO 40 mg DAILY JOZEF Administration Famotidine 20 mg 12/14/20 09:00 Famotidine 20 Mg Tab PO Q24HR JOZEF Furosemide 40 mg 12/13/20 21:00 Furosemide 10 Mg/Ml 4 Ml Vial IV Q12HR JOZEF Cefepime HCl 2 gm/ Sodium 100 mls @ 25 mls/hr 12/12/20 16:00 12/13/20 15:53 Chloride IVPB 25 mls/hr Q12H JOZEF Administration Isosorbide Mononitrate 15 mg 12/13/20 09:00 12/13/20 08:11 Isosorbide Mononitrate Er 15 Mg Tab PO 15 mg DAILY JOZEF Administration Levothyroxine Sodium 88 mcg 12/13/20 06:30 12/13/20 05:50 Levothyroxine 88 Mcg Tab PO 88 mcg DAILY@0630 JOZEF Administration Metoprolol Tartrate 25 mg 12/13/20 09:00 12/13/20 07:43 Metoprolol Tartrate 25 Mg Tab PO 25 mg BID JOZEF Administration Miscellaneous Information 1 each 12/12/20 14:29 Pneumonia Protocol Utilized 1 Each Misc PO ONCE PRN Per Protocol Miscellaneous Information 1 each 12/13/20 10:29 Potassium Replacement Protocol 1 Each Misc MISCELLANE DAILY PRN Per Protocol Protocol Nitroglycerin 0.4 mg 12/12/20 21:22 Nitroglycerin Sl Tabs 0.4 Mg Tab SUBLINGUAL Q5M PRN Chest Pain Intake and Output 12/13/20 12/13/20 12/13/20 06:59 14:59 22:59 Other: Voiding Method Bedside Commode Bedside Commode # Voids 0 # Bowel Movements 0 Weight 53 kg 12/13/20 04:11 12/13/20 04:11 Assessment and Plan Assessment: Assessment #1 heart failure with preserved ejection fraction exacerbation #2 valvular heart disease with known moderate mitral stenosis and status post transcutaneous aortic valve replacement #3 paroxysmal atrial fibrillation #4 status post hiatal hernia repair #5 multiple comorbid conditions Plan #1 continue the current dose of Lasix IV #2 the patient stated that she is feeling better after the Lasix IV #3 continue monitoring the kidney function and electrolytes #4 recent echo showed normal LV function and described above #5 follow-up with the patient
[2020-12-13] MEDS: ASPIRIN 81 MG PO SCH (22:21)
[2020-12-14] MEDS: CEFEPIME 2 GM in SODIUM CHLORIDE 0.9% 100 ML IVPB SCH (05:26)
[2020-12-14] MEDS: LEVOTHYROXINE 88 MCG TAB PO SCH (05:27)
[2020-12-14] MEDS: METOPROLOL TARTRATE 25 MG TAB PO SCH (07:35)
[2020-12-14] MEDS: FAMOTIDINE 20 MG TAB PO SCH (07:35)
[2020-12-14] MEDS: ATORVASTATIN 40 MG TAB PO SCH (07:35)
[2020-12-14] MEDS: APIXABAN 2.5 MG TABLET PO SCH ×2 (07:36→21:21)
[2020-12-14] MEDS: AMIODARONE 200 MG TAB PO SCH (07:36)
[2020-12-14] MEDS: ISOSORBIDE MONONITRATE ER 15 MG TAB PO SCH (07:37)
[2020-12-14] MEDS: FUROSEMIDE 10 MG/ML 4 ML VIAL IV SCH (07:37)
[2020-12-14 09:45] LABS: Basophils # (A) 0.05 X 10*3/uL (0.00-0.10); Basophils % (A) 0.5 %; Eosinophils % (A) 14.2 %; HGB 12.4 g/dL (12.0-15.0); Lymphocytes # (A) 1.49 X 10*3/uL (0.90-5.00); Lymphocytes % (A) 15.1 %; MCH 31.2 pg (27.0-32.0); MCHC 31.8 g/dL (32.0-37.0); Monocytes # (A) 0.76 X 10*3/uL (0.20-1.00); Monocytes % (A) 7.7 %; Neutrophils # (A) 6.15 X 10*3/uL (1.80-7.70); Neutrophils % (A) 62.2 %; Platelet Count 294 X 10*3/uL (140-440); RBC 3.98 X 10*6/uL (4.10-5.20); RDW 14.1 % (11.5-14.5); WBC 9.88 X 10*3/uL (4.50-10.00)
[2020-12-14 10:12] LABS: Carbon Dioxide 26.2 mmol/L (21.6-31.8); Potassium 3.5 mmol/L (3.5-5.5)
[2020-12-14 10:13] LABS: Anion Gap 15.6 mmol/L (4.00-12.00); BUN/Creat Ratio 14.19 Ratio (12.00-20.00); Blood Urea Nitrogen 18.3 mg/dL (9.0-27.0); Calcium 8.7 mg/dL (8.7-10.3); Magnesium 1.9 mg/dL (1.5-2.4)
--- NOTE | 2020-12-14 10:22 | P.PN ---
Subjective Progress Note Date: 12/14/20 On today's evaluation of 12/14/2020, the patient is coming to see me in follow- up. Doing well. She is on 2 L of oxygen by nasal cannula. The pro calcitonin Level is at 0.32. She became slightly prerenal creatinine came up to 1.3. The patient was being diuresed with IV Lasix. No fever. No chills. White cell count is at 9.8 with a hemoglobin of 12.4. The patient remains on IV cefepime. The patient is on anticoagulation with Eliquis. Objective - Vital Signs Vital signs: Vital Signs Temp 98.5 F 12/14/20 08:00 Pulse 65 12/14/20 08:00 Resp 16 12/14/20 08:00 BP 94/58 12/14/20 08:00 Pulse Ox 98 12/14/20 08:00 Intake & Output 12/13/20 12/14/20 12/14/20 18:59 06:59 18:59 Intake Total 1080 1320 Balance 1080 1320 Weight 53 kg 53 kg Intake: Oral 1080 1320 Other: Voiding Method Bedside Commode Bedside Commode Bedside Commode # Voids 3 # Bowel Movements 1 - Exam EYES: Pupils equal. Conjunctiva normal. Currently on 2 L of oxygen by nasal cannula HEENT: External appearance of nose and ears normal, oral cavity grossly normal. NECK: JVD not raised; masses not palpable. HEART: First and second heart sounds are normal; no edema. LUNGS: Respiratory rate normal; clear to auscultation. ABDOMEN: Soft, nontender, liver spleen not palpable, no masses palpable, PEG tube. PSYCH: Alert and oriented x3; mood and affect normal. 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 LYMPHATICS: No lymph nodes palpable in the axilla and neck - Labs CBC & Chem 7: 12/14/20 05:57 12/14/20 06:45 Labs: Abnormal Lab Results - Last 24 Hours (Table) 12/14/20 12/14/20 Range/Units 05:57 06:45 RBC 3.98 L (4.10-5.20) X 10*6/uL MCV 98.0 H (80.0-97.0) fL MCHC 31.8 L (32.0-37.0) g/dL Eosinophils # 1.40 H (0.04-0.35) X 10*3/uL Anion Gap 15.60 H (4.00-12.00) mmol/L Est GFR (CKD-EPI)AfAm 44.0 L (60.0-200.0) Est GFR (CKD-EPI)NonAf 38.0 L (60.0-200.0) Glucose 113 H (70-110) mg/dL Assessment and Plan Plan: 1 acute hypoxic respiratory failure, shortness of breath on that investigation, rule out aspiration, rule out ongoing pneumonia. Pulmonary embolism is felt to be less likely. Complications related to recent hiatal hernia repair need to be considered including issues like strictures, leaks, fistulas, etc. the patient is calm the chest showed stable bilateral pleural effusions. No evidence of any pulmonary embolism. Early groundglass changes possibly consistent with CHF. The patient was diuresed with IV Lasix and the patient is currently developing a mild prerenal azotemia with a creatinine of 1.3. 2 bilateral pleural effusion left more than right based on previous chest x-rays and previous CT angiogram of the chest that was done in 11/14/2020. No evidence of any pulmonary embolism 3 coronary artery disease with nonocclusive disease post acute non-STEMI back in October 2020. Please refer to the results of the cardiac catheterization 4 history of aortic valve disease post TAVR 5 history of paroxysmal atrial fibrillation current rhythm is sinus, ejection fraction is preserved 6 history of paraesophageal hiatal hernia post surgical repair, still is active in place 7 hypertension 8 hypothyroidism 9 hyperlipidemia 10 acid reflux Plan Obtain computed tomography scan of the chest with contrast, the CAT scan was reviewed and was consistent mainly with CHF. The patient about the pleural effusions some early groundglass changes. The patient would benefit from diuresis. Her condition is stable for now. Discontinue Lasix IV cefepimeto be continued for now Titrate FiO2 to maintain saturation above 90% Check pro calcitonin level 0.32 We'll continue to follow
--- NOTE | 2020-12-14 10:33 | P.PN ---
Progress Note - Text Progress Note Date: 12/14/20 Patient maintained stable. She denies any dysphagia or GERD symptoms. She states her shortness of breath some improvement. On exam vital signs are stable. Abdomen soft. Patient has a previous history of a large hiatal hernia which was repaired. She has no GI symptoms currently. No surgical intervention is planned. She'll continue receive supportive care.
--- NOTE | 2020-12-14 13:04 | P.PN ---
Subjective Progress Note Date: 12/14/20 Principal diagnosis: Shortness of breath The patient is an 85-year-old female patient with paroxysmal atrial fibrillation and valvular heart disease and status post transcutaneous aortic valve replacement and moderate mitral stenosis as well as recent hiatal hernia repair was admitted to the hospital with shortness of breath and she was diagnosed with heart failure exacerbation secondary to diastole dysfunction. She was started on Lasix IV. She was seen this morning. She stated that the shortness of breath has improved significantly. She still requiring some oxygen. She reports no symptoms of chest pain or chest discomfort and no dizziness or lightheadedness or any feeling of heart racing or fluttering or presyncope or syncope. Her pressure has been marginal. The dose of Lasix IV was stopped. I'm going to start him on small dose of Lasix by mouth 20 mg by mouth daily. Beside that and in the light of marginal blood pressure going to stop the isosorbide mononitrate and decrease the dose of metoprolol. Objective - Vital Signs Vital signs: Vital Signs Temp 98.5 F 12/14/20 08:00 Pulse 65 12/14/20 08:00 Resp 16 12/14/20 08:00 BP 94/58 12/14/20 08:00 Pulse Ox 98 12/14/20 08:00 Intake & Output 12/13/20 12/14/20 12/14/20 18:59 06:59 18:59 Intake Total 1080 1320 Balance 1080 1320 Weight 53 kg 53 kg Intake: Oral 1080 1320 Other: Voiding Method Bedside Commode Bedside Commode Bedside Commode # Voids 3 # Bowel Movements 1 - Constitutional General appearance: Present: no acute distress - Respiratory Respiratory: bilateral: diminished - Cardiovascular Rhythm: regular Heart sounds: normal: S1, S2 Abnormal Heart Sounds: Present: systolic murmur - Labs CBC & Chem 7: 12/14/20 05:57 12/14/20 06:45 Labs: Abnormal Lab Results - Last 24 Hours (Table) 12/14/20 12/14/20 Range/Units 05:57 06:45 RBC 3.98 L (4.10-5.20) X 10*6/uL MCV 98.0 H (80.0-97.0) fL MCHC 31.8 L (32.0-37.0) g/dL Eosinophils # 1.40 H (0.04-0.35) X 10*3/uL Anion Gap 15.60 H (4.00-12.00) mmol/L Est GFR (CKD-EPI)AfAm 44.0 L (60.0-200.0) Est GFR (CKD-EPI)NonAf 38.0 L (60.0-200.0) Glucose 113 H (70-110) mg/dL Assessment and Plan Assessment: Assessment #1 heart failure with preserved ejection fraction exacerbation #2 valvular heart disease with known moderate mitral stenosis and status post transcutaneous aortic valve replacement #3 paroxysmal atrial fibrillation #4 status post hiatal hernia repair #5 margin a low blood pressure Plan #1 start the patient on small dose of Lasix by mouth #2 decrease the dose of metoprolol #3 DC oral nitrate
--- NOTE | 2020-12-14 16:16 | P.PN ---
Subjective This is a pleasant 85 years old female with past medical history of proximal Atrial Fibrillation, Coronary Artery Disease , GERD, hiatal hernia status post surgical repair, Hyperlipidemia, hypothyroidism,history of TAVR with aortic valve replacement. She is a patient of Dr. gill Hensley. Patient presents because of dyspnea 2 days associated with coughing and secretions back in her throat but no phlegm. No chest pain. No urinary symptoms. She had some diarrhea but stopped now. Walking with no difficulties. Patient denies smoking, alcohol or illicit drugs. On admission her Vitas looks stable. Her creatinine 0.9 which looks at baseline on GFR is showing third stage chronic kidney disease, d-dimer elevated at 2.02. CTA of the chest showing no pulmonary embolism, bilateral hilar and mediastinal lymphadenopathy and thickened distal esophageal tissue suspicious for recent hiatal hernia repair. Ultrasound of the leg is negative for DVT. EKG showing normal sinus rhythm at [address]-T changes. QTC 487. BNP is elevated at 4730. On admission patient was started on Lasix 40 mg 3 times a day, cefepime, home dose of Eliquis 12/13/2020 Patient dyspnea is better today, her leg swelling is better today and only minimal, therefore her Lasix were lowered from 40 mg 3 times a day down to twice a day. With mild grade fever and leukocytosis may be some mild elements of aspiration pneumonia. Patient is continued on cefepime for now. No surgical intervention. And she kept on home dose of Eliquis 2.5 mg and Pepcid for GI prophylaxis. procalcitonin is mildly elevated at 0.32. And chest x-ray showing bibasilar atelectasis versus early infiltrate. Wound about her bilateral hilar and mediastinal lymphadenopathy with rec ommendation to follow up in 3 months and she agrees with him already on the case 12/14/2020 Patient previous temporary comfortably. No exertional dyspnea. Like edema improved. At the Lasix was discontinued for her acute CHF exacerbation With some elements of aspiration pneumonia which is mild responding to cefepime. I agree with decreasing the dose of cefepime down to 1 g twice a day. she Is on home dose of Eliquis. Other than one she is medically stable. Informed about her hilar and mediastinal lymphadenopathy on CAT scan with recommendation for follow-up in 3 months and she agrees. Risk of cancer explained to her Objective - Vital Signs Vital signs: Vital Signs Temp 98.6 F 12/14/20 14:00 Pulse 58 L 12/14/20 14:00 Resp 16 12/14/20 14:00 BP 91/55 12/14/20 14:00 Pulse Ox 98 12/14/20 14:00 Intake & Output 12/13/20 12/14/20 12/14/20 18:59 06:59 18:59 Intake Total 1080 1320 Balance 1080 1320 Weight 53 kg 53 kg Intake: Oral 1080 1320 Other: Voiding Method Bedside Commode Bedside Commode Bedside Commode # Voids 3 # Bowel Movements 1 - Exam GENERAL: The patient is alert and oriented x3, not in any acute distress. Well developed, well nourished. HEENT: Pupils are round and equally reacting to light. EOMI. No scleral icterus. No conjunctival pallor. Normocephalic, atraumatic. No pharyngeal erythema. No thyromegaly. CARDIOVASCULAR: S1 and S2 present. No murmurs, rubs, or gallops. -PULMONARY: Chest is clear to auscultation, no wheezing. mild bilateral basal precipitation. ABDOMEN: Soft, nontender, nondistended, normoactive bowel sounds. No palpable organomegaly. MUSCULOSKELETAL: No joint swelling or deformity. -EXTREMITIES: No cyanosis, clubbing,. Bilateral pitting edema, significantly improved NEUROLOGICAL: Gross neurological examination did not reveal any focal deficits. SKIN: No rashes. no petechiae. - Labs CBC & Chem 7: 12/14/20 05:57 12/14/20 06:45 Labs: Abnormal Lab Results - Last 24 Hours (Table) 12/14/20 12/14/20 Range/Units 05:57 06:45 RBC 3.98 L (4.10-5.20) X 10*6/uL MCV 98.0 H (80.0-97.0) fL MCHC 31.8 L (32.0-37.0) g/dL Eosinophils # 1.40 H (0.04-0.35) X 10*3/uL Anion Gap 15.60 H (4.00-12.00) mmol/L Est GFR (CKD-EPI)AfAm 44.0 L (60.0-200.0) Est GFR (CKD-EPI)NonAf 38.0 L (60.0-200.0) Glucose 113 H (70-110) mg/dL Assessment and Plan Assessment: Acute on chronic diastolic heart failure, with ejection fraction of 50-55% with moderate mitral stenosis Probably mild aspiration pneumonia Mild Acute hypoxic respiratory failure secondary to above Elevated d-dimer with negative pulmonary embolism on CTA of the chest and DVT per ultrasound of the legs. Bilateral enlarged hilar and mediastinal lymphadenopathy Thickened distal esophagus, could be related to recent repair of hiatal hernia Kidney disease stage III History of aortic valve disease with TAVR Paroxysmal atrial fibrillation on Eliquis, metoprolol and amiodarone Plan: This is a pleasant 85 years old female who presents with CHF DC Lasix Continue with cefepime Continue with Eliquis Follow-up recommendation by interior design principal, trade analyst and general surgery. Needs repeat CAT scan of the chest in 3 months, patient informed. Follow-up with pulmonary as an outpatient Labs and medication were reviewed.. Continue same treatment. Continue with symptomatic treatment. Resume home medication. Monitor lytes and vitals. DVT and GI prophylaxis. Further recommendationsas per clinical course of the patient DVT prophylaxis: Eliquis GI Prophylaxis: Pepcid PT/OT: Pending Prognosis is guarded
[2020-12-14] MEDS: CEFEPIME 1 GM in SODIUM CHLORIDE 0.9% 50 ML IVPB SCH (17:09)
[2020-12-14] MEDS: ASPIRIN 81 MG PO SCH (21:21)
[2020-12-14] MEDS: METOPROLOL TARTRATE 12.5 MG TAB PO SCH (21:21)
[2020-12-15] MEDS: CEFEPIME 1 GM in SODIUM CHLORIDE 0.9% 50 ML IVPB SCH ×2 (05:59→17:26)
[2020-12-15] MEDS: LEVOTHYROXINE 88 MCG TAB PO SCH (06:00)
[2020-12-15] MEDS: METOPROLOL TARTRATE 12.5 MG TAB PO SCH ×2 (08:45→21:20)
[2020-12-15] MEDS: ATORVASTATIN 40 MG TAB PO SCH (08:46)
[2020-12-15] MEDS: APIXABAN 2.5 MG TABLET PO SCH ×2 (08:46→21:54)
[2020-12-15] MEDS: FAMOTIDINE 20 MG TAB PO SCH (08:46)
[2020-12-15] MEDS: AMIODARONE 200 MG TAB PO SCH (08:46)
[2020-12-15] MEDS ORDERED: FUROSEMIDE 20 MG TAB PO SCH (09:00)
--- NOTE | 2020-12-15 12:01 | P.PN ---
Subjective Progress Note Date: 12/15/20 CHIEF COMPLAINT: Shortness of breath HISTORY OF PRESENT ILLNESS: This is an 85-year-old female who presented to the emergency department on 12/12/2020 with complaints of shortness of breath as a transfer from [facility]. Apparently the patient was diagnosed with infiltrate of the left lung and diagnosed with pneumonia started on IV antibiotics. She also has a past medical history including valvular heart disease and is status post aortic valve replacement, and history of atrial fibrillation. She was also recently hospitalized for an acute non-STEMI and had a cardiac catheterization on 11/12/2020 showing mild nonocclusive disease and medical management was recommended. The patient also recently underwent repair of a large hiatal hernia or incarcerated stomach by Dr. Pack to [facility] on 11/07/2020. Patient also has a PEG tube that was placed on 10/22 as well, patient states she does not use it. She states she has been eating well. Denies any difficulty swallowing. Still has a complaint of a cough which is greatest at night and when she is talking. PHYSICAL EXAM: VITAL SIGNS: Reviewed GENERAL: Well-developed in no acute distress. HEENT: No sclera icterus. Extraocular movements grossly intact. Moist buccal mucosa. Head is atraumatic, normocephalic. Hears conversational speech. No nasal drainage. NECK: Supple without lymphadenopathy. CHEST: Non-labored respirations and equal bilateral excursions. CARDIOVASCULAR: Palpable 2+ radial pulses. ABDOMEN: Soft. Nondistended. Nontender. PEG tube in place. MUSCULOSKELETAL: No clubbing or cyanosis. NEUROLOGIC: No focal or lateralizing signs. Cranial nerves II through XII g rossly intact. PSYCH: Appropriate affect. Alert and oriented to person, place and time. SKIN: Well perfused. Good skin turgor. ASSESSMENT: 1. Recent history of large hiatal hernia status post repair and PEG tube placement 11/07/2020 2. Shortness of breath 3. Bilateral pleural effusion 4. History of atrial fibrillation 5. History of coronary artery disease status post cardiac valve replacement, recent heart catheterization 6. History of GERD 7. History hyperlipidemia 8. Thyroid disorder PLAN: 1. Will add Protonix 40 mg daily 2. Continue medical management 3. Continue diet as tolerated 4. There is no plans for any surgical intervention The impression and plan of care has been dictated as directed. Dr. Villar I performed a history and examination of this patient, discussed the same with the dictator. I agree with the dictator's note ,documented as a scribe. Any additional findings or plans will be noted. Objective - Vital Signs Vital signs: Vital Signs Temp 98.4 F 12/15/20 08:00 Pulse 63 12/15/20 08:00 Resp 15 12/15/20 08:00 BP 103/53 12/15/20 08:00 Pulse Ox 93 L 12/15/20 08:00 Intake & Output 12/14/20 12/15/20 12/15/20 18:59 06:59 18:59 Intake Total 1080 1320 Balance 1080 1320 Weight 53 kg 49.5 kg Intake: Oral 1080 1320 Other: Voiding Method Bedside Commode Bedside Commode # Voids 3 # Bowel Movements 1 - Labs CBC & Chem 7: 12/14/20 05:57 12/14/20 06:45
--- NOTE | 2020-12-15 12:49 | P.PN ---
Subjective Progress Note Date: 12/15/20 HISTORY OF PRESENT ILLNESS: This is a pleasant 85-year-old female patient who was seen by our service recently with paroxysmal atrial fibrillation currently on oral anticoagulation as well as valvular heart disease and status post transcutaneous aortic valve replacement as well as multiple comorbid conditions was admitted to the hospital for further evaluation of increasing shortness of breath. The patient is known to our service from recent hospital admission with a chest discomfort and at that point she underwent a heart catheterization which revealed mild nonobstructive coronary artery disease. She underwent an echocardiogram at that point and that revealed normal left ventricular systolic function with evidence of normally functioning transcatheter valve and evidence of moderate mitral stenosis. The patient was discharged from the hospital in stable medical con dition but she presented again because of dyspnea for the last few days associated with cough. No symptoms of chest pain or chest discomfort. No symptoms of fever or chills. No dizziness or lightheadedness and no feeling of heart racing or fluttering or presyncope or syncope. The chest x-ray showed findings consistent with heart failure and also bilateral pleural effusion. The patient was started on Lasix and she was seen today. She stated that she is feeling better. The shortness of breath has improved. She stated that she did have mild bilateral lower extremity edema and that also has improved. The EKG showed sinus rhythm without any significant ST or T-wave abnormalities. Her NT proBNP came in to be elevated. Pulmonary team is also on the case regarding another etiology for the shortness of breath. Please note that the patient underwent recently a hiatal hernia repair. 12/14/2020 She was seen this morning. She stated that the shortness of breath has improved significantly. She still requiring some oxygen. She reports no symptoms of chest pain or chest discomfort and no dizziness or lightheadedness or any feeling of heart racing or fluttering or presyncope or syncope. Her pressure has been marginal. The dose of Lasix IV was stopped. I'm going to start him on small dose of Lasix by mouth 20 mg by mouth daily. Beside that and in the light of marginal blood pressure going to stop the isosorbide mononitrate and decrease the dose of metoprolol. 12/15/2020 Patient examined this morning at the bedside. Patient denies chest pain or pressure. She reports shortness of breath when her oxygen is removed. She reports a nonproductive cough. Blood pressure 103/53. Her imdur was DC yesterday and her metoprolol was decreased. PHYSICAL EXAM: VITAL SIGNS: Reviewed. GENERAL: Well-developed in no acute distress. NECK: Supple. No JVD or thyromegaly LUNGS: Respirations even and unlabored. Lungs diminished with rales noted to right lower base. HEART: Regular rate and rhythm. S1 and S2 heard. Systolic murmur noted EXTREMITIES: Normal range of motion. No clubbing or cyanosis. Peripheral pulses intact. No lower extremity edema ASSESSMENT: Acute on chronic diastolic congestive heart failure Valvular heart disease with known moderate mitral stenosis and also status post TAVR Paroxysmal atrial fibrillation Status post hiatal hernia repair Marginal hypotension PLAN: Continue current cardiac medications Monitor blood pressure Pulmonary following Further recommendations pending patient course Nurse practitioner note has been reviewed by physician. Signing provider agrees with the documented findings, assessment, and plan of care. Objective - Vital Signs Vital signs: Vital Signs Temp 98.4 F 12/15/20 08:00 Pulse 63 12/15/20 08:00 Resp 15 12/15/20 08:00 BP 103/53 12/15/20 08:00 Pulse Ox 93 L 12/15/20 08:00 Intake & Output 12/14/20 12/15/20 12/15/20 18:59 06:59 18:59 Intake Total 1080 1320 Balance 1080 1320 Weight 53 kg 49.5 kg Intake: Oral 1080 1320 Other: Voiding Method Bedside Commode Bedside Commode # Voids 3 # Bowel Movements 1 - Labs CBC & Chem 7: 12/14/20 05:57 12/14/20 06:45
--- NOTE | 2020-12-15 15:37 | XR ---
EXAMINATION TYPE: XR chest 2V DATE OF EXAM: 12/15/2020 COMPARISON: 12/13/2020 HISTORY: Shortness of breath TECHNIQUE: Frontal and lateral views of the chest are obtained. FINDINGS: Scattered senescent parenchymal changes noted. Hyperinflation compatible with COPD. Much improved pulmonary venous congestion with small residual pleural effusions noted. Mediastinal structures are stable and grossly unremarkable. No evidence for hilar prominence. Degenerative changes dorsal spine. IMPRESSION: 1. Improved features of congestive failure.
--- NOTE | 2020-12-15 15:53 | P.PN ---
Subjective Progress Note Date: 12/15/20 Principal diagnosis: Acute hypoxic respiratory failure secondary to aspiration pneumonia and suspect acute diastolic congestive heart failure On today's evaluation of 12/14/2020, the patient is coming to see me in follow- up. Doing well. She is on 2 L of oxygen by nasal cannula. The pro calcitonin Level is at 0.32. She became slightly prerenal creatinine came up to 1.3. The patient was being diuresed with IV Lasix. No fever. No chills. White cell count is at 9.8 with a hemoglobin of 12.4. The patient remains on IV cefepime. The patient is on anticoagulation with Eliquis. Patient was reevaluated today on 12/15/20, remains on 2 L nasal cannula, O2 sats is 93%, patient is feeling better, breathing easier, she is presently on antibiotics and she is also on diuretics and she was felt to have possible acute diastolic congestive heart failure. And that is being addressed by cardiology. Her CBC is relatively unremarkable. Electrolytes are normal renal profile s howed a BUN of 18 and creatinine of 1.3. Pro-calcitonin level is 0.32, however her BNP level is significantly elevated over 4700. Patient remains on cefepime, she is also on amiodarone, Eliquis, Lasix 20 mg twice a day, follow-up chest x- ray is showing improvement features of congestive heart failure but nonetheless she continues to have small bilateral effusions. Even the suspected infiltrate in the right midlung seems to be better on follow-up chest x-ray today. Objective - Vital Signs Vital signs: Vital Signs Temp 98.4 F 12/15/20 08:00 Pulse 63 12/15/20 08:00 Resp 15 12/15/20 08:00 BP 103/53 12/15/20 08:00 Pulse Ox 93 L 12/15/20 08:00 Intake & Output 12/14/20 12/15/20 12/15/20 18:59 06:59 18:59 Intake Total 1080 1320 Balance 1080 1320 Weight 53 kg 49.5 kg Intake: Oral 1080 1320 Other: Voiding Method Bedside Commode Bedside Commode # Voids 3 # Bowel Movements 1 - Exam General: Revealed a 85-year-old female in no distress. On 2 L nasal cannula. EYES: Pupils equal. Conjunctiva normal. HEENT: External appearance of nose and ears normal, oral cavity grossly normal. NECK: JVD not raised; masses not palpable. HEART: Normal S1 and S2, no S3 gallop. LUNGS: Symmetrical chest expansion fine crackles at the bases. ABDOMEN: Soft, nontender, liver spleen not palpable, no masses palpable, PEG tube. MUSCULOSKELETAL: No deformities noted limitation range of motion. NEUROLOGICAL: Alert and oriented 3 no gross focal deficits. Psychiatric: Normal mood affect and normal mental status examination. Came: No rashes. - Labs CBC & Chem 7: 12/14/20 05:57 12/14/20 06:45 Assessment and Plan Assessment: Impression: Acute hypoxic respiratory failure secondary to aspiration pneumonia and suspect mild component of acute diastolic congestive heart failure. Bilateral pleural effusions secondary to CHF. Coronary artery disease and previous non-ST elevation myocardial infarction in October 2020. History of aortic valve disease post T aVR. Paroxysmal atrial fibrillation. Benign essential hypertension. History of paraesophageal hiatal hernia requiring surgical repair. History of hypothyroidism. Hyperlipidemia. Recommendation: Reviewed and discussed chest x-ray findings with the patient. Continue diuretics. Continue bronchodilators and antibiotics for now. Titrate FiO2 down and addressed accordingly based on the O2 saturation. We'll continue to follow. Time with Patient: Less than 30
--- NOTE | 2020-12-15 19:36 | P.PN ---
Progress Note - Text Progress Note Date: 12/15/20 This is a pleasant 85 years old female with past medical history of proximal Atrial Fibrillation, Coronary Artery Disease , GERD, hiatal hernia status post surgical repair, Hyperlipidemia, hypothyroidism,history of TAVR with aortic valve replacement. She is a patient of Dr. gill Hensley. Patient presents because of dyspnea 2 days associated with coughing and secretions back in her throat but no phlegm. No chest pain. No urinary symptoms. She had some diarrhea but stopped now. Walking with no difficulties. Patient denies smoking, alcohol or illicit drugs. On admission her Vitas looks stable. Her creatinine 0.9 which looks at baseline on GFR is showing third stage chronic kidney disease, d-dimer elevated at 2.02. CTA of the chest showing no pulmonary embolism, bilateral hilar and mediastinal lymphadenopathy and thickened distal esophageal tissue suspicious for recent hiatal hernia repair. Ultrasound of the leg is negative for DVT. EKG showing normal sinus rhythm at [address]-T changes. QTC 487. BNP is elevated at 4730. On admission patient was started on Lasix 40 mg 3 times a day, cefepime, home dose of Eliquis 12/13/2020 Patient dyspnea is better today, her leg swelling is better today and only minimal, therefore her Lasix were lowered from 40 mg 3 times a day down to twice a day. With mild grade fever and leukocytosis may be some mild elements of aspiration pneumonia. Patient is continued on cefepime for now. No surgical intervention. And she kept on home dose of Eliquis 2.5 mg and Pepcid for GI prophylaxis. procalcitonin is mildly elevated at 0.32. And chest x-ray showing bibasilar atelectasis versus early infiltrate. Wound about her bilateral hilar and mediastinal lymphadenopathy with recommendation to follow up in 3 months and she agrees with him already on the case 12/14/2020 Patient previous temporary comfortably. No exertional dyspnea. Like edema improved. At the Lasix was discontinued for her acute CHF exacerbation With some elements of aspiration pneumonia which is mild responding to cefepime. I agree with decreasing the dose of cefepime down to 1 g twice a day. she Is on home dose of Eliquis. Other than one she is medically stable. Informed about her hilar and mediastinal lymphadenopathy on CAT scan with recommendation for follow-up in 3 months and she agrees. Risk of cancer explained to her 12/15/2020: Patient with up to the bathroom. Oral intake fair No edema. A bit tired. Review of systems: Was done for constitutional, cardiovascular, GI, pulmonary. relevant finding as above Active Medications Acetaminophen (Acetaminophen Tab 325 Mg Tab) 650 mg PO Q6HR PRN PRN Reason: Fever and/ or Pain Last Admin: 12/13/20 01:48 Dose: 650 mg Documented by: Amiodarone HCl (Amiodarone 200 Mg Tab) 200 mg PO DAILY [facility] Last Admin: 12/15/20 08:46 Dose: 200 mg Documented by: Apixaban (Apixaban 2.5 Mg Tablet) 2.5 mg PO BID [facility]; Protocol Last Admin: 12/15/20 08:46 Dose: 2.5 mg Documented by: Aspirin (Aspirin 81 Mg) 81 mg PO HS [facility] Last Admin: 12/14/20 21:21 Dose: 81 mg Documented by: Atorvastatin Calcium (Atorvastatin 40 Mg Tab) 40 mg PO DAILY [facility] Last Admin: 12/15/20 08:46 Dose: 40 mg Documented by: Furosemide (Furosemide 20 Mg Tab) 20 mg PO BID [facility] Cefepime HCl 1 gm/ Sodium (Chloride) 50 mls @ 12.5 mls/hr IVPB Q12H [facility] Last Admin: 12/15/20 17:26 Dose: 12.5 mls/hr Documented by: Levothyroxine Sodium (Levothyroxine 88 Mcg Tab) 88 mcg PO DAILY@0630 [facility] Last Admin: 12/15/20 06:00 Dose: 88 mcg Documented by: Metoprolol Tartrate (Metoprolol Tartrate 12.5 Mg Tab) 12.5 mg PO BID [facility] Last Admin: 12/15/20 08:45 Dose: 12.5 mg Documented by: Miscellaneous Information (Pneumonia Protocol Utilized 1 Each Misc) 1 each PO ONCE PRN PRN Reason: Per Protocol Miscellaneous Information (Potassium Replacement Protocol 1 Each Misc) 1 each MISCELLANE DAILY PRN; Protocol PRN Reason: Per Protocol Nitroglycerin (Nitroglycerin Sl Tabs 0.4 Mg Tab) 0.4 mg SUBLINGUAL Q5M PRN PRN Reason: Chest Pain Pantoprazole Sodium (Pantoprazole 40 Mg Tablet) 40 mg PO [id number] On examination: VITAL SIGNS: 98.6, 66, 16, 103/57, 91% on 2 L GENERAL APPEARANCE: Sitting up, awake, comfortable HEENT: Normal external appearance of nose and ear. Oral cavity normal EYES: Pupils equal. Conjunctiva normal. NECK: JVD not raised. Mass not palpable. RESPIRATORY: Respiratory effort normal. Lungs clear to auscultation. CARDIOVASCULAR: First and second sounds normal. No edema. ABDOMEN: Soft. Liver and spleen not palpable. No tenderness. No mass palpable. PSYCHIATRY: Alert and oriented x3. Mood and affect normal. Investigations: Chest x-ray [December 15]: Improved Venous Doppler ultrasound lower extremity bilateral: Negative for DVT Chest CTA: No PE. Pulmonary edema. Mediastinal hilar lymphadenopathy. Assessment and plan: -Acute hypoxic respiratory failure secondary to aspiration pneumonia and possible CHF Currently on 2 L of nasal cannula -Acute on chronic congestive heart exacerbation and started dysfunction: Improved Lasix 20 mg twice a day -Bilateral pleural effusion secondary to CHF Received diuretics -Aortic valve disease status post,TAVR -Paroxysmal atrial fibrillation Lopressor 12.5 by mouth twice a day. Eliquis 2.5 by mouth twice a day -Essential hypertension Lopressor 12.5 by mouth twice a day -Hypothyroidism Synthroid 88 g a day -Hyperlipidemia Lipitor 40 mg a day Overall patient's feeling better. Oral Lasix. Watch for 24 hours. Hopefully discharge tomorrow.
[2020-12-15] MEDS: ASPIRIN 81 MG PO SCH (21:53)
[2020-12-15] MEDS: FUROSEMIDE 20 MG TAB PO SCH (21:54)
[2020-12-16] MEDS: CEFEPIME 1 GM in SODIUM CHLORIDE 0.9% 50 ML IVPB SCH (06:30)
[2020-12-16] MEDS: LEVOTHYROXINE 88 MCG TAB PO SCH (06:31)
[2020-12-16] MEDS ORDERED: PANTOPRAZOLE 40 MG TABLET PO SCH (07:30)
[2020-12-16] MEDS: METOPROLOL TARTRATE 12.5 MG TAB PO SCH (08:00)
--- NOTE | 2020-12-16 08:00 | XR ---
EXAMINATION TYPE: XR chest 1V portable DATE OF EXAM: 12/16/2020 CLINICAL HISTORY: Difficulty breathing progress study. TECHNIQUE: Single AP portable upright view of the chest is obtained. COMPARISON: Chest x-ray from one day earlier and older studies. FINDINGS: Chronic emphysematous change with persistent small to tiny left pleural effusion and assoc iated left basilar atelectasis and/or infiltrate. Stable mild cardiomegaly with stent graft in the ao rtic root and mild bilateral interstitial edema. Improved tiny right pleural effusion. The osseous st ructures remain demineralized. IMPRESSION: Persistent mild cardiomegaly and mild bilateral interstitial edema with small to tiny lef t pleural effusion consistent with CHF exacerbation. Possible slightly improved small to tiny right p leural effusion.
[2020-12-16] MEDS: APIXABAN 2.5 MG TABLET PO SCH (08:01)
[2020-12-16] MEDS: FUROSEMIDE 20 MG TAB PO SCH (08:01)
[2020-12-16] MEDS: ATORVASTATIN 40 MG TAB PO SCH (08:01)
[2020-12-16] MEDS: AMIODARONE 200 MG TAB PO SCH (08:01)
[2020-12-16 08:34] VITALS: BP 103/59; PULSE 69; TEMP 98
[2020-12-16 09:28] LABS: Basophils # (A) 0.06 X 10*3/uL (0.00-0.10); Basophils % (A) 0.7 %; Eosinophils # (A) 0.94 X 10*3/uL (0.04-0.35); Eosinophils % (A) 11.6 %; HCT 36.1 % (37.2-46.3); HGB 11.4 g/dL (12.0-15.0); Lymphocytes # (A) 1.19 X 10*3/uL (0.90-5.00); Lymphocytes % (A) 14.7 %; MCH 30.6 pg (27.0-32.0); MCHC 31.6 g/dL (32.0-37.0); Mean Platelet Volume 10.8 fL (9.5-12.2); Monocytes # (A) 0.67 X 10*3/uL (0.20-1.00); Monocytes % (A) 8.3 %; Neutrophils # (A) 5.19 X 10*3/uL (1.80-7.70); Platelet Count 306 X 10*3/uL (140-440); RBC 3.72 X 10*6/uL (4.10-5.20); RDW 13.8 % (11.5-14.5); WBC 8.11 X 10*3/uL (4.50-10.00)
[2020-12-16 10:07] VITALS: RESP 16
[2020-12-16 10:27] LABS: African American GFR (CKD) 45.3 (60.0-200.0); Albumin 3.4 g/dL (3.8-4.9); Albumin/Globulin Ratio 1.31 (1.60-3.17); Anion Gap 12.5 mmol/L (4.00-12.00); BUN/Creat Ratio 15.63 Ratio (12.00-20.00); Blood Urea Nitrogen 19.7 mg/dL (9.0-27.0); Calcium 8.9 mg/dL (8.7-10.3); Carbon Dioxide 28.2 mmol/L (21.6-31.8); Globulin 2.6 g/dL (1.6-3.3); Non-African American GFR(CKD) 39.1 (60.0-200.0); Potassium 3.5 mmol/L (3.5-5.5); Total Bilirubin 0.5 mg/dL (0.30-1.20)
--- NOTE | 2020-12-16 11:01 | P.PN ---
Subjective Progress Note Date: 12/16/20 HISTORY OF PRESENT ILLNESS: This is a pleasant 85-year-old female patient who was seen by our service recently with paroxysmal atrial fibrillation currently on oral anticoagulation as well as valvular heart disease and status post transcutaneous aortic valve replacement as well as multiple comorbid conditions was admitted to the hospital for further evaluation of increasing shortness of breath. The patient is known to our service from recent hospital admission with a chest discomfort and at that point she underwent a heart catheterization which revealed mild nonobstructive coronary artery disease. She underwent an echocardiogram at that point and that revealed normal left ventricular systolic function with evidence of normally functioning transcatheter valve and evidence of moderate mitral stenosis. The patient was discharged from the hospital in stable medical con dition but she presented again because of dyspnea for the last few days associated with cough. No symptoms of chest pain or chest discomfort. No symptoms of fever or chills. No dizziness or lightheadedness and no feeling of heart racing or fluttering or presyncope or syncope. The chest x-ray showed findings consistent with heart failure and also bilateral pleural effusion. The patient was started on Lasix and she was seen today. She stated that she is feeling better. The shortness of breath has improved. She stated that she did have mild bilateral lower extremity edema and that also has improved. The EKG showed sinus rhythm without any significant ST or T-wave abnormalities. Her NT proBNP came in to be elevated. Pulmonary team is also on the case regarding another etiology for the shortness of breath. Please note that the patient underwent recently a hiatal hernia repair. 12/14/2020 She was seen this morning. She stated that the shortness of breath has improved significantly. She still requiring some oxygen. She reports no symptoms of chest pain or chest discomfort and no dizziness or lightheadedness or any feeling of heart racing or fluttering or presyncope or syncope. Her pressure has been marginal. The dose of Lasix IV was stopped. I'm going to start him on small dose of Lasix by mouth 20 mg by mouth daily. Beside that and in the light of marginal blood pressure going to stop the isosorbide mononitrate and decrease the dose of metoprolol. 12/15/2020 Patient examined this morning at the bedside. Patient denies chest pain or pressure. She reports shortness of breath when her oxygen is removed. She reports a nonproductive cough. Blood pressure 103/53. Her imdur was DC yesterday and her metoprolol was decreased. 12/16/2020 Patient examined this morning at the bedside. Patient denies chest pain or pressure. She currently denies shortness of breath. She is on room air with oxygen saturations greater then 92%. Chest x-ray this morning reveals persistent mild degree likely and mild bilateral interstitial edema with small to tiny left pleural effusion consistent with CHF exacerbation. Slightly improved small to tiny right pleural effusion. Patient's blood pressure today 103/59. PHYSICAL EXAM: VITAL SIGNS: Reviewed. GENERAL: Well-developed in no acute distress. NECK: Supple. No JVD or thyromegaly LUNGS: Respirations even and unlabored. Lungs diminished with rales noted to right lower base. HEART: Regular rate and rhythm. S1 and S2 heard. Systolic murmur noted EXTREMITIES: Normal range of motion. No clubbing or cyanosis. Peripheral pulses intact. No lower extremity edema ASSESSMENT: Acute on chronic diastolic congestive heart failure Valvular heart disease with known moderate mitral stenosis and also status post TAVR Paroxysmal atrial fibrillation Status post hiatal hernia repair Marginal hypotension PLAN: Continue current cardiac medications Patient is currently stable from a cardiac standpoint. We will follow on an as- needed basis. Nurse practitioner note has been reviewed by physician. Signing provider agrees with the documented findings, assessment, and plan of care. Objective - Vital Signs Vital signs: Vital Signs Temp 98 F 12/16/20 08:00 Pulse 69 12/16/20 08:00 Resp 16 12/16/20 08:00 BP 103/59 12/16/20 08:00 Pulse Ox 96 12/16/20 08:00 Intake & Output 12/15/20 12/16/20 12/16/20 18:59 06:59 18:59 Intake Total 530 Balance 530 Weight 50 kg Intake: Intake, IV Titration 50 Amount Cefepime 1 gm In Sodium 50 Chloride 0.9% 50 ml @ 12. 5 mls/hr IVPB Q[facility]H [facility] Rx #:[id number] Oral 480 Other: Voiding Method Bedside Commode # Voids 3 1 # Bowel Movements 1 - Labs CBC & Chem 7: 12/16/20 06:13 12/16/20 06:13 Labs: Abnormal Lab Results - Last 24 Hours (Table) 12/16/20 12/16/20 Range/Units 06:13 06:13 RBC 3.72 L (4.10-5.20) X 10*6/uL Hgb 11.4 L (12.0-15.0) g/dL Hct 36.1 L (37.2-46.3) % MCHC 31.6 L (32.0-37.0) g/dL Immature Gran # 0.06 H (0.00-0.04) X 10*3/uL Eosinophils # 0.94 H (0.04-0.35) X 10*3/uL Chloride 95 L (96-109) mmol/L Anion Gap 12.50 H (4.00-12.00) mmol/L Est GFR (CKD-EPI)AfAm 45.3 L (60.0-200.0) Est GFR (CKD-EPI)NonAf 39.1 L (60.0-200.0) AST 71 H (13-35) U/L ALT 79 H (8-44) U/L Alkaline Phosphatase 134 H (41-126) U/L Total Protein 6.0 L (6.2-8.2) g/dL Albumin 3.4 L (3.8-4.9) g/dL Albumin/Globulin Ratio 1.31 L (1.60-3.17) g/dL
[2020-12-16] MEDS: POTASSIUM CHLORIDE ER 20 MEQ TAB.ER PO SCH (11:14)
--- NOTE | 2020-12-16 14:56 | P.PN ---
Subjective CHIEF COMPLAINT: Shortness of breath HISTORY OF PRESENT ILLNESS: This is an 85-year-old female who presented to the emergency department on 12/12/2020 with complaints of shortness of breath as a transfer from [facility]. Apparently the patient was diagnosed with infiltrate of the left lung and diagnosed with pneumonia started on IV antibiotics. She also has a past medical history including valvular heart disease and is status post aortic valve replacement, and history of atrial fibrillation. She was also recently hospitalized for an acute non-STEMI and had a cardiac catheterization on 11/12/2020 showing mild nonocclusive disease and medical management was recommended. The patient also recently underwent repair of a large hiatal hernia or incarcerated stomach by Dr. Pack to [facility] on 11/07/2020. Patient also has a PEG tube that was placed on 11/07/2020 as well, patient states she does not use it. She states she has been eating well. Denies any difficulty swallowing. Cough and shortness of breath have been improving. Plan for discharge today. PHYSICAL EXAM: VITAL SIGNS: Reviewed GENERAL: Well-developed in no acute distress. HEENT: No sclera icterus. Extraocular movements grossly intact. Moist buccal mucosa. Head is atraumatic, normocephalic. Hears conversational speech. No nasal drainage. NECK: Supple without lymphadenopathy. CHEST: Non-labored respirations and equal bilateral excursions. CARDIOVASCULAR: Palpable 2+ radial pulses. ABDOMEN: Soft. Nondistended. Nontender. PEG tube in place. MUSCULOSKELETAL: No clubbing or cyanosis. NEUROLOGIC: No focal or lateralizing signs. Cranial nerves II through XII grossly intact. PSYCH: Appropriate affect. Alert and oriented to person, place and time. SKIN: Well perfused. Good skin turgor. ASSESSMENT: 1. Recent history of large hiatal hernia status post repair and PEG tube placement 11/07/2020 2. Shortness of breath 3. Bilateral pleural effusion 4. History of atrial fibrillation 5. History of coronary artery disease status post cardiac valve replacement, recent heart catheterization 6. History of GERD 7. History hyperlipidemia 8. Thyroid disorder PLAN: 1. Continue Omeprazole outpatient as previously prescribed 2. Continue medical management 3. Continue diet as tolerated 4. There is no plans for any surgical intervention Thank You for this consultation, we will sign off at this time. The impression and plan of care has been dictated as directed. Dr. Villar I performed a history and examination of this patient, discussed the same with the dictator. I agree with the dictator's note ,documented as a scribe. Any additional findings or plans will be noted. Objective - Vital Signs Vital signs: Vital Signs Temp 98 F 12/16/20 08:00 Pulse 69 12/16/20 08:00 Resp 16 12/16/20 08:00 BP 103/59 12/16/20 08:00 Pulse Ox 96 12/16/20 08:00 Intake & Output 12/15/20 12/16/20 12/16/20 18:59 06:59 18:59 Intake Total 530 Balance 530 Weight 50 kg Intake: Intake, IV Titration 50 Amount Cefepime 1 gm In Sodium 50 Chloride 0.9% 50 ml @ 12. 5 mls/hr IVPB Q12H [facility] Rx #:[id number] Oral 480 Other: Voiding Method Bedside Commode # Voids 3 1 # Bowel Movements 1 - Labs CBC & Chem 7: 12/16/20 06:13 12/16/20 06:13 Labs: Abnormal Lab Results - Last 24 Hours (Table) 12/16/20 12/16/20 Range/Units 06:13 06:13 RBC 3.72 L (4.10-5.20) X 10*6/uL Hgb 11.4 L (12.0-15.0) g/dL Hct 36.1 L (37.2-46.3) % MCHC 31.6 L (32.0-37.0) g/dL Immature Gran # 0.06 H (0.00-0.04) X 10*3/uL Eosinophils # 0.94 H (0.04-0.35) X 10*3/uL Chloride 95 L (96-109) mmol/L Anion Gap 12.50 H (4.00-12.00) mmol/L Est GFR (CKD-EPI)AfAm 45.3 L (60.0-200.0) Est GFR (CKD-EPI)NonAf 39.1 L (60.0-200.0) AST 71 H (13-35) U/L ALT 79 H (8-44) U/L Alkaline Phosphatase 134 H (41-126) U/L Total Protein 6.0 L (6.2-8.2) g/dL Albumin 3.4 L (3.8-4.9) g/dL Albumin/Globulin Ratio 1.31 L (1.60-3.17) g/dL
--- NOTE | 2020-12-16 15:26 | P.PN ---
Subjective Progress Note Date: 12/16/20 Principal diagnosis: Dyspnea, hypoxia On 12/16/2020 patient seen in follow-up on medical surgical floor. She is awake and alert, she is breathing comfortably, she is currently on room air, pulse ox is 96%, she is afebrile, breathing is nonlabored. Her coughing has improved, he has had no fever or chills. Her follow-up chest x-ray today showing persistent mild cardiomegaly and mild bilateral interstitial edema with small to tiny left pleural effusion, and there is slight improvement to the right pleural effusion. Patient continues on oral Lasix 20 mg twice daily. Today's labs have been reviewed, her white blood cell count is 8.11, hemoglobin is 11.4, sodium is 136, potassium is 3.5, chloride is 95, BUN is 19, creatinine is 1.3. Pro calcitonin level was 0.32, no clear evidence of pneumonia, we'll discontinue cefepime Objective - Vital Signs Vital signs: Vital Signs Temp 98 F 12/16/20 08:00 Pulse 69 12/16/20 08:00 Resp 16 12/16/20 08:00 BP 103/59 12/16/20 08:00 Pulse Ox 96 12/16/20 08:00 Intake & Output 12/15/20 12/16/20 12/16/20 18:59 06:59 18:59 Intake Total 530 Balance 530 Weight 50 kg Intake: Intake, IV Titration 50 Amount Cefepime 1 gm In Sodium 50 Chloride 0.9% 50 ml @ 12. 5 mls/hr IVPB Q12H [facility] Rx #:[id number] Oral 480 Other: Voiding Method Bedside Commode # Voids 3 1 # Bowel Movements 1 - Exam GENERAL EXAM: Alert, pleasant, 85-year-old white female, room air pulse ox is 96% comfortable in no apparent distress. HEAD: Normocephalic/atraumatic. EYES: Normal reaction of pupils, equal size. Conjunctiva pink, sclera white. NOSE: Clear with pink turbinates. THROAT: No erythema or exudates. NECK: No masses, no JVD, no thyroid enlargement, no adenopathy. CHEST: No chest wall deformity. Symmetrical expansion. LUNGS: Equal air entry with basilar crackles CVS: Regular rate and rhythm, normal S1 and S2, no gallops, no murmurs, no rubs ABDOMEN: Soft, nontender. No hepatosplenomegaly, normal bowel sounds, no guarding or rigidity. EXTREMITIES: No clubbing, no edema, no cyanosis, 2+ pulses and upper and lower extremities. MUSCULOSKELETAL: Muscle strength and tone normal. SPINE: No scoliosis or deformity SKIN: No rashes CENTRAL NERVOUS SYSTEM: Alert and oriented -3. No focal deficits, tone is normal in all 4 extremities. PSYCHIATRIC: Alert and oriented -3. Appropriate affect. Intact judgment and insight. - Labs CBC & Chem 7: 12/16/20 06:13 12/16/20 06:13 Labs: Abnormal Lab Results - Last 24 Hours (Table) 12/16/20 12/16/20 Range/Units 06:13 06:13 RBC 3.72 L (4.10-5.20) X 10*6/uL Hgb 11.4 L (12.0-15.0) g/dL Hct 36.1 L (37.2-46.3) % MCHC 31.6 L (32.0-37.0) g/dL Immature Gran # 0.06 H (0.00-0.04) X 10*3/uL Eosinophils # 0.94 H (0.04-0.35) X 10*3/uL Chloride 95 L (96-109) mmol/L Anion Gap 12.50 H (4.00-12.00) mmol/L Est GFR (CKD-EPI)AfAm 45.3 L (60.0-200.0) Est GFR (CKD-EPI)NonAf 39.1 L (60.0-200.0) AST 71 H (13-35) U/L ALT 79 H (8-44) U/L Alkaline Phosphatase 134 H (41-126) U/L Total Protein 6.0 L (6.2-8.2) g/dL Albumin 3.4 L (3.8-4.9) g/dL Albumin/Globulin Ratio 1.31 L (1.60-3.17) g/dL Assessment and Plan Plan: Assessment: #1. Acute hypoxic respiratory failure secondary to acute diastolic congestive heart failure, aspiration pneumonia was initially considered, however there was no clear evidence of aspiration, pro-calcitonin level was negative, patient was initially treated with cefepime, which will be discontinued today. Patient's breathing improved with diuretics #2. Bilateral pleural effusions secondary to diastolic CHF #3. Coronary artery disease and previous history of non-ST elevated myocardial infarction in October 2020 #4. History of aortic valve disease, status post TAVR #5. Paroxysmal A. fib #6. Benign essential hypertension #7. History of poorly esophageal hiatal hernia requiring surgical repair #8. History of hypothyroidism #9. Hyperlipidemia Plan: Continue oral diuretics We'll discontinue cefepime, no clear evidence of infectious process, although possibility of aspiration pneumonitis is possible, she has received a few days of cefepime No fever or chills, no leukocytosis Her breathing has improved Continue oral diuretics No need to continue antibiotics She is on room air Increase activity as tolerated Outpatient follow-up with Dr. Choudhury in the office in 7-10 days Stable for discharge home today if cleared by cardiology I performed a history & physical examination of the patient and discussed their management with my nurse practitioner, Effie Deluca. I reviewed the nurse practitioner's note and agree with the documented findings and plan of care. Lung sounds are positive for clear breath sounds throughout the lung gardner. The findings and the impression was discussed with the patient. I attest to the documentation by the nurse practitioner. Time with Patient: Less than 30
--- NOTE | 2020-12-16 18:43 | P.DS ---
Providers Date of admission: 12/12/20 14:31 Expected date of discharge: 12/16/20 Attending physician: Zack Ruiz Consults: 12/12/20 14:29 Consult Physician Routine Consulting Provider: Adriel Choudhury Consult Reason/Comments: dyspnea Do you want consulting provider notified?: Yes 12/12/20 16:01 Consult Physician Routine Consulting Provider: Dominga Villar Consult Reason/Comments: Hiatal hernia Do you want consulting provider notified?: Yes Primary care physician: [facility] Course: This is a pleasant 85 years old female with past medical history of paroxysmal Atrial Fibrillation, Coronary Artery Disease , GERD, hiatal hernia status post surgical repair, Hyperlipidemia, hypothyroidism,history of TAVR with aortic valve replacement. She is a patient of Dr. gill Hensley. Patient presents because of dyspnea 2 days associated with coughing and secretions back in her throat but no phlegm. No chest pain. No urinary symptoms. She had some diarrhea but stopped now. Walking with no difficulties. Patient denies smoking, alcohol or illicit drugs. On admission her Vitas looks stable. Her creatinine 0.9 which looks at baseline on GFR is showing third stage chronic kidney disease, d-dimer elevated at 2.02. CTA of the chest showing no pulmonary embolism, bilateral hilar and mediastinal lymphadenopathy and thickened distal esophageal tissue suspicious for recent hiatal hernia repair. Ultrasound of the leg is negative for DVT. EKG showing normal sinus rhythm at [address]-T changes. QTC 487. BNP is elevated at 4730. On admission patient was started on Lasix 40 mg 3 times a day, cefepime, home dose of Eliquis 12/13/2020 Patient dyspnea is better today, her leg swelling is better today and only minimal, therefore her Lasix were lowered from 40 mg 3 times a day down to twice a day. With mild grade fever and leukocytosis may be some mild elements of aspiration pneumonia. Patient is continued on cefepime for now. No surgical intervention. And she kept on home dose of Eliquis 2.5 mg and Pepcid for GI prophylaxis. procalcitonin is mildly elevated at 0.32. And chest x-ray showing bibasilar atelectasis versus early infiltrate. Wound about her bilateral hilar and mediastinal lymphadenopathy with recommendation to follow up in 3 months and she agrees with him already on the case 12/14/2020 Patient previous temporary comfortably. No exertional dyspnea. Like edema improved. At the Lasix was discontinued for her acute CHF exacerbation With some elements of aspiration pneumonia which is mild responding to cefepime. I agree with decreasing the dose of cefepime down to 1 g twice a day. she Is on home dose of Eliquis. Other than one she is medically stable. Informed about her hilar and mediastinal lymphadenopathy on CAT scan with recommendation for follow-up in 3 months and she agrees. Risk of cancer explained to her 12/15/2020: Patient with up to the bathroom. Oral intake fair No edema. A bit tired. 12/16/2020: Feeling well. Breathing stable. Cleared by cardiology and pulmonary. Oral intake fair. Consultation: Dr. Rosario at importance from pulmonary Cardiology Dr. Youngblood from general surgery On examination: VITAL SIGNS: 98, 69, 16, 103/59, 96% room air GENERAL APPEARANCE: Sitting up, awake, comfortable HEENT: Normal external appearance of nose and ear. Oral cavity normal EYES: Pupils equal. Conjunctiva normal. NECK: JVD not raised. Mass not palpable. RESPIRATORY: Respiratory effort normal. Lungs clear to auscultation. CARDIOVASCULAR: First and second sounds normal. No edema. ABDOMEN: Soft. Liver and spleen not palpable. No tenderness. No mass palpable. PSYCHIATRY: Alert and oriented x3. Mood and affect normal. Investigations: Chest x-ray [December 15]: Improved Venous Doppler ultrasound lower extremity bilateral: Negative for DVT Chest CTA: No PE. Pulmonary edema. Mediastinal hilar lymphadenopathy. Assessment and plan: -Acute hypoxic respiratory failure secondary to aspiration pneumonia and possible CHF, improved 96% on room air -Acute on chronic congestive heart exacerbation and started dysfunction: Improved Lasix 20 mg twice a day -Bilateral pleural effusion secondary to CHF: Improved Received diuretics -Aortic valve disease status post,TAVR -Paroxysmal atrial fibrillation Lopressor 12.5 by mouth twice a day. Eliquis 2.5 by mouth twice a day -Essential hypertension Lopressor 12.5 by mouth twice a day -Hypothyroidism Synthroid 88 g a day -Hyperlipidemia Lipitor 40 mg a day Disposition: Home Patient Condition at Discharge: Fair Plan - Discharge Summary Discharge Rx Participant: No New Discharge Prescriptions: New Potassium Chloride ER [K-Dur 20] 20 meq PO DAILY #30 tab Continue Ubidecarenone [Co Q-10] 100 mg PO DAILY Multivit-Min/FA/Lycopen/Lutein [Centrum Silver Tablet] 1 tab PO HS Atorvastatin [Lipitor] 40 mg PO DAILY #30 tablet Nitroglycerin Sl Tabs [Nitrostat] 0.4 mg SUBLINGUAL Q5M PRN #30 tab PRN Reason: Chest Pain Amiodarone [Cordarone] 200 mg PO DAILY Aspirin [Adult Low Dose Aspirin EC] 81 mg PO HS Omeprazole [PriLOSEC] 40 mg PO DAILY@1600 Levothyroxine Sodium [Synthroid] 88 mcg PO DAILY Apixaban [Eliquis] 2.5 mg PO BID #60 tab Isosorbide Mononitrate ER [Imdur] 15 mg PO DAILY Changed Metoprolol Tartrate [Lopressor] 12.5 mg PO BID #0 Furosemide [Lasix] 20 mg PO BID #60 tab Discharge Medication List Aspirin [Adult Low Dose Aspirin EC] 81 mg PO HS 09/19/20 [History] Levothyroxine Sodium [Synthroid] 88 mcg PO DAILY 09/19/20 [History] Multivit-Min/FA/Lycopen/Lutein [Centrum Silver Tablet] 1 tab PO HS 09/19/20 [History] Omeprazole [PriLOSEC] 40 mg PO DAILY@1600 09/19/20 [History] Ubidecarenone [Co Q-10] 100 mg PO DAILY 09/19/20 [History] Apixaban [Eliquis] 2.5 mg PO BID #60 tab 11/15/20 [Rx] Atorvastatin [Lipitor] 40 mg PO DAILY #30 tablet 11/15/20 [Rx] Nitroglycerin Sl Tabs [Nitrostat] 0.4 mg SUBLINGUAL Q5M PRN #30 tab 11/17/20 [Rx] Amiodarone [Cordarone] 200 mg PO DAILY 12/12/20 [History] Isosorbide Mononitrate ER [Imdur] 15 mg PO DAILY 12/12/20 [History] Furosemide [Lasix] 20 mg PO BID #60 tab 12/16/20 [Rx] Metoprolol Tartrate [Lopressor] 12.5 mg PO BID #0 12/16/20 [Rx] Potassium Chloride ER [K-Dur 20] 20 meq PO DAILY #30 tab 12/16/20 [Rx] Follow up Appointment(s)/Referral(s): cardiology, [Other] - As Needed (with your prexisting follow up appt. ) Ayden Adrian MD [Primary Care Provider] - 12/24/20 5:00 pm [facility] [NON-STAFF] - Adriel Choudhury MD [STAFF PHYSICIAN] - 01/08/21 2:45 pm Patient Instructions/Handouts: Heart Failure (DC) Activity/Diet/Wound Care/Special Instructions: low sodium diet check and monitor your weight weekly and bring this log with you to your appts. bmp - 7 days Discharge Disposition: HOME WITH HOME HEALTH SERVICES
== END 2020-12-16 14:12 | disposition home health service (06) | DRG 291 ==
LOC: EC 14:02 → 4SSUR 14:31
PROVIDERS: ADMIT Hospitalist; ATTEND Hospitalist
DX: I13.0 Hypertensive heart and chronic kidney disease with heart failure and stage 1 through stage 4 chronic kidney disease, or unspecified chronic kidney disease (principal); I50.33 Acute on chronic diastolic (congestive) heart failure; J69.0 Pneumonitis due to inhalation of food and vomit; J96.01 Acute respiratory failure with hypoxia; J98.11 Atelectasis; E03.9 Hypothyroidism, unspecified; I48.0 Paroxysmal atrial fibrillation; Z20.822 Contact with and (suspected) exposure to COVID-19; N18.30 Chronic kidney disease, stage 3 unspecified; K21.9 Gastro-esophageal reflux disease without esophagitis; R01.1 Cardiac murmur, unspecified; R59.1 Generalized enlarged lymph nodes; I08.0 Rheumatic disorders of both mitral and aortic valves; E78.5 Hyperlipidemia, unspecified; I25.10 Atherosclerotic heart disease of native coronary artery without angina pectoris; I25.2 Old myocardial infarction; Z79.890 Hormone replacement therapy; Z79.01 Long term (current) use of anticoagulants; Z79.82 Long term (current) use of aspirin; Z79.899 Other long term (current) drug therapy; Z93.1 Gastrostomy status; Z95.2 Presence of prosthetic heart valve; Z88.1 Allergy status to other antibiotic agents; Z88.2 Allergy status to sulfonamides; Z91.048 Other nonmedicinal substance allergy status
CPT/HCPCS: 36415; 71045; 71046; 71275; 80048; 80053; 83605; 83735; 83880; 84145; 84484; 85025; 85379; 85610; 85730; 93005; 93970; 99285